=== PATIENT | male | born 1950 | race Caucasian/White ===

== ENCOUNTER 2016-06-12 10:15 | Emergency (ER) | payer SELFPAY ==
[~2016-06-12] VITALS: Wt 81.0 kg
== END 2016-06-12 15:20 | disposition left against medical advice (07) ==
LOC: E/R 10:15
DX: Z53.21 Procedure and treatment not carried out due to patient leaving prior to being seen by health care provider (principal)

== ENCOUNTER 2016-08-04 03:07 | Inpatient (IN) | payer MEDICARE, OTHER ==
[~2016-08-04] VITALS: Ht 165.1 cm; Wt 80.2 kg
[2016-08-04] MEDS ORDERED: SOD CHLORIDE 0.9% 1,000 ML IV STA (03:35)
[2016-08-04] MEDS ORDERED: morphine 4 MG/ML VIAL IV STA (03:35)
[2016-08-04] MEDS ORDERED: FAMOTIDINE 20 MG INJ IV STA (03:35)
[2016-08-04] MEDS ORDERED: ONDANSETRON 4 MG INJ IV STA (03:35)
--- NOTE | 2016-08-04 04:22 | RADRPT ---
PROCEDURE: CT abdomen and pelvis without intravenous contrast. CLINICAL INDICATION: Pain. TECHNIQUE: CT of the abdomen/pelvis was performed utilizing axial images with reconstructions in s agittal and coronal planes. The administered radiation dose is CTDI 12.8 mGy, DLP 820.4 mGy-cm. COMPARISON: No pertinent prior examinations were submitted for comparison. FINDINGS: Visualized Chest: There is moderate cardiomegaly. Some coronary artery and aortic valvular calcific ations are noted. Abdomen: The spleen, pancreas, and adrenal glands are unremarkable. Stones are noted within the gallbladde r. The liver is diffusely decreased in attenuation, compatible with hepatic steatosis. The kidneys are without hydronephrosis. No definite urinary calculi are seen. Multiple moderately dilated loops of small bowel are noted in the left abdomen. The distal small ariella wel is collapsed. A transition point is noted within the midabdomen at the site of a small bowel an astomoses. Some feculent material is noted within the more proximal loops along with some mild surr ounding inflammatory changes. There is no intra-abdominal free air. No intra-abdominal fluid colle ctions are seen. Numerous diverticula are noted along the descending and sigmoid colon without evid ence of diverticulitis. The appendix is normal. There is no evidence of intra-abdominal adenopathy or free fluid. Pelvis: There is streak artifact from a left total hip replacement which limits evaluation of the pelvis. T he prostate is grossly unremarkable. No pelvic adenopathy or free fluid is seen. The urinary bladd er is unremarkable. Small bilateral fat containing inguinal hernias are noted. Osseous structures: The left total hip replacement is noted. IMPRESSION: Small bowel obstruction with a transition point regional to a small bowel anastomoses in the midabdo men. Hepatic steatosis. Cholelithiasis. Colonic diverticulosis. Small bilateral fat containing inguinal hernias. RPTAT: HIKT .Mikey Bowman MD, MD Date Time Electronically viewed and signed by .Mikey Bowman MD, on 08/04/2016 04:21 .T/
[2016-08-04 04:43] LABS: ADD SCAN DIFF NO
[2016-08-04 04:52] LABS: BASOPHILS % 0.5 % (0.0-2.0); EOSINOPHILS # 0.1 10^3/ul (0.0-0.5); EOSINOPHILS % 0.7 % (0.0-7.0); HEMATOCRIT 39.2 % (42.0-52.0); HEMOGLOBIN 11.9 g/dl (14.0-18.0); LYMPHOCYTES # 1.1 10^3/ul (0.8-2.9); LYMPHOCYTES % 12.7 % (15.0-51.0); MEAN CORPUSCULAR HEMOGLOBIN 24.2 pg (29.0-33.0); MEAN CORPUSCULAR HGB CONC 30.4 g/dl (32.0-37.0); MEAN CORPUSCULAR VOLUME 79.7 fl (82.0-101.0); MEAN PLATELET VOLUME 9.8 fl (7.4-10.4); NEUTROPHIL # 6.3 10^3/ul (1.6-7.5); NEUTROPHILS % 73.9 % (39.0-77.0); PLATELET COUNT 213 10^3/UL (140-415); RED BLOOD COUNT 4.92 10^6/ul (4.70-6.10); RED CELL DISTRIBUTION WIDTH 15.2 % (11.5-14.5); WHITE BLOOD COUNT 8.5 10^3/ul (4.8-10.8)
[2016-08-04 04:54] LABS: ADD UMIC NO; ALBUMIN 3.7 g/dl (3.3-4.9); URINE BILIRUBIN (Dip) NEGATIVE (NEGATIVE); URINE BLOOD (Dip) NEGATIVE (NEGATIVE); URINE COLOR YELLOW (YELLOW); URINE GLUCOSE (Dip) NEGATIVE (NEGATIVE); URINE KETONES (Dip) NEGATIVE (NEGATIVE); URINE LEUKOCYTE ESTERASE (Dip) NEGATIVE (NEGATIVE); URINE NITRITE (Dip) NEGATIVE (NEGATIVE); URINE TOTAL PROTEIN (Dip) NEGATIVE (NEGATIVE); URINE UROBILINOGEN (Dip) 0.2 E.U./dL (0.1-1.0)
[2016-08-04 04:57] LABS: ALBUMIN/GLOBULIN RATIO 1.37; BILIRUBIN,INDIRECT 0.3 mg/dl (0-1.1); BILIRUBIN,TOTAL 0.3 mg/dl (0.2-1.3); CREATININE 0.75 mg/dl (0.61-1.24); TOTAL PROTEIN 6.4 g/dl (6.1-8.1)
[2016-08-04 04:58] LABS: CALCIUM 8.7 mg/dl (8.4-10.2)
--- NOTE | 2016-08-04 04:59 | ERA ---
ER Documentation Chief Complaint Date/Time DATE: 08/04/16 TIME: 04:58 Chief Complaint LLQ ABD PAIN SINCE 6PM LAST NIGHT, +N/V -DIARRHEA HPI This is a 65-year-old male with left thoracoabdominal (pain last night. He had nausea vomiting. He has had no diarrhea. Last bowel movement 2 days ago. Patient is a history of stomach surgery remotely. ROS All systems reviewed and are negative except as per history of present illness. PMhx/Soc History of Surgery: Yes (STOMACH SX) Anesthesia Reaction: No Hx Neurological Disorder: No Hx Respiratory Disorders: Yes (TUBERCULOSIS) Hx Psychiatric Problems: No Hx Miscellaneous Medical Probl: No Hx Alcohol Use: No Hx Substance Use: No Hx Tobacco Use: No Smoking Status: Never smoker Physical Exam Vitals Vital Signs Date Time Temp Pulse Resp B/P Pulse Ox O2 Delivery O2 Flow Rate FiO2 08/04/16 04:39 61 18 112/62 97 Room Air 08/04/16 03:11 98.6 64 18 138/73 97 Physical Exam Const: [] Head: Atraumatic Eyes: Normal Conjunctiva ENT: Normal External Ears, Nose and Mouth. Neck: Full range of motion..~ No meningismus. Resp: Clear to auscultation bilaterally Cardio: Regular rate and rhythm, no murmurs Abd: Soft, non tender, non distended. Normal bowel sounds Skin: No petechiae or rashes Back: No midline or flank tenderness Ext: No cyanosis, or edema Neur: Awake and alert Psych: Normal Mood and Affect Result Diagram: 08/04/16 0426 Results 24 hrs Laboratory Tests Test 08/04/16 04:26 Basophils # 0.010^3/ul Basophils % 0.5% Eosinophils # 0.110^3/ul Eosinophils % 0.7% Hematocrit 39.2% Hemoglobin 11.9g/dl Lymphocytes # 1.110^3/ul Lymphocytes % 12.7% Mean Corpuscular Hemoglobin 24.2pg Mean Corpuscular Hemoglobin Concent 30.4g/dl Mean Corpuscular Volume 79.7fl Mean Platelet Volume 9.8fl Monocytes # 1.010^3/ul Monocytes % 12.0% Neutrophils # 6.310^3/ul Neutrophils % 73.9% Nucleated Red Blood Cells # 0.010^3/ul Nucleated Red Blood Cells % 0.0/100WBC Platelet Count 53773^3/UL Red Blood Count 4.9210^6/ul Red Cell Distribution Width 15.2% White Blood Count 8.510^3/ul Current Medications Medications (Trade) Dose Ordered Sig/Karoline Route PRN Reason Start Time Stop Time Status Last Admin Dose Admin Sodium Chloride (NS) 1,000 ml @ 1,000 mls/hr Q1H STAT IV 08/04/16 03:35 08/04/16 04:34 DC 08/04/16 04:37 Morphine Sulfate (morphine) 4 mg ONCE STAT IV 08/04/16 03:35 08/04/16 03:37 DC 08/04/16 04:38 Ondansetron HCl (Zofran Inj) 4 mg ONCE STAT IV 08/04/16 03:35 08/04/16 03:37 DC 08/04/16 04:38 Famotidine (Pepcid Iv) 20 mg ONCE STAT IV 08/04/16 03:35 08/04/16 03:37 DC 08/04/16 04:38 Procedures/MDM Medical decision-makin-year-old male with evidence of small bowel obstruction. Patient will be admitted to hospitalist. Dr. Mcarthur has been consulted for surgery. Departure Diagnosis: Primary Impression: Abdominal pain Qualified Code: R10.84 - Generalized abdominal pain Additional Impression: Small bowel obstruction Condition: Serious SAVI JACOBS Aug 04, 2016 04:59
[2016-08-04 05:07] LABS: POTASSIUM 4.1 mmol/L (3.5-5.1)
[2016-08-04 05:27] VITALS: TEMP 97.7
[2016-08-04 05:53] VITALS: BP 139/66; RESP 18
[2016-08-04 05:59] VITALS: Ht 165.1 cm; Wt 80.2 kg
[2016-08-04] MEDS ORDERED: morphine 4 MG/ML VIAL IV PRN (06:30)
[2016-08-04] MEDS ORDERED: ISON300T72 PO (08:36)
[2016-08-04] MEDS: DEXTROSE 5%-0.45% NACL 1,000 ML IV SCH ×4 (08:39→19:55)
[2016-08-04 09:57] LABS: CHOL/HDL RATIO 3.4 RATIO
[2016-08-04 10:33] VITALS: BP 138/66; PULSE 55; RESP 18
--- NOTE | 2016-08-04 10:55 | HP ---
DATE OF ADMISSION: 08/04/2016 CHIEF COMPLAINT: Abdominal pain. HISTORY OF PRESENT ILLNESS: The patient is 65-year-old male with a history of chronic abdominal lucina n, of abdominal surgery who presented to the emergency department with abdominal pain. He sta bennie that his pain is mainly localized in the left lower quadrant area and this particular pain has b een going on for a few days now. He states he has been having abdominal pain for about 5 years and he went on to say that in 2013 at [facility], he had from his description what seems like a laparoto my. He stated he did the surgery because "I was having pain and they did not find anything." He st ates that he has been having abdominal pain sometimes every month, sometimes weekly for about 5 year s now. He denied any nausea or vomiting, chest pain, shortness of breath, fever or chills. He stat ed he has been having no issues with bowel movement and he has been passing gas. He denied abdomina l distention and his abdomen is actually soft and nondistended. When he came to the ER, imaging ar ws possible small-bowel obstruction and as such, he is admitted for surgical evaluation. REVIEW OF SYSTEMS: A 12-point review of systems was performed and is negative except as mentioned i n the HPI. PAST MEDICAL HISTORY: As per HPI. SOCIAL HISTORY: He drinks alcohol occasionally. Denied a history of tobacco or illicit drug use. ALLERGIES AND HOME MEDICATIONS: Please see meds. PHYSICAL EXAMINATION: GENERAL: The patient is lying in bed in no acute distress. He is answering questions appropriately and able to speak in full sentences. HEENT: No obvious head deformity. Pupils are reactive to light. Extraocular muscles intact. CARDIOVASCULAR: Regular rate and rhythm. No extra sounds. LUNGS: Clear. ABDOMEN: Soft. There is tenderness to palpation in the left lower quadrant area. There is some gu arding to deep palpation in that area. His abdomen is soft. It is not rigid. It is not distended. There are positive bowel sounds. EXTREMITIES: No edema. IMPRESSION: 1. Small-bowel obstruction. 2. Left lower quadrant abdominal pain, likely secondary to above. 3. History of abdominal surgery. PLAN: We will keep him n.p.o. We will provide pain medication and antiemetics as needed. Currentl y, he is awaiting surgical evaluation by Dr. Mcarthur. His abdomen is soft and is not distended and a s such, an NG tube is not warranted at this time. Further workup and management per clinical course. Dictated By: SAVI GUERRA/CELESTE Conf#: [id number] DID#: [id number]
--- NOTE | 2016-08-04 11:28 | HP ---
DATE OF ADMISSION: 08/04/2016 REASON FOR CONSULTATION: Small-bowel obstruction. HISTORY OF PRESENT ILLNESS: The patient is a 65-year-old male who presents to the emergency room wi th nausea and vomiting with a history of no bowel movements for [address] in the emergency room sh owed a small-bowel obstruction with a transition point at a small bowel anastomosis. According to t he patient, he had surgery 2-1/2 years ago at [facility] for what sounds like a small-bowel obstruct ion. He has had no fevers or chills. PAST MEDICAL HISTORY: As noted above. OUTPATIENT MEDICATIONS: Patient takes INH for tuberculosis. ALLERGIES: NONE. REVIEW OF SYSTEMS: HEAD, EARS, EYES, NOSE AND THROAT: Unremarkable. PULMONARY: As in the HPI. CARDIAC: No history of chest pain or arrhythmia. ABDOMEN: As in the HPI. EXTREMITIES: Unremarkable. PHYSICAL EXAMINATION: GENERAL: The patient is a non-Welsh speaking male who is awake and alert, in no acute di stress. HEAD, EARS, EYES, NOSE, THROAT: Within normal limits. LUNGS: Clear. HEART: Regular rhythm. ABDOMEN: Soft and nontender. There is a well-healed vertical midline scar with several small reduc ible hernias. EXTREMITIES: Unremarkable. LABORATORY DATA: Hematocrit is 39.2 with a white count of 8500. BUN, glucose, electrolytes are unr emarkable. IMPRESSION: Small bowel noted on CT scan. PLAN: The patient will undergo small bowel follow through. Further recommendations will be forthco darlene based on the patient's further workup and clinical course. Dictated By: FLY DODD/CELESTE Conf#: [id number] DID#: [id number]
[2016-08-04] MEDS: ONDANSETRON 4 MG INJ IV PRN (14:13)
[2016-08-04] MEDS ORDERED: DIATR MEGLU/DIATRIZOATE SODIUM 120 ML BTL ONE (14:42)
[2016-08-04 15:39] VITALS: BP 156/70; PULSE 64; RESP 21
--- NOTE | 2016-08-04 17:42 | RADRPT ---
PROCEDURE: XR small bowel follow-through series CLINICAL INDICATION: Abdominal pain. Small bowel obstruction pattern on the CT TECHNIQUE: AP abdomen x-ray, supine slot floor person images, immediate, 15-minute, 30-minute point, 60-minute and 2-hour AP supine images after the administration of an and certain amount of non-specified ente grazyna contrast media. COMPARISON: Noncontrast CT abdomen and pelvis 08/04/2016 FINDINGS: Recruiting Team Lead images demonstrate gas within the colon and some no gaseous distended loops of the jejunum. T here is no evidence of pathologic calcification. The immediate image demonstrates contrast within the stomach which is normal in caliber as well as i n the duodenum and the jejunum without evidence of distension. At 30 minutes and 60 minutes there i s contrast media within the jejunum and majority of the ileum, the maximum caliber of the jejunum ap proximately 3.1 cm. At 2 hours, contrast media seen within the colon to the level of the splenic fl exure. Note is made of a left hip arthroplasty changes. No acute osseous abnormality is evident, mi ld lumbar spondylosis is seen. RPTAT:HJJR IMPRESSION: Small bowel follow-through series demonstrates contrast media reaching the splenic flexure 2 hours a fter ingestion, the pattern more consistent with an adynamic ileus than the mid small bowel obstruct ion as suggested on the CT of 08/04/2016. Physician Tiffany Date Time Electronically viewed and signed by Physician Tiffany on 08/04/2016 17:41 /
[2016-08-04 19:43] VITALS: BP 119/66; RESP 18
[2016-08-05] MEDS: DEXTROSE 5%-0.45% NACL 1,000 ML IV SCH ×2 (05:21→15:34)
[2016-08-05 05:29] LABS: ADD SCAN DIFF NO
[2016-08-05 05:47] LABS: BASOPHILS % 0.6 % (0.0-2.0); EOSINOPHILS # 0.1 10^3/ul (0.0-0.5); EOSINOPHILS % 1.9 % (0.0-7.0); HEMATOCRIT 36.8 % (42.0-52.0); HEMOGLOBIN 11.1 g/dl (14.0-18.0); LYMPHOCYTES # 1.2 10^3/ul (0.8-2.9); LYMPHOCYTES % 25.2 % (15.0-51.0); MEAN CORPUSCULAR HEMOGLOBIN 24.2 pg (29.0-33.0); MEAN CORPUSCULAR HGB CONC 30.2 g/dl (32.0-37.0); MEAN CORPUSCULAR VOLUME 80.3 fl (82.0-101.0); MEAN PLATELET VOLUME 9.7 fl (7.4-10.4); MONOCYTE # 0.7 10^3/ul (0.3-0.9); MONOCYTES % 13.7 % (0.0-11.0); NEUTROPHIL # 2.8 10^3/ul (1.6-7.5); NEUTROPHILS % 58.4 % (39.0-77.0); PLATELET COUNT 218 10^3/UL (140-415); RED BLOOD COUNT 4.58 10^6/ul (4.70-6.10); RED CELL DISTRIBUTION WIDTH 15.6 % (11.5-14.5); WHITE BLOOD COUNT 4.8 10^3/ul (4.8-10.8)
[2016-08-05 05:49] LABS: POTASSIUM 3.9 mmol/L (3.5-5.1)
[2016-08-05 05:52] LABS: CREATININE 0.77 mg/dl (0.61-1.24)
[2016-08-05 05:53] LABS: CALCIUM 8.1 mg/dl (8.4-10.2)
[2016-08-05 07:24] VITALS: BP 120/60; RESP 18
[2016-08-05] MEDS: PANTOPRAZOLE 40 MG INJ IV SCH (09:49)
--- NOTE | 2016-08-05 10:51 | PN ---
DATE: 08/05/2016 SUBJECTIVE: The patient has less abdominal pain, had small bowel follow through performed yesterday . No acute events overnight. OBJECTIVE: VITAL SIGNS: Stable except the heart rate is in the 55 to 64 range, rest of the vitals are stable. GENERAL: Patient sitting in chair, answering questions appropriately. No acute distress. HEENT: Pupils equal, round, reactive to light. Extraocular muscles intact. NECK: Supple, no thyromegaly. LUNGS: Clear to auscultation bilaterally. CARDIOVASCULAR: S1, S2 heard. No rubs or gallops. ABDOMEN: Soft, nontender, nondistended. Hypoactive bowel sounds. No rebound or guarding. MUSCULOSKELETAL: No lower extremity edema bilaterally. NEUROLOGIC: No focal deficits. LABORATORY DATA: Basic metabolic panel is normal. CBC is normal. Again, small bowel follow throug h shows contrast media reaching the splenic flexure 2 hours after ingestion. Pattern is more consis tent with an adynamic ileus than the mid small-bowel obstruction as suggested on the CT scan. ASSESSMENT AND PLAN: A 65-year-old male with history of chronic abdominal pain and abdominal surger ies who presents with ileus versus small-bowel obstruction, slowly improving. 1. Again, abdominal pain secondary to looks like small-bowel obstruction versus ileus, slowly impro ving. For now, continue n.p.o. status but follow with general surgery team given the results of the small bowel follow through. It may be okay to start diet on the patient. He apparently is having b owel movement as well. Continue pain control medications as needed. 2. Questionable history of remote TB. The patient apparently has been taking isoniazid INH as an ou tpatient for the last 8 months. We will continue that now. No signs of any coughing or fevers or c hills. 3. Gastrointestinal prophylaxis. Add PPI. 4. Deep venous thrombosis prophylaxis, sequential compression devices. Dictated By: MICHELLE STALLINGS Conf#: [id number] DID#: [id number]
[2016-08-05] MEDS: ONDANSETRON 4 MG INJ IV PRN (11:09)
--- NOTE | 2016-08-05 16:09 | PN ---
DATE: HISTORY OF PRESENT ILLNESS: The small bowel follow through shows no obstruction. He has had 2 christopher l movements and his pain has resolved. PLAN: Start clear liquids. The patient can be advanced as tolerated and can be discharged if myra ates general diet. Dictated By: FLY DODD/CELESTE Conf#: [id number] DID#: [id number]
[2016-08-05 19:21] VITALS: BP 123/60; RESP 18
[2016-08-06] MEDS: DEXTROSE 5%-0.45% NACL 1,000 ML IV SCH ×2 (01:32→08:30)
[2016-08-06] MEDS: PANTOPRAZOLE 40 MG INJ IV SCH (05:27)
[2016-08-06 05:31] LABS: ADD SCAN DIFF NO
[2016-08-06 05:34] LABS: BASOPHILS % 0.6 % (0.0-2.0); EOSINOPHILS # 0.1 10^3/ul (0.0-0.5); EOSINOPHILS % 1.5 % (0.0-7.0); HEMATOCRIT 37.9 % (42.0-52.0); HEMOGLOBIN 11.3 g/dl (14.0-18.0); LYMPHOCYTES # 1.3 10^3/ul (0.8-2.9); LYMPHOCYTES % 25.3 % (15.0-51.0); MEAN CORPUSCULAR HGB CONC 29.8 g/dl (32.0-37.0); MEAN CORPUSCULAR VOLUME 80.6 fl (82.0-101.0); MEAN PLATELET VOLUME 9.7 fl (7.4-10.4); MONOCYTE # 0.6 10^3/ul (0.3-0.9); MONOCYTES % 12.4 % (0.0-11.0); NEUTROPHIL # 3.1 10^3/ul (1.6-7.5); NEUTROPHILS % 59.8 % (39.0-77.0); PLATELET COUNT 212 10^3/UL (140-415); RED CELL DISTRIBUTION WIDTH 15.7 % (11.5-14.5); WHITE BLOOD COUNT 5.2 10^3/ul (4.8-10.8)
[2016-08-06 05:45] LABS: POTASSIUM 3.8 mmol/L (3.5-5.1)
[2016-08-06 05:47] LABS: CREATININE 0.73 mg/dl (0.61-1.24)
[2016-08-06 05:48] LABS: CALCIUM 8.1 mg/dl (8.4-10.2)
[2016-08-06 07:48] VITALS: BP 131/66; RESP 18
--- NOTE | 2016-08-06 10:01 | PDOCDIS ---
Discharge Instructions CONDITION Patient Condition: Stable HOME CARE INSTRUCTIONS: Diet Instructions: Regular ACTIVITY: Activity Restrictions: Slowly Increase Activity FOLLOW UP/APPOINTMENTS Appointments Please take your medications as prescribed, and see your doctor in clinic in 1 week. MICHELLE ADHIKARI Aug 06, 2016 10:01
[2016-08-06] MEDS ORDERED: ONDA-43 PO (10:02)
--- NOTE | 2016-08-06 10:06 | PN ---
DATE: 08/06/2016 The patient is tolerating a diet and has had bowel function. He has no abdominal pain. His abdomin al examination is benign. PLAN: The patient can be discharged. There are no further surgical recommendations. Dictated By: FLY DODD/CELESTE Conf#: [id number] DID#: [id number]
--- NOTE | 2016-08-06 10:27 | DS ---
DATE OF ADMISSION: 08/04/2016 DATE OF DISCHARGE: 08/06/2016 HOSPITAL COURSE: This is a 65-year-old male originally admitted on 08/04/2016 being discharged home on 08/06/2016. The patient came in with abdominal pain. He was found with a small-bowel obstructi on. He has had a prior history of abdominal surgery in the past. He was admitted, seen by general [facility] team. He was admitted to medical/surgical floor. He was initially made n.p.o. and conservat bri treatment was started. He underwent a small bowel follow-through study, which showed an adynami c ileus picture and again, patient was conservatively treated. After being evaluated by surgery isaac rodrigues, he was started on a clear liquid diet and he has been tolerating that well. If he handles a regu lar diet the rest of the day today, he has been given instructions by surgery team to be discharged today in improved condition. His vital signs remain stable. His labs remain stable. He had no fev ers. He was able to ambulate and tolerate a liquid diet at this point. Lipase was normal. DISCHARGE MEDICATIONS: If he goes today, he will be sent with the following medications: 1. Zofran 4 mg q.6h. p.r.n. 2. Continue isoniazid 300 mg daily. FOLLOWUP: He will need to follow up with a regular doctor in the clinic in the next 1 to 2 weeks. FINAL DIAGNOSES: 1. Abdominal pain secondary to small-bowel obstruction versus ileus, now slowly improving. 2. Remote history of tuberculosis, now taking isoniazid. No fevers, no leukocytosis, no cough pres ently. 3. History of chronic abdominal pain and prior history of abdominal surgery in the past. Time spent discharging the patient 40 minutes. Dictated By: MICHELLE STALLINGS Conf#: [id number] DID#: [id number]
[2016-08-06] MEDS ORDERED: ISONIAZID 300 MG TAB PO SCH (10:30)
[2016-08-07] MEDS ORDERED: PANTOPRAZOLE (EC) 40 MG TAB PO SCH (06:00)
== END 2016-08-06 14:51 | disposition home or self-care (01) | DRG 392 ==
LOC: E/R 03:07 → MS2 04:56
PROVIDERS: ADMIT Internal Medicine; ATTEND Internal Medicine
DX: R10.32 Left lower quadrant pain (principal); K56.60 Unspecified intestinal obstruction; K56.7 Ileus, unspecified; Z86.11 Personal history of tuberculosis
CPT/HCPCS: 36415; 74176; 74250; 80048; 80053; 80061; 81003; 83036; 83690; 85025; 96374; 96375; C9113; J2270; J2405; J7030; J7042

== ENCOUNTER 2016-12-17 03:49 | Inpatient (IN) | payer MEDICARE, OTHER ==
[~2016-12-17] VITALS: Ht 167.6 cm; Wt 82.8 kg
[~2016-12-17 03:49] MED LIST: ISON300T72 PO; ONDA-43 PO
[2016-12-17] MEDS ORDERED: morphine 4 MG/ML VIAL IV STA (04:08)
[2016-12-17] MEDS ORDERED: SOD CHLORIDE 0.9% 1,000 ML IV STA (04:08)
[2016-12-17] MEDS ORDERED: ONDANSETRON 4 MG INJ IV STA (04:08)
[2016-12-17 04:23] LABS: ADD SCAN DIFF NO
[2016-12-17 04:24] LABS: BASOPHILS % 0.5 % (0.0-2.0); EOSINOPHILS # 0.1 10^3/ul (0.0-0.5); EOSINOPHILS % 0.6 % (0.0-7.0); HEMATOCRIT 43.4 % (42.0-52.0); HEMOGLOBIN 13.9 g/dl (14.0-18.0); LYMPHOCYTES # 1.4 10^3/ul (0.8-2.9); MEAN CORPUSCULAR HEMOGLOBIN 26.7 pg (29.0-33.0); MEAN CORPUSCULAR VOLUME 83.3 fl (82.0-101.0); MEAN PLATELET VOLUME 10.2 fl (7.4-10.4); MONOCYTE # 0.8 10^3/ul (0.3-0.9); MONOCYTES % 10.3 % (0.0-11.0); NEUTROPHIL # 5.7 10^3/ul (1.6-7.5); NEUTROPHILS % 71.3 % (39.0-77.0); PLATELET COUNT 167 10^3/UL (140-415); RED BLOOD COUNT 5.21 10^6/ul (4.70-6.10); RED CELL DISTRIBUTION WIDTH 17.8 % (11.5-14.5)
[2016-12-17 04:58] LABS: ALBUMIN 4.7 g/dl (3.3-4.9); ALBUMIN/GLOBULIN RATIO 1.74; BILIRUBIN,INDIRECT 0.3 mg/dl (0-1.1); BILIRUBIN,TOTAL 0.3 mg/dl (0.2-1.3); CALCIUM 8.7 mg/dl (8.4-10.2); CREATININE 0.86 mg/dl (0.61-1.24); POTASSIUM 4.2 mmol/L (3.5-5.1); TOTAL PROTEIN 7.4 g/dl (6.1-8.1)
--- NOTE | 2016-12-17 05:06 | RADRPT ---
PROCEDURE: CT Abdomen and pelvis without contrast. CLINICAL INDICATION: Abdominal pain. TECHNIQUE: CT scan of the abdomen and pelvis was performed on a multi-detector high-resolution CT scanner. Contiguous axial images were obtained from the lung bases to the ischial tuberosities wit hout intravenous contrast. Coronal and sagittal reformatted images were also obtained. Images were reviewed on the PACS workstation. One or more of the following dose reduction techniques were used: - Automated exposure control. - Adjustment of the mA and/or kV according to patient size. - Use of iterative reconstruction technique. Exam CTD/vol = 16.28 mGy. Total exam DLP = 1040.07 mGy-cm. COMPARISON: 08/04/2016. FINDINGS: Evaluation of the lung bases demonstrates mild bibasilar atelectasis. The heart is mildly enlarged Abdomen: The liver is normal in size. There is no focal mass or dilatation of the biliary tree. T he gallbladder is not distended. Multiple gallstones are identified. The spleen, pancreas and bila teral adrenal glands are within normal limits. Bilateral kidneys are normal in size with a small cy st within the upper pole of the left kidney. There is no radiopaque renal or ureteral calculus iden tified. There is no hydronephrosis or hydroureter. There is no retroperitoneal adenopathy. The ab dominal aorta is of normal caliber with scattered atherosclerotic calcifications. There are mildly distended loops of small bowel with air-fluid levels compatible with an ileus. The re is moderate retained stool within the colon. There is no bowel obstruction or free air. A kinza l appendix is identified. There are scattered diverticuli within the descending and sigmoid colon w ithout evidence of diverticulitis. There is no ascites. Pelvis: The bladder is unremarkable. There are bilateral small inguinal hernias containing fat. T he prostate and seminal vesicles are within normal limits. There is no significant pelvic adenopath y or free fluid. Evaluation of the osseous structures demonstrates no suspicious lytic or blastic lesion. The patient status post total left hip arthroplasty. IMPRESSION: Mildly distended loops of small bowel with air-fluid levels compatible with an ileus. There is no ariella wel obstruction. Descending and sigmoid diverticulosis without evidence of diverticulitis. Moderate retained stool within the colon. Bilateral small inguinal hernias containing fat. Cholelithiasis. Mild bibasilar atelectasis. Mild cardiomegaly. Vascular calcifications reflective of atherosclerosis. .Dwight Alston MD, Date Time Electronically viewed and signed by .Dwight Alston MD, on 12/17/2016 05:05 .T/
[2016-12-17] MEDS ORDERED: ONDANSETRON 4 MG INJ IV PRN (07:00)
[2016-12-17] MEDS ORDERED: ACETAMINOPHEN 325 MG TAB PO PRN (07:00)
--- NOTE | 2016-12-17 07:08 | ERA ---
ER Documentation Chief Complaint Date/Time DATE: 12/17/16 TIME: 07:05 Chief Complaint c/o abd pain x 2 days. (+) n/v. (+) abd surgery 2 yrs ago. HPI 66-year-old male with history of small bowel obstruction 2 years ago and diabetes presents with mid abdominal pain for the last 2 days with nausea and several episodes of vomiting. Vomiting is nonbloody and nonbilious. Denies diarrhea, states does suffer from constipation from time to time. No fever and chills ROS All systems reviewed and are negative except as per history of present illness. Medications Home Meds Active Scripts Ondansetron Hcl* (Zofran*) 4 Mg Tab, 4 MG PO Q6H Y for NAUSEA AND OR VOMITING, # 10 TAB Prov:MICHELLE ADHIKARI S. 08/06/16 Reported Medications Isoniazid* (Isoniazid*) 300 Mg Tablet, 300 MG PO DAILY, TAB 08/04/16 Allergies Allergies: Coded Allergies: No Known Allergies (Verified Allergy, Unknown, 08/04/16) PMhx/Soc History of Surgery: Yes (COLON SX 2013, LEFT HIP SX) Anesthesia Reaction: No Hx Neurological Disorder: No Hx Respiratory Disorders: No Hx Cardiac Disorders: No Hx Psychiatric Problems: No Hx Miscellaneous Medical Probl: No Hx Alcohol Use: No Hx Substance Use: No Hx Tobacco Use: No Smoking Status: Never smoker Physical Exam Vitals Vital Signs Date Time Temp Pulse Resp B/P Pulse Ox O2 Delivery O2 Flow Rate FiO2 12/17/16 03:52 98.9 82 20 165/72 98 Physical Exam Const: [] Mild distress, appears uncomfortable Head: Atraumatic Eyes: Normal Conjunctiva ENT: Normal External Ears, Nose and Mouth. Neck: Full range of motion..~ No meningismus. Resp: Clear to auscultation bilaterally Cardio: Regular rate and rhythm, no murmurs Abd: Soft, mild diffuse tenderness with moderate tenderness about the mid abdomen without guarding or rebound, non distended. Normal bowel sounds Skin: No petechiae or rashes Back: No midline or flank tenderness Ext: No cyanosis, or edema Neur: Awake and alert and oriented 3, no focal deficit Psych: Normal Mood and Affect Result Diagram: 12/17/1640912/17/16409 Results 24 hrs Laboratory Tests Test 12/17/16 04:10 White Blood Count 8.010^3/ul Red Blood Count 5.2110^6/ul Hemoglobin 13.9g/dl Hematocrit 43.4% Mean Corpuscular Volume 83.3fl Mean Corpuscular Hemoglobin 26.7pg Mean Corpuscular Hemoglobin Concent 32.0g/dl Red Cell Distribution Width 17.8% Platelet Count 94641^3/UL Mean Platelet Volume 10.2fl Neutrophils % 71.3% Lymphocytes % 17.0% Monocytes % 10.3% Eosinophils % 0.6% Basophils % 0.5% Nucleated Red Blood Cells % 0.0/100WBC Neutrophils # 5.710^3/ul Lymphocytes # 1.410^3/ul Monocytes # 0.810^3/ul Eosinophils # 0.110^3/ul Basophils # 0.010^3/ul Nucleated Red Blood Cells # 0.010^3/ul Sodium Level 136mmol/L Potassium Level 4.2mmol/L Chloride Level 102mmol/L Carbon Dioxide Level 24mmol/L Anion Gap 14 Blood Urea Nitrogen 16mg/dl Creatinine 0.86mg/dl Glucose Level 114mg/dl Calcium Level 8.7mg/dl Total Bilirubin 0.3mg/dl Direct Bilirubin 0.00mg/dl Indirect Bilirubin 0.3mg/dl Aspartate Amino Transf (AST/SGOT) 28IU/L Alanine Aminotransferase (ALT/SGPT) 30IU/L Alkaline Phosphatase 91IU/L Total Protein 7.4g/dl Albumin 4.7g/dl Globulin 2.70g/dl Albumin/Globulin Ratio 1.74 Lipase 140U/L Current Medications Medications (Trade) Dose Ordered Sig/Karoline Route PRN Reason Start Time Stop Time Status Last Admin Dose Admin Sodium Chloride (NS) 1,000 ml @ 1,000 mls/hr Q1H STAT IV 12/17/16 04:08 12/17/16 05:07 DC 12/17/16 04:14 Morphine Sulfate (morphine) 4 mg ONCE STAT IV 12/17/16 04:08 12/17/16 04:10 DC 12/17/16 04:14 Ondansetron HCl (Zofran Inj) 4 mg ONCE STAT IV 12/17/16 04:08 12/17/16 04:10 DC 12/17/16 04:14 Ondansetron HCl (Zofran Inj) 4 mg BRIDGE ORDER PRN IV NAUSEA AND/OR VOMITING 12/17/16 07:00 12/18/16 06:59 Acetaminophen (Tylenol Tab) 650 mg ER BRIDGE PRN PO MILD PAIN/FEVER 12/17/16 07:00 12/18/16 06:59 Procedures/MDM High risk patient with ileus. No signs of infection or unstable vital signs. Patient was given morphine and Zofran with relief of his nausea and some relief of his pain. Is also given IV fluid. Going to give any further doses of narcotics as the patient is already suffering from an ileus. I believe the patient should be admitted because he has had the resection before and like to prevent any further need for surgical intervention. I did speak with Dr. Mcleod, general surgeon on-call who will see the patient on consult. Spoke with Dr. Prince will be admitting. CT abdomen pelvis interpretation: Ileus without signs of overt obstruction, no free air, no abnormal fat stranding, no fracture Departure Diagnosis: Primary Impression: Abdominal pain Additional Impressions: Ileus Vomiting Condition: Stable KOSTA ARCE DO Dec 17, 2016 07:08
[2016-12-17] MEDS: DEXTROSE 5%-0.45% NACL 1,000 ML IV SCH ×2 (09:08→19:27)
[2016-12-17 09:27] LABS: MAGNESIUM 2.1 mg/dl (1.7-2.5); PHOSPHORUS 2.6 mg/dl (2.5-4.9)
--- NOTE | 2016-12-17 10:11 | HP ---
Date/Time of Note Date/Time of Note DATE: 12/17/16 TIME: 10:10 Assessment/Plan VTE Prophylaxis VTE Prophylaxis Intervention: SCD's Assessment/Plan Assessment/Plan 66-year-old male who presents with abdominal pain, nausea and vomiting as well as chronic constipation managed as follows: 1. Abdominal ileus likely secondary to chronic opioid use, no evidence of bowel obstruction on imaging 2. Abdominal pain, nausea vomiting likely secondary to #1 3. Incidental finding of cholelithiasis without cholecystitis: Stable 4. Asymptomatic bradycardia: Clear, Possible Electrolyte Abnormality 5. Diverticulosis without Diverticulitis Plan Change admits to telemetry, rule out an acute coronary syndrome, get a 2D echo, get official EKG, get magnesium and phosphorus levels Clear liquid diet, antiemetics, stool softeners and laxatives, surgical consult already obtained Pain control, further interventions per clinical course Supportive care. Prophylaxis: Pepcid/SCDs HPI/ROS Admit Date/Time Admit Date/Time 12/17/16 Hx of Present Illness This 66-year-old male who presented to the emergency room with abdominal pain nausea vomiting. about one days duration associated with pain is located in the mid abdomen. Chest and the patient does have intermittent episodes of constipation but at this time did have a bowel movement fairly recently. Imaging is showing ileus. Has had a history of hip surgery and abdominal surgery in the past and has been on opiate therapy on and off. He denies fever , denies chest pain, denies shortness of breath. He had an episode of bradycardia to the 30s and 40s, but this was asymptomatic. He had no dizziness , no fainting spells. Patient however did have a good volume of vomiting per his report. ROS 12 point review if systems was done and pertinent findings are as noted. PMH/Family/Social Past Medical History * Arthritis * Latent TB Past Surgical History 1: Colon Surgery 2. Left hip surgery Family History Significant Family History: no pertinent family hx Social History Alcohol Use: none Smoking Status: Never smoker Exam/Review of Systems Vital Signs Vitals Vital Signs Date Time Temp Pulse Resp B/P Pulse Ox O2 Delivery O2 Flow Rate FiO2 12/17/16 10:07 48 14 125/65 100 Room Air 2.0 Nasal Cannula 12/17/16 03:52 98.9 Exam Exam Constitutional: alert, oriented Head: atraumatic, normocephalic Neck: non-tender, supple Respiratory: clear to auscultation Cardiovascular: regular rate and rhythm Gastrointestinal: S/ NT / ND / +BS Extremities: no edema, good radial pulses Labs Result Diagram: 12/17/1640912/17/16409 Medications Medications Current Medications Dextrose/Sodium Chloride (D5-1/2ns) 1,000 ml @ 100 mls/hr Q10H IV Last administered on 12/17/16t 09:08; Admin Dose 100 MLS/HR; Start 12/17/16 at 09:00 Procedures Procedures Laboratory Tests Test 12/17/16 04:10 12/17/16 09:01 White Blood Count 8.010^3/ul Red Blood Count 5.2110^6/ul Hemoglobin 13.9g/dl Hematocrit 43.4% Mean Corpuscular Volume 83.3fl Mean Corpuscular Hemoglobin 26.7pg Mean Corpuscular Hemoglobin Concent 32.0g/dl Red Cell Distribution Width 17.8% Platelet Count 61158^3/UL Mean Platelet Volume 10.2fl Neutrophils % 71.3% Lymphocytes % 17.0% Monocytes % 10.3% Eosinophils % 0.6% Basophils % 0.5% Nucleated Red Blood Cells % 0.0/100WBC Neutrophils # 5.710^3/ul Lymphocytes # 1.410^3/ul Monocytes # 0.810^3/ul Eosinophils # 0.110^3/ul Basophils # 0.010^3/ul Nucleated Red Blood Cells # 0.010^3/ul Sodium Level 136mmol/L Potassium Level 4.2mmol/L Chloride Level 102mmol/L Carbon Dioxide Level 24mmol/L Anion Gap 14 Blood Urea Nitrogen 16mg/dl Creatinine 0.86mg/dl Glucose Level 114mg/dl Calcium Level 8.7mg/dl Total Bilirubin 0.3mg/dl Direct Bilirubin 0.00mg/dl Indirect Bilirubin 0.3mg/dl Aspartate Amino Transf (AST/SGOT) 28IU/L Alanine Aminotransferase (ALT/SGPT) 30IU/L Alkaline Phosphatase 91IU/L Total Protein 7.4g/dl Albumin 4.7g/dl Globulin 2.70g/dl Albumin/Globulin Ratio 1.74 Lipase 140U/L Lactic Acid Level 0.7mmol/L Phosphorus Level 2.6mg/dl Magnesium Level 2.1mg/dl Current Medications Medications (Trade) Dose Ordered Sig/Karoline Route PRN Reason Start Time Stop Time Status Last Admin Dose Admin Sodium Chloride (NS) 1,000 ml @ 1,000 mls/hr Q1H STAT IV 12/17/16 04:08 12/17/16 05:07 DC 12/17/16 04:14 Morphine Sulfate (morphine) 4 mg ONCE STAT IV 12/17/16 04:08 12/17/16 04:10 DC 12/17/16 04:14 Ondansetron HCl (Zofran Inj) 4 mg ONCE STAT IV 12/17/16 04:08 12/17/16 04:10 DC 12/17/16 04:14 Ondansetron HCl (Zofran Inj) 4 mg BRIDGE ORDER PRN IV NAUSEA AND/OR VOMITING 12/17/16 07:00 12/18/16 06:59 Acetaminophen 650 mg 650 mg ER BRIDGE PRN PO MILD PAIN/FEVER 12/17/16 07:00 12/18/16 06:59 Dextrose/Sodium Chloride (D5-1/2ns) 1,000 ml @ 100 mls/hr Q10H IV 12/17/16 09:00 12/17/16 09:08 PROCEDURE: CT Abdomen and pelvis without contrast. CLINICAL INDICATION: Abdominal pain. TECHNIQUE: CT scan of the abdomen and pelvis was performed on a multi- detector high-resolution CT scanner. Contiguous axial images were obtained from the lung bases to the ischial tuberosities without intravenous contrast. Coronal and sagittal reformatted images were also obtained. Images were reviewed on the PACS workstation. One or more of the following dose reduction techniques were used: - Automated exposure control. - Adjustment of the mA and/or kV according to patient size. - Use of iterative reconstruction technique. Exam CTD/vol = 16.28 mGy. Total exam DLP = 1040.07 mGy-cm. COMPARISON: 08/04/2016. FINDINGS: Evaluation of the lung bases demonstrates mild bibasilar atelectasis. The heart is mildly enlarged Abdomen: The liver is normal in size. There is no focal mass or dilatation of the biliary tree. The gallbladder is not distended. Multiple gallstones are identified. The spleen, pancreas and bilateral adrenal glands are within normal limits. Bilateral kidneys are normal in size with a small cyst within the upper pole of the left kidney. There is no radiopaque renal or ureteral calculus identified. There is no hydronephrosis or hydroureter. There is no retroperitoneal adenopathy. The abdominal aorta is of normal caliber with scattered atherosclerotic calcifications. There are mildly distended loops of small bowel with air-fluid levels compatible with an ileus. There is moderate retained stool within the colon. There is no bowel obstruction or free air. A normal appendix is identified. There are scattered diverticuli within the descending and sigmoid colon without evidence of diverticulitis. There is no ascites. Pelvis: The bladder is unremarkable. There are bilateral small inguinal hernias containing fat. The prostate and seminal vesicles are within normal limits. There is no significant pelvic adenopathy or free fluid. Evaluation of the osseous structures demonstrates no suspicious lytic or blastic lesion. The patient status post total left hip arthroplasty. IMPRESSION: Mildly distended loops of small bowel with air-fluid levels compatible with an ileus. There is no bowel obstruction. Descending and sigmoid diverticulosis without evidence of diverticulitis. Moderate retained stool within the colon. Bilateral small inguinal hernias containing fat. Cholelithiasis. Mild bibasilar atelectasis. Mild cardiomegaly. Vascular calcifications reflective of atherosclerosis. .Dwight Alston MD, MD Date Time Electronically viewed and signed by .Dwight lAston MD, MD on 12/17/2016 05:05 .T/ CC: KOSTA ARCE DO I reviewed EKG Rate: Bradycardia Rhythm: sinus Note: No ST elevation or depressions noted concerning for acute ischemic event. YAMILETH FLEMING Dec 17, 2016 10:11
--- NOTE | 2016-12-17 11:11 | CONS ---
Date/Time of Note Date/Time of Note DATE: 12/17/16 TIME: 10:40 Assessment/Plan Assessment/Plan Chief Complaint/Hosp Course 1. Ileus: 2/2 opiates (takes narcotics intermittently for abdominal pain) , chemistry panel wnl, CT shows: Mildly distended loops of small bowel with air- fluid levels compatible with an ileus; no obstruction; cholelithiasis without cholecystitis, normal appendix; no recent surgeries -supportive -pain management with limited narcotics -judicious IV fluids -bowel rest 2. Abdominal pain: 2/2 above -as above 3. Descending and sigmoid diverticulosis: without evidence of diverticulitis -supportive 4. Cholelithiasis without cholecystitis; LFT's wnl -as above -eventual surgical intervention if symptomatic 5. Bradycardia: asymptomatic -supportive 6. Obesity: BMI; 31 -encourage weight loss Patient seen and examined in collaboration with Dr. Benny Mcleod Problems: Consultation Date/Type/Reason Admit Date/Time 12/17/16 Date of Consultation: Dec 17, 2016 Type of Consultation: SURGICAL Reason for Consultation ileus/sbo Referring Provider: YAMILETH FLEMING Hx of Present Illness Albert Herndon is a 66 yo man who presents to the ED with mid abdominal pain for that began yesterday. Associated symptoms include nausea and several episodes of vomiting with nonbloddy nonbilious emesis. He states that he has had similar pain in the past and has been seen in different hospitals for the same issue. He denies diarrhea, fever and chills. His last bowel movement was yesterday ( soft, brown, non-bloody) and is still passing flatus. CT abdomen shows mildly distended loops of small bowel with air-fluid levels compatible with an ileus, without obstruction. Surgical consult was called to evaluate. Past Medical History small bowel obstruction Past Surgical History intestinal leak repair hip pinning Family History Significant Family History: no pertinent family hx Social History Alcohol Use: none Smoking Status: Never smoker Drug Use: none Exam/Review of Systems Vital Signs Vitals Vital Signs Date Time Temp Pulse Resp B/P Pulse Ox O2 Delivery O2 Flow Rate FiO2 12/17/16 10:07 48 14 125/65 100 Room Air 2.0 Nasal Cannula 12/17/16 03:52 98.9 Exam Constitutional: alert, oriented, well developed, No distress Psych: nl mood/affect Head: atraumatic, normocephalic Eyes: PERRL, nl lids, nl sclera ENMT: mucosa pink and moist, nl nasal mucosa & septum Neck: non-tender, supple Respiratory: clear to auscultation, normal air movement Cardiovascular: nl pulses, regular rate and rhythm Gastrointestinal: bowel sounds (x4 quads), distended (mod), non-tender Genitourinary - Male: nl penis, nl scrotum Musculoskeletal: nl extremities to inspection Extremities: normal pulses Neurological: nl mental status, nl speech, nl strength Skin: nl turgor Results Result Diagram: 12/17/1640912/17/16409 Results 24 hrs Laboratory Tests Test 12/17/16 04:10 12/17/16 09:01 White Blood Count 8.0 # Red Blood Count 5.21 Hemoglobin 13.9 #L Hematocrit 43.4 Mean Corpuscular Volume 83.3 Mean Corpuscular Hemoglobin 26.7 L Mean Corpuscular Hemoglobin Concent 32.0 Red Cell Distribution Width 17.8 H Platelet Count 167 # Mean Platelet Volume 10.2 Neutrophils % 71.3 Lymphocytes % 17.0 Monocytes % 10.3 Eosinophils % 0.6 Basophils % 0.5 Nucleated Red Blood Cells % 0.0 Neutrophils # 5.7 Lymphocytes # 1.4 Monocytes # 0.8 Eosinophils # 0.1 Basophils # 0.0 Nucleated Red Blood Cells # 0.0 Sodium Level 136 Potassium Level 4.2 Chloride Level 102 Carbon Dioxide Level 24 Anion Gap 14 Blood Urea Nitrogen 16 Creatinine 0.86 Glucose Level 114 Calcium Level 8.7 Total Bilirubin 0.3 Direct Bilirubin 0.00 Indirect Bilirubin 0.3 Aspartate Amino Transf (AST/SGOT) 28 Alanine Aminotransferase (ALT/SGPT) 30 Alkaline Phosphatase 91 Total Protein 7.4 Albumin 4.7 Globulin 2.70 Albumin/Globulin Ratio 1.74 Lipase 140 Lactic Acid Level 0.7 Phosphorus Level 2.6 Magnesium Level 2.1 Medications Medications Current Medications Dextrose/Sodium Chloride (D5-1/2ns) 1,000 ml @ 100 mls/hr Q10H IV Last administered on 12/17/16t 09:08; Admin Dose 100 MLS/HR; Start 12/17/16 at 09:00 Magnesium Citrate (Citroma) 300 ml ONCE ONCE PO ; Start 12/17/16 at 10:30; Stop 12/17/16 at 10:31; Status UNV Polyethylene Glycol (Miralax) 17 gm DAILY PO ; Start 12/17/16 at 10:30; Status UNV Senna/Docusate Sodium (Senokot-S) 2 tab DAILY PO ; Start 12/17/16 at 10:30; Status UNV JAN ADDISON [employer] Dec 17, 2016 10:51
[2016-12-17] MEDS ORDERED: MAGNESIUM CITRATE 300 ML BTL PO ONE (11:13)
[2016-12-17 15:00] VITALS: TEMP 98.2
[2016-12-17] MEDS: POLYETHYLENE GLYCOL 17 GM PACKET PO SCH (17:35)
[2016-12-17] MEDS: SENNA/DOCUSATE NA (8.6MG/50MG) TAB PO SCH (17:35)
--- NOTE | 2016-12-17 18:49 | RADRPT ---
PROCEDURE: Chest 1 views. CLINICAL INDICATION: Abdominal pain, bradycardia. Shortness of breath. TECHNIQUE: AP views of the chest was obtained. COMPARISON: None. FINDINGS: The heart is large. Subsegmental atelectasis is noted in the lingula. No consolidations are identifi ed. No pneumothorax is seen. Osseous structures are intact. IMPRESSION: Cardiomegaly . Subsegmental atelectasis in the lingula. RPTAT: AA .Moustapha Hauser MD, MD Date Time Electronically viewed and signed by .Moustapha Hauser MD, MD on 12/17/2016 18:49 .P/
[2016-12-17 20:36] VITALS: BMI 30.6
[2016-12-17 20:41] VITALS: BP 132/67; PULSE 45; RESP 18
[2016-12-17] MEDS ORDERED: OMEP20CA16 PO (21:32)
[2016-12-17] MEDS ORDERED: ONDA4TAB95 PO (21:32)
[2016-12-17] MEDS ORDERED: HYDR-906 PO (21:32)
[2016-12-17 23:00] VITALS: BP 126/63; PULSE 46; RESP 20; Ht 167.6 cm; Wt 82.8 kg
[2016-12-18] VITALS (10 sets, daily range): BP systolic 118–161; BP diastolic 62–78; PULSE 43–57; RESP 16–18
[2016-12-18] MEDS: DEXTROSE 5%-0.45% NACL 1,000 ML IV SCH (05:32)
[2016-12-18] MEDS: POLYETHYLENE GLYCOL 17 GM PACKET PO SCH (08:26)
[2016-12-18] MEDS: SENNA/DOCUSATE NA (8.6MG/50MG) TAB PO SCH (08:26)
--- NOTE | 2016-12-18 09:54 | PN ---
Date/Time of Note Date/Time of Note DATE: 12/18/16 TIME: 09:47 Assessment/Plan Lines/Catheters IV C[facility]ter Type (from [facility]): Saline Lock Pelayo in Place (from Nrs): No Assessment/Plan Chief Complaint/Hosp Course 1. Ileus: 2/2 opiates (takes narcotics intermittently for abdominal pain) , chemistry panel wnl, CT shows: Mildly distended loops of small bowel with air- fluid levels compatible with an ileus; no obstruction; cholelithiasis without cholecystitis, normal appendix; no recent surgeries; +bm/flatus -supportive -pain management with limited narcotics -judicious IV fluids -bowel rest -SBFT today 2. Abdominal pain: 2/2 above; improved -as above 3. Descending and sigmoid diverticulosis: without evidence of diverticulitis -supportive 4. Cholelithiasis without cholecystitis; LFT's wnl -as above -eventual surgical intervention if symptomatic 5. Bradycardia: asymptomatic -supportive 6. Obesity: BMI; 31 -encourage weight loss Patient seen and examined in collaboration with Dr. Benny Mcleod Problems: Subjective 24 Hr Interval Summary feeling well, abdominal pain improved. +flatus/bm non-bloody, brown. No c/o n/v/ d, chills, fevers, cp, palpitations, sob, rash sz. Exam/Review of Systems Vital Signs Vitals Vital Signs Date Time Temp Pulse Resp B/P Pulse Ox O2 Delivery O2 Flow Rate FiO2 12/18/16 08:01 43 12/18/16 07:56 98.6 18 123/67 99 12/17/16 23:00 Room Air 12/17/16 15:00 2.0 Intake and Output 12/17/16 12/17/16 12/18/16 15:00 23:00 07:00 Intake Total 1000 ml Balance 1000 ml Exam Free Text/Dictation Constitutional: alert, oriented, well developed, No distress Psych: nl mood/affect Head: atraumatic, normocephalic Eyes: PERRL, nl lids, nl sclera ENMT: mucosa pink and moist, nl nasal mucosa & septum Neck: non-tender, supple Respiratory: clear to auscultation, normal air movement Cardiovascular: nl pulses, regular rate and rhythm Gastrointestinal: bowel sounds (x4 quads), non, distended, non-tender Genitourinary - Male: nl penis, nl scrotum Musculoskeletal: nl extremities to inspection Extremities: normal pulses Neurological: nl mental status, nl speech, nl strength Skin: nl turgor Results Result Diagram: 12/17/1640912/17/16 0410 JAN ADDISON NP Dec 18, 2016 09:54
[2016-12-18] MEDS ORDERED: DIATR MEGLU/DIATRIZOATE SODIUM 120 ML BTL ONE (11:52)
--- NOTE | 2016-12-18 14:14 | RADRPT ---
PROCEDURE: Small bowel follow-through. CLINICAL INDICATION: Abdomen pain. TECHNIQUE: Water-soluble contrast was administered orally and several spot and overhead radiograph s of the abdomen were obtained. COMPARISON: CT scan of the abdomen and pelvis dated 12/17/2016 which demonstrated mildly dilated l oops of small bowel with air-fluid levels. FINDINGS: On the preliminary radiograph, a left hip total arthroplasty is noted. Gas containing nondilated sm all bowel is present in the left side of the abdomen and pelvis. There is no small bowel displacement or mass. The small bowel folds are normal. There is no evidence of obstruction. Transit time is normal with contrast in the colon at 55 minutes. There is no dilated small bowel and there is no evidence of obstruction. IMPRESSION: 1. Left hip total arthroplasty. 2. No evidence of small bowel obstruction. RPTAT: QQ .Rober Nicholson MD, Date Time Electronically viewed and signed by .Rober Nicholson MD, on 12/18/2016 14:13 .R/
--- NOTE | 2016-12-18 14:39 | DS ---
Date/Time of Note Date/Time of Note DATE: 12/18/16 TIME: 14:30 Discharge Summary Admission/Discharge Info Admit Date/Time Dec 17, 2016 at 06:52 Discharge Date/Time Discharge Diagnosis 1. Ileus from narcotics, resolved, negative SBFT 2. Incidental finding of cholelithiasis without cholecystitis: Stable 3. Asymptomatic bradycardia, follow up with PCP 4. Diverticulosis without Diverticulitis Patient Condition: Stable Hx of Present Illness This 66-year-old male who presented to the emergency room with abdominal pain nausea vomiting. about one days duration associated with pain is located in the mid abdomen. Chest and the patient does have intermittent episodes of constipation but at this time did have a bowel movement fairly recently. Imaging is showing ileus. Has had a history of hip surgery and abdominal surgery in the past and has been on opiate therapy on and off. He denies fever , denies chest pain, denies shortness of breath. He had an episode of bradycardia to the 30s and 40s, but this was asymptomatic. He had no dizziness , no fainting spells. Patient however did have a good volume of vomiting per his report. Hospital Course CT scan reported as mildly distended loops of small bowel with air-fluid levels compatible with an ileus. There is no bowel obstruction. Descending and sigmoid diverticulosis without evidence of diverticulitis. Moderate retained stool within the colon. Bilateral small inguinal hernias containing fat. Cholelithiasis. Mild bibasilar atelectasis. To rule out small bowel obstruction, patient had small bowel follow through that is negative for small bowel obstruction. Patient's symptoms improved without nausea, vomiting or abdominal pain today. HR down to 40s. I send TSH that I will follow. Home Meds Reported Medications Ondansetron Hcl* (Ondansetron Hcl*) 4 Mg Tablet, 4 MG PO DAILY Y for NAUSEA AND OR VOMITING, TAB 12/17/16 Omeprazole* (Omeprazole*) 20 Mg Capsule., 20 MG PO DAILY, #30 CAP 12/17/16 Hydrocodone/Acetaminophen ([place] 5-325 Tablet) 1 Each Tablet, 1 EACH PO DAILY Y for PAIN, TAB 12/17/16 Discontinued Reported Medications Isoniazid* (Isoniazid*) 300 Mg Tablet, 300 MG PO DAILY, TAB 08/04/16 Discontinued Scripts Ondansetron Hcl* (Zofran*) 4 Mg Tab, 4 MG PO Q6H Y for NAUSEA AND OR VOMITING, # 10 TAB Prov:MICHELLE ADHIKARI. 08/06/16 Follow-up Plan PCP in one week Primary Care Provider Not On Staff Doctor SHRUTHI COOK MD Dec 18, 2016 14:39
[2016-12-18 14:51] LABS: ADD SCAN DIFF NO
[2016-12-18 14:52] LABS: BASOPHILS % 0.3 % (0.0-2.0); EOSINOPHILS # 0.1 10^3/ul (0.0-0.5); EOSINOPHILS % 1.4 % (0.0-7.0); HEMATOCRIT 47.4 % (42.0-52.0); HEMOGLOBIN 14.7 g/dl (14.0-18.0); LYMPHOCYTES # 1.1 10^3/ul (0.8-2.9); LYMPHOCYTES % 19.6 % (15.0-51.0); MEAN CORPUSCULAR HEMOGLOBIN 26.5 pg (29.0-33.0); MEAN CORPUSCULAR VOLUME 85.4 fl (82.0-101.0); MEAN PLATELET VOLUME 9.7 fl (7.4-10.4); MONOCYTE # 0.6 10^3/ul (0.3-0.9); MONOCYTES % 10.3 % (0.0-11.0); NEUTROPHILS % 68.1 % (39.0-77.0); PLATELET COUNT 171 10^3/UL (140-415); RED BLOOD COUNT 5.55 10^6/ul (4.70-6.10); RED CELL DISTRIBUTION WIDTH 18.2 % (11.5-14.5); WHITE BLOOD COUNT 5.8 10^3/ul (4.8-10.8)
[2016-12-18 15:30] LABS: ALBUMIN 4.8 g/dl (3.3-4.9); ALBUMIN/GLOBULIN RATIO 1.65; BILIRUBIN,INDIRECT 0.3 mg/dl (0-1.1); BILIRUBIN,TOTAL 0.3 mg/dl (0.2-1.3); CALCIUM 9.4 mg/dl (8.4-10.2); CREATININE 0.86 mg/dl (0.61-1.24); MAGNESIUM 2.5 mg/dl (1.7-2.5); TOTAL PROTEIN 7.7 g/dl (6.1-8.1)
--- NOTE | 2016-12-21 09:01 | RADRPT ---
Vent Rate: 46 bpm RR Interval: 0 msec SC Interval: 156 msec QRS Duration: 88 msec QT Interval: 458 msec QTC Interval: 400 msec P-R-T [place]: 27 - 9 - 27 degrees Marked sinus bradycardia Abnormal ECG Electronically Signed By: Marcus Hartley [id number]
== END 2016-12-18 17:50 | disposition home or self-care (01) | DRG 390 ==
LOC: E/R 03:49 → MS3 06:52 → MS4 19:45
PROVIDERS: ADMIT Family Medicine; ATTEND Family Medicine
DX: K56.7 Ileus, unspecified (principal); R00.1 Bradycardia, unspecified; K80.20 Calculus of gallbladder without cholecystitis without obstruction; K57.90 Diverticulosis of intestine, part unspecified, without perforation or abscess without bleeding; K40.20 Bilateral inguinal hernia, without obstruction or gangrene, not specified as recurrent; I51.7 Cardiomegaly; E66.9 Obesity, unspecified; Z68.29 Body mass index [BMI] 29.0-29.9, adult; K59.00 Constipation, unspecified
CPT/HCPCS: 36415; 71010; 74176; 74250; 80053; 83605; 83690; 83735; 84100; 84443; 85025; 93005; 96374; 96375; J2270; J2405; J7030; J7042

== ENCOUNTER 2017-04-21 20:20 | Emergency (ER) | payer MEDICARE, OTHER ==
[~2017-04-21] VITALS: Ht 165.1 cm; Wt 81.0 kg
[~2017-04-21 20:20] MED LIST changes: +HYDR-906 PO; -ISON300T72 PO; +OMEP20CA16 PO; -ONDA-43 PO; +ONDA4TAB95 PO
[2017-04-21 20:45] VITALS: Ht 165.1 cm; Wt 81.0 kg
--- NOTE | 2017-04-21 22:40 | ERD ---
ER Documentation Chief Complaint Chief Complaint Head pain HPI The patient is a 66-year-old male, presenting to the ER because of a mechanical fall around 7:30 PM. He was pulling out the toolbox from the truck and lost balance and fell. He hit her head on the ground, denies syncope, near syncope, neck pain, chest pain, dyspnea, abdominal pain, vomiting, fecal/urinary incontinence, tongue bite. Past medical history: Cholelithiasis Past surgical history: Abdominal surgery 4 years ago, detail is unclear ROS All systems reviewed and are negative except as per history of present illness. Medications Home Meds Reported Medications Ondansetron Hcl* (Ondansetron Hcl*) 4 Mg Tablet, 4 MG PO DAILY Y for NAUSEA AND OR VOMITING, TAB 12/17/16 Omeprazole* (Omeprazole*) 20 Mg Capsule.dr, 20 MG PO DAILY, #30 CAP 12/17/16 Hydrocodone/Acetaminophen ([place] 5-325 Tablet) 1 Each Tablet, 1 EACH PO DAILY Y for PAIN, TAB 12/17/16 Allergies Allergies: Coded Allergies: No Known Allergies (Verified Allergy, Unknown, 12/17/16) PMhx/Soc History of Surgery: Yes Anesthesia Reaction: No Hx Neurological Disorder: No Hx Respiratory Disorders: No Hx Cardiac Disorders: No Hx Psychiatric Problems: No Hx Miscellaneous Medical Probl: No Hx Alcohol Use: Yes Hx Substance Use: No Hx Tobacco Use: No Physical Exam Vitals Vital Signs Date Time Temp Pulse Resp B/P Pulse Ox O2 Delivery O2 Flow Rate FiO2 04/21/17 23:50 58 17 146/69 94 Room Air 04/21/17 20:45 97.9 60 20 168/75 98 Physical Exam Const: No acute distress. Head: Atraumatic.Small nonbleeding 3 cm laceration at the right parietal area. Eyes: Normal Conjunctiva. ENT: Normal External Ears, Nose and Mouth. Neck: Full range of motion. No meningismus. Resp: Clear to auscultation bilaterally. Cardio: Regular rate and rhythm. Abd: Soft, non distended, normal bowel sounds, non tender. Skin: No petechiae or rashes. Back: No midline or flank tenderness. Ext: No cyanosis, or edema. Neur: Awake and alert. No focal deficit Psych: Normal Mood and Affect. Results 24 hrs Current Medications Medications (Trade) Dose Ordered Sig/Karoline Route PRN Reason Start Time Stop Time Status Last Admin Dose Admin Lidocaine/ Epinephrine (Xylocaine 2%/ Epi Mpf(Sdv)) 20 ml ONCE ONCE INJ 04/22/17 00:37 04/22/17 00:38 Cancel Lidocaine/ Epinephrine (Xylocaine 1%/ Epi (Pf)) 30 ml ONCE STAT INJ 04/22/17 00:53 04/22/17 00:54 DC Procedures/[place] [id number] Radiology Main Line: [phone] DIAGNOSTIC IMAGING REPORT Patient: TIA CERNA : 1950 Age: 66 Sex: M MR #: [id number] DOS: 04/21/17 2248 Ordering MD: GERRI VITAL MD Location: E/R Room/Bed: PROCEDURE: Noncontrast CT Head. CLINICAL INDICATION: Trauma. TECHNIQUE: Noncontrast CT of the head was obtained. The administered radiation dose was CTDI vol = 45 mGy, DLP = 810 mGy-cm. One or more of the following dose reduction techniques were used: automated exposure control, adjustment of the mA and/or kV according to patient size and/or use of iterative reconstruction technique. DICOM images are available. COMPARISON: No pertinent prior examinations were submitted for comparison. FINDINGS: The ventricles and cortical sulci are mildly enlarged. There is mild decreased attenuation within the periventricular and subcortical white matter compatible with chronic microvascular changes. There is no acute intracranial hemorrhage or extra-axial fluid collection. There is no mass effect. No midline shift is identified. There is no loss of lynch-white differentiation to suggest acute infarction. The orbits are within normal limits. The paranasal sinuses are well aerated. No destructive osseous lesion is identified. IMPRESSION: No acute findings. Mild diffuse parenchymal volume loss and chronic microvascular changes. RPTAT: HIKT .Mikey Bowman MD, MD Date Time Electronically viewed and signed by .Mikey Bowman MD, MD on 04/22/2017 00:27 .T/ CC: GERRI VITAL MD MEDICAL MAKING DECISION: It was closed with any difficulty with kevin. The differential diagnoses considered include but are not limited to subarachnoid hemorrhage, occult trauma, CVA, meningitis, encephalitis, hypertension, tension, migraine, cluster, narcotic withdrawal, cervical spine disease. Laceration Repair by me: Anesthesia: 1% lidocaine locally Location: R parietal Tendon/Joint/Nerves: No injury Foreign body: None detected after copious irrigation and exploration Technique: Kevin Complexity: No subcutaneous sutures/mucosal repair/ edge excision Post Closure Length: 3 cm Patient's bleeding was easily controlled in the department and there is no indication of anemia. No evidence of compartment syndrome, neurologic injury, vascular injury, open joint, tendon laceration, or foreign body. Patient is appropriate for outpatient follow up. 48 hour wound check. Scar minimization instructions given. Departure Diagnosis: Primary Impression: Laceration of scalp Condition: Good Comments He was advised to return in 2 days for wound check, 10 days for staple removal The patient's blood pressure was elevated (>120/80) but appears stable without evidence of hypertension emergency or urgency. The patient was counseled about the risks of hypertension and urged to pursue outpatient monitoring and therapy within a week with their primary care physician. Disclaimer: Inadvertent spelling and grammatical errors are likely due to EHR/ dictation software use and do not reflect on the overall quality of patient care. Also, please note that the electronic time recorded on this note does not necessarily reflect the actual time of the patient encounter. GERRI VITAL MD Apr 21, 2017 22:40
--- NOTE | 2017-04-22 00:28 | RADRPT ---
PROCEDURE: Noncontrast CT Head. CLINICAL INDICATION: Trauma. TECHNIQUE: Noncontrast CT of the head was obtained. The administered radiation dose was CTDI vol = 45 mGy, DLP = 810 mGy-cm. One or more of the following dose reduction techniques were used: automat ed exposure control, adjustment of the mA and/or kV according to patient size and/or use of iterativ e reconstruction technique. DICOM images are available. COMPARISON: No pertinent prior examinations were submitted for comparison. FINDINGS: The ventricles and cortical sulci are mildly enlarged. There is mild decreased attenuation within t he periventricular and subcortical white matter compatible with chronic microvascular changes. There is no acute intracranial hemorrhage or extra-axial fluid collection. There is no mass effect . No midline shift is identified. There is no loss of lynch-white differentiation to suggest acute in farction. The orbits are within normal limits. The paranasal sinuses are well aerated. No destructive osseous lesion is identified. IMPRESSION: No acute findings. Mild diffuse parenchymal volume loss and chronic microvascular changes. RPTAT: HIKT .Mikey Bowman MD, MD Date Time Electronically viewed and signed by .Mikey Bowman MD, MD on 04/22/2017 00:27 .T/
[2017-04-22] MEDS ORDERED: LIDOCAINE 2%/EPI MPF (SDV) 20 ML VIAL INJ ONE (00:37)
[2017-04-22] MEDS ORDERED: LIDOCAINE 1%/EPI 30 ML INJ INJ STA (00:53)
[2017-04-22 01:48] VITALS: BP 147/70; PULSE 54; RESP 16; TEMP 98
[2017-04-22] MEDS ORDERED: ACETAMINOPHEN 325 MG TAB PO ONE (02:00)
== END 2017-04-22 02:00 | disposition home or self-care (01) ==
LOC: E/R 20:20
DX: S01.01XA Laceration without foreign body of scalp, initial encounter (principal); W18.39XA Other fall on same level, initial encounter; Y92.9 Unspecified place or not applicable
CPT/HCPCS: 70450

== ENCOUNTER 2017-04-24 11:04 | Emergency (ER) | payer MEDICARE, OTHER ==
[~2017-04-24] VITALS: Ht 167.6 cm; Wt 81.3 kg
[~2017-04-24 11:04] MED LIST changes: -OMEP20CA16 PO
[2017-04-24 11:15] VITALS: Ht 167.6 cm; Wt 81.3 kg
--- NOTE | 2017-04-24 11:45 | ERD ---
ER Documentation Chief Complaint Chief Complaint Patient here for a recheck HPI 66-year-old male is 2 days status post a laceration to his occipital scalp. Patient had a brief loss of consciousness after the accident. He had a CT scan at that time which demonstrated no intracranial injury. Since the accident, he reports no wound complications. However, he reports a mild nonspecific headache with dizziness and nausea. He reports no focal weakness numbness or fever. ROS All systems reviewed and are negative except as per history of present illness. Medications Home Meds Reported Medications Ondansetron Hcl* (Ondansetron Hcl*) 4 Mg Tablet, 4 MG PO DAILY Y for NAUSEA AND OR VOMITING, TAB 12/17/16 Hydrocodone/Acetaminophen ([place] 5-325 Tablet) 1 Each Tablet, 1 EACH PO DAILY Y for PAIN, TAB 12/17/16 Discontinued Reported Medications Omeprazole* (Omeprazole*) 20 Mg Capsule.dr, 20 MG PO DAILY, #30 CAP 12/17/16 Allergies Allergies: Coded Allergies: No Known Allergies (Verified Allergy, Unknown, 12/17/16) PMhx/Soc History of Surgery: Yes (LT HIP REPLACEMENT, ABDOMINAL ) Anesthesia Reaction: No Hx Neurological Disorder: No Hx Respiratory Disorders: No Hx Cardiac Disorders: No Hx Psychiatric Problems: No Hx Miscellaneous Medical Probl: Yes (GASTRITIS?, PSORIASIS) Hx Alcohol Use: No Hx Substance Use: No Hx Tobacco Use: No FmHx Noncontributory Physical Exam Vitals Vital Signs Date Time Temp Pulse Resp B/P Pulse Ox O2 Delivery O2 Flow Rate FiO2 04/24/17 11:15 98.3 55 20 138/67 97 Physical Exam General: well developed, well nourished, in no distress. Neuro: Normal speech, gait, balance HEENT: Patient is a well-healed laceration to the occipital scalp with brandi in place. No evidence of infection. Procedures/MDM Patient was taken to a room, seen and examined Medical decision making: This is a 66-year-old male who presents to the emergency department with a laceration. At this time, patient appears to be healing nicely with no evidence of neurologic or wound complications. Departure Diagnosis: Primary Impression: Encounter for wound re-check Condition: Good Patient Instructions: Wound Check, Lac F/U (No Infection) Referrals: KORINA LYNCH (PCP) Additional Instructions: Stiches should be removed in the next 5 days KAN DEAL Apr 24, 2017 11:45
[2017-04-24] MEDS ORDERED: ONDA4TAB8 PO (11:46)
== END 2017-04-24 12:00 | disposition home or self-care (01) ==
LOC: FTE 11:04
DX: Z48.01 Encounter for change or removal of surgical wound dressing (principal)
CPT/HCPCS: 99283

== ENCOUNTER 2017-05-01 09:56 | Emergency (ER) | payer MEDICARE, OTHER ==
[~2017-05-01] VITALS: Ht 165.1 cm; Wt 80.8 kg
[~2017-05-01 09:56] MED LIST changes: +ONDA4TAB8 PO
[2017-05-01 09:59] VITALS: Ht 165.1 cm; Wt 80.8 kg
--- NOTE | 2017-05-01 10:36 | ERD ---
ER Documentation Chief Complaint Chief Complaint suture removal post head HPI 66-year-old male who presents emergency department for staple removal to his scalp that was placed last 04/22/2017 here in the emergency department. Denies headache, dizziness, blurred vision, changes in vision, neck pain, neck stiffness, throat pain, difficulty swallowing, shoulder pain, chest pain, back pain, abdomen, nausea, vomiting, constipation, diarrhea, urinary symptoms, loss of bowel and bladder control, fever, chills, difficulty walking. ROS All systems reviewed and are negative except as per history of present illness. Medications Home Meds Active Scripts Ondansetron Hcl* (Zofran*) 4 Mg Tablet, 4 MG PO Q6H for NAUSEA AND/OR VOMITING, #30 TAB Prov:KAN DEAL 04/24/17 Reported Medications Ondansetron Hcl* (Ondansetron Hcl*) 4 Mg Tablet, 4 MG PO DAILY Y for NAUSEA AND OR VOMITING, TAB 12/17/16 Hydrocodone/Acetaminophen ([place] 5-325 Tablet) 1 Each Tablet, 1 EACH PO DAILY Y for PAIN, TAB 12/17/16 Allergies Allergies: Coded Allergies: No Known Allergies (Verified Allergy, Unknown, 05/01/17) PMhx/Soc History of Surgery: Yes (LT HIP REPLACEMENT, ABDOMINAL ) Anesthesia Reaction: No Hx Neurological Disorder: No Hx Respiratory Disorders: No Hx Cardiac Disorders: No Hx Psychiatric Problems: No Hx Miscellaneous Medical Probl: Yes (GASTRITIS?, PSORIASIS) Hx Alcohol Use: No Hx Substance Use: No Hx Tobacco Use: No Physical Exam Vitals Vital Signs Date Time Temp Pulse Resp B/P Pulse Ox O2 Delivery O2 Flow Rate FiO2 05/01/17 09:59 97.4 59 18 134/65 97 Physical Exam Const: Well-appearing. No acute distress. Head: Atraumatic. 3 cm laceration to right parietal area with 4 brandi. No hematoma. No discharge. Site is healed. No bleeding. No dehiscence. Eyes: Normal Conjunctiva. PERRLA. No pain on eye movement. ENT: Normal External Ears, Nose and Mouth. Neck: Full range of motion..~ No meningismus. Resp: Clear to auscultation bilaterally Cardio: Regular rate and rhythm, no murmurs Abd: Soft, non tender, non distended. Normal bowel sounds Skin: No petechiae or rashes Back: No midline or flank tenderness Ext: No cyanosis, or edema Neur: Awake and alert. Romberg test is negative. No neurological deficits. Psych: Normal Mood and Affect Procedures/MDM 66-year-old male who presents emergency department for staple removal to his scalp that was placed last Wednesday here in the emergency department. Procedure: Removal of 5 brandi to the right parietal scalp. Reevaluation. Right parietal scalp site is healed. No hematoma. No dehiscence. No discharge. No bleeding. No neurological deficits. Ambulatory with steady gait. Differential diagnosis: I have low suspicion for dehiscence, bleeding, infection given physical exam and reevaluation after staple removal revealed no signs and symptoms of complications, infection, neurological deficits. Final diagnosis: Encounter for removal of brandi. Follow-up with PCP in the next 24-48 hours. Come back here in the emergency department for any new symptoms or any worsening symptoms. All questions and concerns are answered. Patient verbalized understanding and agreed with the plan of care. Hemodynamically stable on discharge. Departure Diagnosis: Primary Impression: Encounter for removal of brandi Condition: Stable Additional Instructions: Follow-up up with PCP in the next 24-48 hours. Come back here in the emergency department for any new symptoms or any worsening of symptoms. DANIELA ESTES May 01, 2017 10:36
== END 2017-05-01 10:55 | disposition home or self-care (01) ==
LOC: FTE 09:56
DX: Z48.02 Encounter for removal of sutures (principal); Z96.642 Presence of left artificial hip joint
CPT/HCPCS: 99281

== ENCOUNTER 2017-08-22 05:12 | Inpatient (IN) | END 2017-08-24 11:50 | disposition home or self-care (01) | DRG 328 ==

== ENCOUNTER 2017-09-21 18:22 | Inpatient (IN) | END 2017-09-23 18:43 | disposition home or self-care (01) | DRG 390 ==

== ENCOUNTER 2017-12-23 17:21 | Emergency (ER) | END 2017-12-23 21:36 | disposition left against medical advice (07) ==

== ENCOUNTER 2018-07-20 08:33 | Inpatient (IN) | payer MEDICARE, OTHER ==
[~2018-07-20] VITALS: Ht 170.2 cm; Wt 75.9 kg
[~2018-07-20 08:33] MED LIST changes: +DOCU-230 PO; -HYDR-906 PO; +MELO15TA30 PO; +MET25 PO; +OMEG1CAP90 PO; +OMEP20CA16 PO; -ONDA4TAB8 PO; -ONDA4TAB95 PO; +ZOF8 PO
[2018-07-20] MEDS ORDERED: morphine 4 MG/ML VIAL IV STA (08:51)
[2018-07-20] MEDS ORDERED: ONDANSETRON 4 MG INJ IV STA (08:51)
[2018-07-20] MEDS ORDERED: SOD CHLORIDE 0.9% 1,000 ML IV STA (08:51)
[2018-07-20] MEDS ORDERED: ONDANSETRON 4 MG INJ IV PRN (09:30)
[2018-07-20] MEDS ORDERED: ACETAMINOPHEN 325 MG TAB PO PRN (09:30)
--- NOTE | 2018-07-20 10:43 | ERD ---
ER Documentation Chief Complaint Chief Complaint UPPER MIDDLE ABD PAIN WITH NAUSEA AND VOMITING HPI Patient is a 67-year-old male with small bowel obstruction who presents with abdominal pain. The patient was just discharged for small bowel obstruction on July 17. He says "it feels like the same situation as last time". His pain started last night at 10 PM. He is vomiting. His last bowel movement was last night. Upon review of old medical records this is the patient's 11th visit to the ER since 2016. He does not remember the name of his primary doctor. ROS All systems reviewed and are negative except as per history of present illness. Medications Home Meds Reported Medications Methotrexate* (Methotrexate*) 2.5 Mg Tab, 20 MG PO Q7D, TAB 07/14/18 Ondansetron Hcl* (Zofran*) 8 Mg Tab, 8 MG PO Q8, TAB 07/14/18 Docusate Sodium* (Stool Softener*) 100 Mg Capsule, 100 MG PO TID, CAP 07/14/18 [place]-3 Fatty Acids/Fish Oil ([place] 3 1,000 mg Softgel) 1 Each Capsule, 1 EACH PO BID, CAP 07/14/18 Meloxicam* (Mobic*) 15 Mg Tablet, 15 MG PO DAILY, #30 TAB 07/14/18 Omeprazole* (Omeprazole*) 20 Mg Capsule.dr, 20 MG PO DAILY, #30 CAP 07/14/18 Discontinued Reported Medications Metformin Hcl* (Metformin Hcl*) 1,000 Mg Tablet, 1000 MG PO WITH BREAKFAST DINNE, #60 TAB 07/14/18 Omeprazole* (Omeprazole*) 20 Mg Capsule.dr, 20 MG PO DAILY, #30 CAP 09/21/17 Hydrocodone/Acetaminophen ([place] 5-325 Tablet) 1 Each Tablet, 1 EACH PO BID PRN for PAIN, TAB 09/21/17 Allergies Allergies: Coded Allergies: No Known Allergies (Verified Allergy, Unknown, 07/20/18) PMhx/Soc History of Surgery: Yes (hip surgery) Anesthesia Reaction: No Hx Neurological Disorder: No Hx Respiratory Disorders: Yes (asthma) Hx Cardiac Disorders: No Hx Psychiatric Problems: No Hx Miscellaneous Medical Probl: No Hx Alcohol Use: Yes (social) Hx Substance Use: No Hx Tobacco Use: No Smoking Status: Never smoker FmHx Family History: No diabetes Physical Exam Vitals Vital Signs Date Temp Pulse Resp B/P (MAP) Pulse Ox O2 O2 Flow FiO2 Time Delivery Rate 07/20/18 98.7 62 17 144/81 99 08:55 (102) Physical Exam Const: No acute distress Head: Atraumatic Eyes: Normal Conjunctiva ENT: Normal External Ears, Nose and Mouth. Neck: Full range of motion. No meningismus. Resp: Clear to auscultation bilaterally Cardio: Regular rate and rhythm, no murmurs Abd: Diffuse tenderness to palpation without rebound or guarding Skin: No petechiae or rashes Back: No midline or flank tenderness Ext: No cyanosis, or edema Neur: Awake and alert Psych: Normal Mood and Affect Result Diagram: 07/20/1892107/20/18921 Results 24 hrs Laboratory Tests Test 07/20/18 09:22 White Blood Count 8.5 10^3/ul Red Blood Count 4.45 10^6/ul Hemoglobin 11.6 g/dl Hematocrit 37.6 % Mean Corpuscular Volume 84.5 fl Mean Corpuscular Hemoglobin 26.1 pg Mean Corpuscular Hemoglobin Concent 30.9 g/dl Red Cell Distribution Width 17.4 % Platelet Count 187 10^3/UL Mean Platelet Volume 9.7 fl Immature Granulocytes % 0.400 % Neutrophils % 73.9 % Lymphocytes % 11.5 % Monocytes % 13.1 % Eosinophils % 0.7 % Basophils % 0.4 % Nucleated Red Blood Cells % 0.0 /100WBC Immature Granulocytes # 0.030 10^3/ul Neutrophils # 6.3 10^3/ul Lymphocytes # 1.0 10^3/ul Monocytes # 1.1 10^3/ul Eosinophils # 0.1 10^3/ul Basophils # 0.0 10^3/ul Nucleated Red Blood Cells # 0.0 10^3/ul Prothrombin Time 12.8 Sec Prothrombin Time Ratio 1.0 INR International Normalized Ratio 0.95 Activated Partial Thromboplast Time 29.5 Sec Sodium Level 139 mmol/L Potassium Level 3.7 mmol/L Chloride Level 101 mmol/L Carbon Dioxide Level 27 mmol/L Anion Gap 11 Blood Urea Nitrogen 10 mg/dl Creatinine 0.69 mg/dl Est Glomerular Filtrat Rate mL/min > 60 mL/min Glucose Level 107 mg/dl Calcium Level 8.6 mg/dl Total Bilirubin 0.1 mg/dl Direct Bilirubin 0.00 mg/dl Indirect Bilirubin 0.1 mg/dl Aspartate Amino Transf (AST/SGOT) 25 IU/L Alanine Aminotransferase (ALT/SGPT) 25 IU/L Alkaline Phosphatase 76 IU/L Troponin I < 0.012 ng/ml Total Protein 6.8 g/dl Albumin 3.8 g/dl Globulin 3.00 g/dl Albumin/Globulin Ratio 1.26 Lipase 58 U/L Current Medications Medications Dose Sig/Karoline Start Time Status Last (Trade) Ordered Route PRN Stop Time Admin Dose Reason Admin Sodium 1,000 ml @ Q1H STAT 07/20/18 DC 07/20/18 Chloride 1,000 mls/hr IV 08:51 09:29 07/20/18 09:50 Morphine 4 mg ONCE STAT 07/20/18 DC 07/20/18 Sulfate IV 08:51 09:29 (morphine) 07/20/18 08:52 Ondansetron 4 mg ONCE STAT 07/20/18 DC 07/20/18 HCl (Zofran IV 08:51 09:29 Inj) 07/20/18 08:52 Ondansetron 4 mg BRIDGE ORDER 07/20/18 HCl (Zofran PRN IV 09:30 Inj) NAUSEA/VOMITI 07/21/18 09:29 NG 650 mg ER BRIDGE 07/20/18 Acetaminophen PRN PO 09:30 (Tylenol .MILD PAIN 07/21/18 09:29 Tab) 1-3 OR TEMP Procedures/MDM Patient is a 67-year-old male who presents with abdominal pain. Laboratory studies were done. I held off on imaging studies as I would defer this to the inpatient team as the patient has had multiple imaging studies in the past. I believe the patient likely has abdominal pain with small bowel obstruction which is recurrent. The patient will be admitted to the care of Dr. Garcia from the panel team. At this point I doubt appendicitis, cholecystitis, or pancreatitis. Departure Diagnosis: Primary Impression: SBO (small bowel obstruction) Additional Impression: Abdominal pain Abdominal location: generalized Qualified Codes: R10.84 - Generalized abdominal pain Condition: ALIZE Valdivia MD Jul 20, 2018 10:43
[2018-07-20] MEDS ORDERED: IOHEXOL 14.3 MG(I)/ML (ADULT) BTL PO ONE (11:00)
--- NOTE | 2018-07-20 11:03 | HP ---
Date/Time of Note Date/Time of Note DATE: 07/20/18 TIME: 10:51 Assessment/Plan VTE Prophylaxis Pharmacological prophylaxis: heparin Lines/Catheters IV Catheter Type (from Nrs): Saline Lock Assessment/Plan Hospital Course 67 yo male with recurrent SOB, chronic abdominal pain, recent episode of choledocholithiasis for which he received biliary stent via ERCP presents again with abdominal pain - Suspect the same pathology of recurrent SBO, however will need CT to evaluate - For now will continue IVF and pain control medications - Unlikely a complication of biliary stent given normal LFTs, but will be seen on CT - Further management plan pending CT Result Diagram: 07/20/1892107/20/18921 Results 24hrs Laboratory Tests Test 07/20/18 09:22 White Blood Count 8.5 Red Blood Count 4.45 L Hemoglobin 11.6 L Hematocrit 37.6 L Mean Corpuscular Volume 84.5 Mean Corpuscular Hemoglobin 26.1 L Mean Corpuscular Hemoglobin Concent 30.9 L Red Cell Distribution Width 17.4 H Platelet Count 187 Mean Platelet Volume 9.7 Immature Granulocytes % 0.400 Neutrophils % 73.9 Lymphocytes % 11.5 L Monocytes % 13.1 H Eosinophils % 0.7 Basophils % 0.4 Nucleated Red Blood Cells % 0.0 Immature Granulocytes # 0.030 Neutrophils # 6.3 Lymphocytes # 1.0 Monocytes # 1.1 H Eosinophils # 0.1 Basophils # 0.0 Nucleated Red Blood Cells # 0.0 Prothrombin Time 12.8 Prothrombin Time Ratio 1.0 INR International Normalized Ratio 0.95 Activated Partial Thromboplast Time 29.5 Sodium Level 139 Potassium Level 3.7 Chloride Level 101 Carbon Dioxide Level 27 Anion Gap 11 Blood Urea Nitrogen 10 Creatinine 0.69 Est Glomerular Filtrat Rate mL/min > 60 Glucose Level 107 Calcium Level 8.6 Total Bilirubin 0.1 L Direct Bilirubin 0.00 Indirect Bilirubin 0.1 Aspartate Amino Transf (AST/SGOT) 25 Alanine Aminotransferase (ALT/SGPT) 25 Alkaline Phosphatase 76 Troponin I < 0.012 Total Protein 6.8 Albumin 3.8 Globulin 3.00 Albumin/Globulin Ratio 1.26 Lipase 58 HPI/ROS Admit Date/Time Admit Date/Time Hx of Present Illness 67 yo male with h/o recurrent SBO, cholelithiasis s/p recent ERCP with stent presenting wiht abdominal pain Patient describes 10 years of abdominal pain. He has little insight into previous diagnosis or workup. However per chat review, the patient has been admitted numerous times over the years for SBO which have been treated with NG suction then resolve. Most recently he was admitted a few days ago for this. SBO resolved. He was also found to have choledocholithiasis for which ERCP with biliary stenting was performed. He went home, and continued to have abdominal pain. Presents for evaluation today. Pain is located in epigastrium as well as RUQ. No nausea or vomiting. No diarrhea. No fevers. Not eating because no appetite. Labs, vitals ok. No further workup performed in ED PMH/Family/Social Past Medical History SBO numerous times Cholelithiasis Medications Current Medications Ondansetron HCl (Zofran Inj) 4 mg BRIDGE ORDER PRN IV NAUSEA/VOMITING; Start 07/20/18 at 09:30; Stop 07/21/18 at 09:29 Acetaminophen (Tylenol Tab) 650 mg ER BRIDGE PRN PO .MILD PAIN 1-3 OR TEMP; Start 07/20/18 at 09:30; Stop 07/21/18 at 09:29 Iohexol ((Gastrografin therapeutic equivalent)) Adult Formulation (Ple... GIVE PIROR TO CT ONCE PO ; Start 07/20/18 at 11:00; Stop 07/20/18 at 11:01; Status UNV Coded Allergies: No Known Allergies (Verified Allergy, Unknown, 07/20/18) Past Surgical History Past Surgical Hx: other Family History Significant Family History: no pertinent family hx Social History Alcohol Use: sober Smoking Status: Never smoker Drug Use: none Exam/Review of Systems Vital Signs Vitals Vital Signs Date Temp Pulse Resp B/P (MAP) Pulse Ox O2 O2 Flow FiO2 Time Delivery Rate 07/20/18 98.7 62 17 144/81 99 08:55 (102) Exam Exam AOX3 resting comfortably pleasant appropriate RRR Breathing comfortably CTAB Abdomen with some tenderness in epigastrium and RUQ, no guarding or rebound extremities warm without edema YOHANA CHAUHAN MD Jul 20, 2018 11:03
[2018-07-20] MEDS ORDERED: NACL 0.9% 3 ML SYG IV SCH (11:30)
[2018-07-20 13:00] VITALS: BP 159/72; PULSE 53; RESP 16
[2018-07-20] MEDS: HYDROmorphONE 0.5 MG/0.5 ML SYG IV PRN (13:04)
--- NOTE | 2018-07-20 13:11 | NUR ---
Patient arrived on floor. Patient vital signs stable, no signs of distress, moaning in pain, abdominal pain 8/10, dilaudid 0.5 ng given. per patient pain is decreasing. fluids started. Patient currently NPO. Confirmed with Dr. Garcia oral contrast for CT which he confirmed. CT called and patient started drinking oral contrast. Bed in lowest position, side rails x2, call light in reach and bed alarms on. Will continue with admission questions and skin assessment when pain decreases..
[2018-07-20] MEDS: SOD CHLORIDE 0.45% 1,000 ML IV SCH ×3 (13:20→22:52)
[2018-07-20 14:01] VITALS: Ht 170.2 cm; Wt 75.9 kg
[2018-07-20] MEDS ORDERED: IOHEXOL 300MG/ML 150 ML BTL ONE (16:49)
[2018-07-20] MEDS ORDERED: SOD CHLORIDE 0.9% 100 ML ONE (16:49)
--- NOTE | 2018-07-20 19:40 | QN ---
Documentation Comment night team update: received call from radiologist regarding new CT findings of cholecystitis, contacted Dr. Jose Henriquez for possible surgery, started iv abx, pending surgery consult. CRISS HARRIS Jul 20, 2018 19:40
[2018-07-20] MEDS: PIPER-TAZO 3.375 GM IV (PMX) 100 ML IVPB SCH (20:40)
[2018-07-20 20:52] VITALS: BP 127/60; PULSE 82; RESP 16
[2018-07-20] MEDS: ONDANSETRON 4 MG INJ IV PRN (22:51)
--- NOTE | 2018-07-21 00:38 | CONS ---
Assessment/Plan Assessment/Plan Assessment/Plan (Daily) Upper abdominal pain most likely secondary to acute cholecystitis. No evidence of common bile duct pathology labs are normal. I discussed with patient my assessment of cholelithiasis and quality cystitis and recommendation would be for laparoscopic cholecystectomy. Because of the patient's prior surgery and recent bout of partial SBO there is a chance that extensive adhesions will be encountered and that he may require lysis of adhesions in order to facilitate a laparoscopic removal of the gallbladder. There is also increased risk the patient will have to have an open procedure based on the. Her graph patient is agreeable to proceed with elective OR schedule for tomorrow Consultation Date/Type/Reason Admit Date/Time Date of Consultation: Jul 20, 2018 Type of Consult General surgery consult Reason for Consultation No pain concerning for cholecystitis Requesting Provider: CRISS HARRIS Date/Time of Note DATE: 07/21/18 TIME: 00:33 Hx of Present Illness Patient 67-year-old male who was just discharged from [facility] last week after noting a distal common bile duct stone and underwent ERCP with stent placement. He also was followed for a partial SBO which resolved. There are multiple gallstones in the gallbladder but the time the patient should be ready for discharge and can be followed up for an elective laparoscopic cholecystectomy. Patient states that the last 2 days he is getting significantly worse pain in the right upper quadrant and nausea and presented to the emergency room where he was admitted. Comparing his abdomen by CAT scan on today versus last week he now demonstrates distended gallbladder which is thickening with pericholecystic fluid consistent with acute cholecystitis. Patient states he has had multiple episodes over the past few years different hospitals evaluated but states that he was never told that his gallbladder was for sure the cause of the symptoms and that he should have his gallbladder removed. Past Medical History Home Meds Reported Medications Methotrexate* (Methotrexate*) 2.5 Mg Tab, 20 MG PO Q7D, TAB 07/14/18 Ondansetron Hcl* (Zofran*) 8 Mg Tab, 8 MG PO Q8, TAB 07/14/18 Docusate Sodium* (Stool Softener*) 100 Mg Capsule, 100 MG PO TID, CAP 07/14/18 [place]-3 Fatty Acids/Fish Oil ([place] 3 1,000 mg Softgel) 1 Each Capsule, 1 EACH PO BID, CAP 07/14/18 Meloxicam* (Mobic*) 15 Mg Tablet, 15 MG PO DAILY, #30 TAB 07/14/18 Omeprazole* (Omeprazole*) 20 Mg Capsule.dr, 20 MG PO DAILY, #30 CAP 07/14/18 Discontinued Reported Medications Metformin Hcl* (Metformin Hcl*) 1,000 Mg Tablet, 1000 MG PO WITH BREAKFAST DINNE, #60 TAB 07/14/18 Omeprazole* (Omeprazole*) 20 Mg Capsule.dr, 20 MG PO DAILY, #30 CAP 09/21/17 Hydrocodone/Acetaminophen ([place] 5-325 Tablet) 1 Each Tablet, 1 EACH PO BID PRN for PAIN, TAB 09/21/17 Medications Current Medications Sodium Chloride 1,000 ml @ 125 mls/hr Q8H IV Last administered on 07/20/18at 22:52; Admin Dose 125 MLS/HR; Start 07/20/18 at 11:03 IV Flush (NS 3 ml) 3 ml PER PROTOCOL IV ; Start 07/20/18 at 11:30 Ondansetron HCl (Zofran Inj) 4 mg Q6H PRN IV NAUSEA/VOMITING Last administered on 07/20/18at 22:51; Admin Dose 4 MG; Start 07/20/18 at 11:30 Hydromorphone HCl (Dilaudid) 0.5 mg Q4H PRN IV .SEVERE PAIN 7-10 Last administered on 07/20/18at 13:04; Admin Dose 0.5 MG; Start 07/20/18 at 11:30 Piperacillin Sod/ Tazobactam Sod 100 ml @ 200 mls/hr Q6 IVPB Last administered on 07/20/18at 20:40; Admin Dose 200 MLS/HR; Start 07/20/18 at 20:00 Allergies: Coded Allergies: No Known Allergies (Verified Allergy, Unknown, 07/20/18) Past Surgical History Past Surgical Hx: other (Patient states that he had bowel surgery but is not of the details he does have a upper midline incision) Social History Alcohol Use: sober Smoking Status: Never smoker Drug Use: none Exam/Review of Systems Exam Vitals Vital Signs Date Temp Pulse Resp B/P (MAP) Pulse Ox O2 O2 Flow FiO2 Time Delivery Rate 07/20/18 100.0 82 16 127/60 94 20:52 (82) 07/20/18 Room Air 13:00 Intake and Output 07/20/18 07/20/18 07/21/18 1515:00 23:00 07:00 IntakeIntake Total 500 ml OutputOutput Total 250 ml 750 ml BalanceBalance -250 ml -250 ml Gastrointestinal: tender (Upper quadrant, well-healed upper midline incision) Results Result Diagram: 07/20/1822 07/20/18 0922 Results 24hrs Laboratory Tests Test 07/20/18 09:22 White Blood Count 8.5 Red Blood Count 4.45 L Hemoglobin 11.6 L Hematocrit 37.6 L Mean Corpuscular Volume 84.5 Mean Corpuscular Hemoglobin 26.1 L Mean Corpuscular Hemoglobin Concent 30.9 L Red Cell Distribution Width 17.4 H Platelet Count 187 Mean Platelet Volume 9.7 Immature Granulocytes % 0.400 Neutrophils % 73.9 Lymphocytes % 11.5 L Monocytes % 13.1 H Eosinophils % 0.7 Basophils % 0.4 Nucleated Red Blood Cells % 0.0 Immature Granulocytes # 0.030 Neutrophils # 6.3 Lymphocytes # 1.0 Monocytes # 1.1 H Eosinophils # 0.1 Basophils # 0.0 Nucleated Red Blood Cells # 0.0 Prothrombin Time 12.8 Prothrombin Time Ratio 1.0 INR International Normalized Ratio 0.95 Activated Partial Thromboplast Time 29.5 Sodium Level 139 Potassium Level 3.7 Chloride Level 101 Carbon Dioxide Level 27 Anion Gap 11 Blood Urea Nitrogen 10 Creatinine 0.69 Est Glomerular Filtrat Rate mL/min > 60 Glucose Level 107 Calcium Level 8.6 Total Bilirubin 0.1 L Direct Bilirubin 0.00 Indirect Bilirubin 0.1 Aspartate Amino Transf (AST/SGOT) 25 Alanine Aminotransferase (ALT/SGPT) 25 Alkaline Phosphatase 76 Troponin I < 0.012 Total Protein 6.8 Albumin 3.8 Globulin 3.00 Albumin/Globulin Ratio 1.26 Lipase 58 Medications Medication Current Medications Sodium Chloride 1,000 ml @ 125 mls/hr Q8H IV Last administered on 07/20/18at 22:52; Admin Dose 125 MLS/HR; Start 07/20/18 at 11:03 IV Flush (NS 3 ml) 3 ml PER PROTOCOL IV ; Start 07/20/18 at 11:30 Ondansetron HCl (Zofran Inj) 4 mg Q6H PRN IV NAUSEA/VOMITING Last administered on 07/20/18at 22:51; Admin Dose 4 MG; Start 07/20/18 at 11:30 Hydromorphone HCl (Dilaudid) 0.5 mg Q4H PRN IV .SEVERE PAIN 7-10 Last administered on 07/20/18at 13:04; Admin Dose 0.5 MG; Start 07/20/18 at 11:30 Piperacillin Sod/ Tazobactam Sod 100 ml @ 200 mls/hr Q6 IVPB Last administered on 07/20/18at 20:40; Admin Dose 200 MLS/HR; Start 07/20/18 at 20:00 SAVI HUA MD Jul 21, 2018 00:37
[2018-07-21] MEDS: PIPER-TAZO 3.375 GM IV (PMX) 100 ML IVPB SCH ×4 (01:15→17:53)
[2018-07-21 02:07] VITALS: BP 90/51; PULSE 88; RESP 16
[2018-07-21] MEDS: ACETAMINOPHEN 1000MG/100ML IV 100 ML IVPB PRN ×2 (02:27→14:32)
--- NOTE | 2018-07-21 04:44 | NUR ---
RN Notes: No acute changed through the night. PT experienced on episode of yellow emesis, small. One episode of slightly elevated fever and headache, resolved with tylenol administration. Fall precautions implemented and continued. Will continue to monitor and endorse to next shift.
[2018-07-21 07:30] VITALS: BP 95/52; PULSE 73; RESP 18
[2018-07-21] MEDS: SOD CHLORIDE 0.45% 1,000 ML IV SCH ×2 (10:20→18:33)
--- NOTE | 2018-07-21 12:33 | PN ---
Date/Time of Note Date/Time of Note DATE: 07/21/18 TIME: 12:33 Assessment/Plan VTE Prophylaxis Risk score (from [facility])>0 risk: 2 SCD applied (from [facility]): Yes SCD contraindicated: low risk/ambulating Pharmacological prophylaxis: NA/contraindicated Pharm contraindication: low risk/ambulating Lines/Catheters IV [facility]ter Type (from [facility]): Peripheral IV Urinary Cath still in place: No Assessment/Plan Assessment/Plan 1. Acute cholecystitis 2. possible SBO vs ileus 3. Hypotension 4. SIRS due to Acute cholecystitis Plan: IV abx zosyn to cover for GI and anerobic coverage BP has been running low, s/p 1 liter IVF NS so sfar, will give albumin 25% 100ml Q 8 hr x 3 doses s/p evaluation by general surgery Dr/ alirio Henriquez for OR as per surgery SCD for DVT prophylaxis NPO IV tylenol for fever Result Diagram: 07/21/18 0533 07/21/18 0533 Results 24hrs Laboratory Tests Test 07/21/18 05:33 White Blood Count 17.0 #H Red Blood Count 3.89 L Hemoglobin 10.2 L Hematocrit 32.5 L Mean Corpuscular Volume 83.5 Mean Corpuscular Hemoglobin 26.2 L Mean Corpuscular Hemoglobin Concent 31.4 L Red Cell Distribution Width 17.2 H Platelet Count 166 Mean Platelet Volume 9.6 Immature Granulocytes % 0.600 H Neutrophils % 84.4 H Lymphocytes % 5.9 L Monocytes % 8.8 Eosinophils % 0.1 Basophils % 0.2 Nucleated Red Blood Cells % 0.0 Immature Granulocytes # 0.110 H Neutrophils # 14.4 H Lymphocytes # 1.0 Monocytes # 1.5 H Eosinophils # 0.0 Basophils # 0.0 Nucleated Red Blood Cells # 0.0 Sodium Level 129 L Potassium Level 3.5 Chloride Level 94 L Carbon Dioxide Level 25 Anion Gap 10 Blood Urea Nitrogen 10 Creatinine 0.88 Est Glomerular Filtrat Rate mL/min > 60 Glucose Level 80 Hemoglobin A1c 5.4 Calcium Level 7.4 L Total Bilirubin 0.6 Direct Bilirubin 0.00 Indirect Bilirubin 0.6 Aspartate Amino Transf (AST/SGOT) 29 Alanine Aminotransferase (ALT/SGPT) 24 Alkaline Phosphatase 59 Total Protein 5.8 #L Albumin 3.0 L Globulin 2.80 Albumin/Globulin Ratio 1.07 Subjective 24 Hr Interval Summary Free Text/Dictation pt had alow grade fever , BP dropped to systolic 80s, afebrile, BP stable Exam/Review of Systems Exam Vitals Vital Signs Date Temp Pulse Resp B/P (MAP) Pulse Ox O2 O2 Flow FiO2 Time Delivery Rate 07/21/18 98.2 73 18 95/52 (66) 96 Room Air 07:30 Intake and Output 07/20/18 07/20/18 07/21/18 1515:00 23:00 07:00 IntakeIntake Total 1100 ml 850 ml OutputOutput Total 250 ml 750 ml 600 ml BalanceBalance -250 ml 350 ml 250 ml Constitutional: alert Head: normocephalic Eyes: nl conjunctiva ENMT: nl external ears & nose Neck: supple, non-tender Respiratory: clear to auscultation, diminished breath sounds Cardiovascular: regular rate and rhythm Gastrointestinal: soft, tender (RUQ< BS+) Musculoskeletal: nl extremities to inspection Extremities: normal pulses Neurological: WOOD PANEL INSPECTOR II-XII intact, nl mental status Skin: nl turgor Lymph: nl lymph nodes Results Results 24hrs Laboratory Tests Test 07/21/18 05:33 White Blood Count 17.0 #H Red Blood Count 3.89 L Hemoglobin 10.2 L Hematocrit 32.5 L Mean Corpuscular Volume 83.5 Mean Corpuscular Hemoglobin 26.2 L Mean Corpuscular Hemoglobin Concent 31.4 L Red Cell Distribution Width 17.2 H Platelet Count 166 Mean Platelet Volume 9.6 Immature Granulocytes % 0.600 H Neutrophils % 84.4 H Lymphocytes % 5.9 L Monocytes % 8.8 Eosinophils % 0.1 Basophils % 0.2 Nucleated Red Blood Cells % 0.0 Immature Granulocytes # 0.110 H Neutrophils # 14.4 H Lymphocytes # 1.0 Monocytes # 1.5 H Eosinophils # 0.0 Basophils # 0.0 Nucleated Red Blood Cells # 0.0 Sodium Level 129 L Potassium Level 3.5 Chloride Level 94 L Carbon Dioxide Level 25 Anion Gap 10 Blood Urea Nitrogen 10 Creatinine 0.88 Est Glomerular Filtrat Rate mL/min > 60 Glucose Level 80 Hemoglobin A1c 5.4 Calcium Level 7.4 L Total Bilirubin 0.6 Direct Bilirubin 0.00 Indirect Bilirubin 0.6 Aspartate Amino Transf (AST/SGOT) 29 Alanine Aminotransferase (ALT/SGPT) 24 Alkaline Phosphatase 59 Total Protein 5.8 #L Albumin 3.0 L Globulin 2.80 Albumin/Globulin Ratio 1.07 Medications Medication Current Medications Sodium Chloride 1,000 ml @ 125 mls/hr Q8H IV Last administered on 07/21/18 10:20; Admin Dose 125 MLS/HR; Start 07/20/18 at 11:03 IV Flush (NS 3 ml) 3 ml PER PROTOCOL IV ; Start 07/20/18 at 11:30 Ondansetron HCl (Zofran Inj) 4 mg Q6H PRN IV NAUSEA/VOMITING Last administered on 07/20/18 22:51; Admin Dose 4 MG; Start 07/20/18 at 11:30 Hydromorphone HCl (Dilaudid) 0.5 mg Q4H PRN IV .SEVERE PAIN 7-10 Last administered on 07/20/18 13:04; Admin Dose 0.5 MG; Start 07/20/18 at 11:30 Piperacillin Sod/ Tazobactam Sod 100 ml @ 200 mls/hr Q6 IVPB Last administered on 07/21/18 12:01; Admin Dose 200 MLS/HR; Start 07/20/18 at 20:00 Acetaminophen 100 ml @ 400 mls/hr Q8H PRN IVPB MILD PAIN(1-3) OR TEMP>38C Last administered on 07/21/18 02:27; Admin Dose 400 MLS/HR; Start 07/21/18 at 01:30 GALEN DONNELLY MD Jul 21, 2018 12:33
[2018-07-21 14:19] VITALS: BP 87/54; PULSE 93; RESP 22
[2018-07-21] MEDS ORDERED: SOD CHLORIDE 0.9% 500 ML IV ONE ×2 (15:00→20:00)
--- NOTE | 2018-07-21 16:25 | NUR ---
Patient blood pressure 87/54, HR 94, temperature 100.8 and currently running normal saline at 125 ml/her. Cooling measures started, IV tylenol given and Dr. Mcgrath informed. ordered NS 500 bolus x1. After bolus BP 80/59, HR 97, temp 98.3. aware and ordered albumin x3. Patient is asymptomatic, states he is feeling fine, only complaint that we are not letting him walk around the unit because last time he was here he was allowed to walk around the unit. Informed patient that his blood pressure is low and that he was given a bolus of normal saline to increase his blood pressure and it did not work. Informed patient that it is unsafe for him to be walking around the unit with low blood pressure and MD is aware and does not want you to walk around but to stay in bed or the chair at this time. MD has ordered another medication called Albumin that will help increase your blood pressure. Patient stated okay, he will take the medication and stay sitting in the chair for now. When he is ready to go back to bed he will call for assistance. Will continue to monitor patient. Addendum: 07/21/18 at 1846 by ARMANI QURESHI RN 1800 Albumin received from pharmacy and started. BP at start of albumin 83/51, HR 93. No temperature. Patient states he feels fine. Asymptomatic. Will assess at end of administration.
--- NOTE | 2018-07-21 17:41 | NUR ---
Per Pharmacy, IV tylenol protocol is 24 hours and is going to drop at 130 am. Afterwards, MD will need to reassess and reorder.
[2018-07-21] MEDS: ALBUMIN HUMAN 25% 100 ML IV SCH (18:00)
[2018-07-21 20:00] VITALS: BP 97/52; PULSE 74; RESP 18
[2018-07-21] MEDS ORDERED: SOD CHLORIDE 0.9% 1,000 ML IV ONE (21:30)
--- NOTE | 2018-07-21 21:47 | PREAC ---
Date/Time of Note Date/Time of Note DATE: 07/21/18 TIME: 21:43 Anesthesia Eval and Record Evaluation Time Pre-Procedure Interview DATE: 07/21/18 TIME: 21:43 Age 67 Sex male NPO: 8 hrs Preoperative diagnosis acute cholecystitis, sepsis Planned procedure Lap Cholecystectomy Past Medical History Past Medical History: Includes Cardio: HTN, Dyslipidemia Endo: Diabetes Surgery & Anesthesia Issues No known issue Meds Anticoagulation: No Beta Armaan within 24 hr: No Reason Beta Armaan not given: Pt. not on B-Armaan Reported Medications Methotrexate* (Methotrexate*) 2.5 Mg Tab, 20 MG PO Q7D, TAB 07/14/18 Ondansetron Hcl* (Zofran*) 8 Mg Tab, 8 MG PO Q8, TAB 07/14/18 Docusate Sodium* (Stool Softener*) 100 Mg Capsule, 100 MG PO TID, CAP 07/14/18 [place]-3 Fatty Acids/Fish Oil ([place] 3 1,000 mg Softgel) 1 Each Capsule, 1 EACH PO BID, CAP 07/14/18 Meloxicam* (Mobic*) 15 Mg Tablet, 15 MG PO DAILY, #30 TAB 07/14/18 Omeprazole* (Omeprazole*) 20 Mg Capsule.dr, 20 MG PO DAILY, #30 CAP 07/14/18 Discontinued Reported Medications Metformin Hcl* (Metformin Hcl*) 1,000 Mg Tablet, 1000 MG PO WITH BREAKFAST DINNE, #60 TAB 07/14/18 Omeprazole* (Omeprazole*) 20 Mg Capsule.dr, 20 MG PO DAILY, #30 CAP 18 Hydrocodone/Acetaminophen ([place] 5-325 Tablet) 1 Each Tablet, 1 EACH PO BID PRN for PAIN, TAB 09/21/17 Current Medications IV Flush (NS 3 ml) 3 ml PER PROTOCOL IV ; Start 07/20/18 at 11:30 Ondansetron HCl (Zofran Inj) 4 mg Q6H PRN IV NAUSEA/VOMITING Last administered on 07/20/18at 22:51; Admin Dose 4 MG; Start 07/20/18 at 11:30 Hydromorphone HCl (Dilaudid) 0.5 mg Q4H PRN IV .SEVERE PAIN 7-10 Last administered on 07/20/18at 13:04; Admin Dose 0.5 MG; Start 07/20/18 at 11:30 Acetaminophen 100 ml @ 400 mls/hr Q8H PRN IVPB MILD PAIN(1-3) OR TEMP>38C Last administered on 07/21/18at 14:32; Admin Dose 400 MLS/HR; Start 07/21/18 at 01:30; Stop 07/23/18 at 01:29 Albumin Human 100 ml @ 100 mls/hr Q8H IV Last administered on 07/21/18at 18:00; Admin Dose 100 MLS/HR; Start 07/21/18 at 17:30; Stop 07/22/18 at 10:29 Meropenem/Sodium Chloride 50 ml @ 100 mls/hr Q8 IVPB ; Start 07/21/18 at 22:00 Sodium Chloride 1,000 ml @ 125 mls/hr Q8H IV ; Start 07/21/18 at 22:30 Sodium Chloride 1,000 ml @ 1,000 mls/hr Q1H ONCE IV ; Start 07/21/18 at 21:30; Stop 07/21/18 at 22:29 Meds reviewed: Yes Allergies Coded Allergies: No Known Allergies (Verified Allergy, Unknown, 07/20/18) Allergies Reviewed: Yes Labs/Studies Labs Reviewed: Reviewed by anesthesiologist Result Diagram: 07/21/18 0533 07/21/18 0533 Laboratory Tests 07/21/18 05:33 test: N/A Studies: ECG Pre-procedure Exam Last vitals Vital Signs Date Temp Pulse Resp B/P (MAP) Pulse Ox O2 O2 Flow FiO2 Time Delivery Rate 07/21/18 98.3 15:17 07/21/18 93 22 87/54 (65) 94 Room Air 14:19 Airway: Adequate mouth opening, Adequate thyromental dist Mallampati: Mallampati II Teeth: Normal Lung: Normal Heart: Normal ASA Physical Status ASA physical status: 3 Emergency: E Planned Anesthetic General/MAC: ETT Planned Pain Management Parenteral pain med Pre-operative Attestations Prior to commencing anesthesia and surgery, the patient was re-evaluated, there was verification of: *The patient's identity *The results of appropriate recent lab work and preoperative vital signs *The above evaluation not changing prior to induction *Anesthetic plan, risk benefits, alternative and complications discussed with patient/family; questions answered; patient/family understands, accepts and wishes to proceed. ROSA PRAKASH MD Jul 21, 2018 21:47
[2018-07-21] MEDS: MEROPENEM 1 GM/50ML(PMX) 50 ML IVPB SCH (22:00)
[2018-07-21] MEDS ORDERED: BUPIVACAINE 0.5%/EPI (SDV) 30 ML INJ ONE (22:38)
[2018-07-21] MEDS ORDERED: LIDOCAINE 1% (MPF) 30 ML INJ ONE (22:38)
[2018-07-22] VITALS (20 sets, daily range): BP systolic 86–118; BP diastolic 50–73; PULSE 79–92; RESP 15–21
[2018-07-22] MEDS ORDERED: GLYCOPYRROLATE 0.4 MG INJ ONE
[2018-07-22] MEDS ORDERED: ETOMIDATE 20 MG INJ ONE
[2018-07-22] MEDS ORDERED: morphine 10 MG INJ ONE
[2018-07-22] MEDS ORDERED: ROCURONIUM 50 MG INJ ONE
[2018-07-22] MEDS ORDERED: FENTAnyl 250MCG INJ ONE
[2018-07-22] MEDS ORDERED: NEOSTIGMINE 3 MG/3 ML SYRINGE ONE
[2018-07-22] MEDS ORDERED: LIDOCAINE 2% (SDV) 5 ML INJ ONE
[2018-07-22] MEDS ORDERED: ONDANSETRON 4 MG INJ ONE
[2018-07-22] MEDS ORDERED: MIDAZOLAM 1 MG/ML 2 ML INJ ONE
[2018-07-22] MEDS: ALBUMIN HUMAN 25% 100 ML IV SCH ×3 (01:30→08:20)
--- NOTE | 2018-07-22 01:53 | NUR ---
RECEIVED PATIENT FROM OR VIA BED POST LAPAROSCOPIC CHOLECYSTECTOMY WITH 3 SMALL INCISIONS COVERED WITH DERMA BAND DRY AND INTACT .1 MARCOS TO RIGHT SIDE ABDOMEN SECURED WITH 2X 2 AND TEGADERM .DRESSING TO MARCOS SITE RECEIVED WITH MODERATELY SATURATED WITH. SEROSANGUINEOUS DRAINAGE. PATIENT AROUSABLE .SR BP STABLE.
--- NOTE | 2018-07-22 01:56 | QN ---
Documentation Comment Notified by general surgeon that he noticed the stent is sticking out of the bile duct during surgery, GI physician who put in stent has been reconsulted, Dr. Lira. CRISS HARRIS Jul 22, 2018 01:56
[2018-07-22] MEDS ORDERED: HYDROmorphONE 1 MG/5 ML IV SYRINGE IV ONE (01:58)
--- NOTE | 2018-07-22 01:58 | PAC ---
Date/Time of Note Date/Time of Note DATE: 07/22/18 TIME: 01:58 Post-Anesthesia Notes Post-Anesthesia Note Last documented vital signs Vital Signs Date Temp Pulse Resp B/P (MAP) Pulse Ox O2 O2 Flow FiO2 Time Delivery Rate 07/21/18 98.8 74 18 97/52 (67) 96 20:00 07/21/18 Room Air 14:19 Activity: WNL Respiratory function: WNL Cardiovascular function: WNL Mental status: Baseline Pain reasonably controlled: Yes Hydration appropriate: Yes Nausea/Vomiting absent: Yes Comments BP:125,67, P:88, Spo2:100%, T:99,2 ROSA PRAKASH MD Jul 22, 2018 01:58
[2018-07-22] MEDS ORDERED: FENTAnyl 50 MCG/ML VIAL IV PRN (02:00)
[2018-07-22] MEDS ORDERED: MEPERIDINE 25 MG INJ IV PRN (02:00)
[2018-07-22] MEDS ORDERED: DIPHENHYDRAMINE 50 MG INJ IV PRN (02:00)
[2018-07-22] MEDS ORDERED: EPHEDrine SULFATE 50 MG/5 ML SYG IV PRN (02:00)
[2018-07-22] MEDS ORDERED: HYDROmorphONE 1 MG/5 ML IV SYRINGE IV PRN ×2 (02:00)
[2018-07-22] MEDS ORDERED: METOCLOPRAMIDE 10 MG INJ IV PRN (02:00)
[2018-07-22] MEDS ORDERED: ONDANSETRON 4 MG INJ IV PRN (02:00)
--- NOTE | 2018-07-22 02:11 | NUR ---
C/O PAIN 5/10 .DILAUDID 0.4MG IV GIVEN.
[2018-07-22] MEDS ORDERED: D5W-0.45 NACL + KCL 20 MEQ 1,000 ML IV SCH (02:16)
--- NOTE | 2018-07-22 02:16 | OPR ---
Date/Time of Note Date/Time of Note DATE: 07/22/18 TIME: 02:03 Operative Report Free Text/Dictation Operative report Procedure Date: Jul 22, 2018 Preoperative Diagnosis Cholecystitis cholelithiasis status post choledocholithiasis and ERCP with stent placement Postoperative Diagnosis Severe gangrenous cholecystitis perforation of biliary stent noted, intra- abdominal adhesions Operation/Procedure Performed Laparoscopic cholecystectomy, drain placement lysis of adhesions Surgeon Jose Henriquez MD see signature line Applications Intern None Anesthesia Type: general Anesthesiologist: ROSA PRAKASH MD Estimated Blood Loss: 100 - 150 ml's Transfusion none Specimen Gallbladder and content Grafts/Implants Tubes/Drains 19 Filipino Jong Complications none Disposition: PACU Indications Patient presented to the emergency room just 2 days status post discharge at time when he had ERCP and stent placement for cholelithiasis and choledocholithiasis. Patient had multiple evaluations in hospitals over the last year patient was noted to have elevated white blood cell count is consistent with sepsis consultation was requested I saw the patient and advised that he undergo laparoscopy with laparoscopic cholecystectomy because of prior upper midline incision in the from laparotomy in the past anticipated possibility of intra-abdominal adhesions which would require lysis of adhesions. Procedure Description Patient was brought to the operating room placed in supine position general anesthesia administered with endotracheal intubation patient was prepped and draped in standard sterile fashion orogastric tube inserted by anesthesia timeout was completed. Because of prior laparotomy and upper midline incision was decided to place a left lateral trocar first for possible need for lysis of adhesions the varies needle was placed in the left upper quadrant Santiago's point insufflation delivered to maintain pneumoperitoneum at 15 mmHg throughout the procedure left lateral 5 mm stab incision was made and a 5 mm trocar inserted with a 35 Casiano laparoscope the Veress needle was removed there is some adhesions along the anterior abdominal wall in the upper abdomen and also incisional hernia noted just above the umbilicus and in the upper midline. Adhesions were taken down carefully with monopolar scissors with minimal use of cautery. 2 right lateral 5 mm trochars and a supraumbilical 12 mm trocar were inserted next in an infant and a subxiphoid 5 mm trocar patient was placed in slight reverse Trendelenburg right side up position the gallbladder was noted was markedly distended with a omentum densely adherent to the gallbladder by blunt dissection with suction irrigation was able to be peeled down because of the distention the gallbladder it was necessary to decompress the gallbladder to facilitate retraction. This was done with hook cautery and then suction irrigation was used to decompress the gallbladder. Gallbladder was there was marked amount of inflammation with fibrinous exudate throughout and fluid along the right gutter which was aspirated and sent for culture aerobes anaerobes and fungal. There was marked edema and gangrenous necrotic tissue along the body neck of the gallbladder and retracted the gallbladder by the body of the gallbladder there was a tear in the gallbladder which was quickly identified the intraluminal content of the gallbladder there are multiple large gallstones which were extracted and some mucoid-like material was noted and aspirated. The Navas's pouch was then elevated because of the marked inflammation was felt safest to do a top down technique and so the fundus of the gallbladder was grasped and hook cautery was used to begin from top down and developed a plane between the liver capsule and the gallbladder there was a marked amount of oozing because of the inflammatory process small bleeders controlled with monopolar cautery and a perforated vessels controlled with hemoclips. On elevating the Navas's pouch I then noted noticed that the biliary stent was clearly visible was unclear if this was the proximal or distal portion of the stent. However this was far away from our dissection as I had not yet dissected by the neck of the gallbladder continued dissection along the neck of the gallbladder the cystic duct was identified and clipped and the proximal the neck of the gallbladder was identified and quite thickened and rather than try to dissect more distally, in order to operate safely and Level Green 35mm Endo LOUIE was then brought to the field and then used to staple across the neck of the gallbladder with with good hemostasis the gallbladder was now free. The gallbladder was placed off to the side has some bleeding along the liver capsule was controlled with monopolar cautery a specimen bag was then inserted through the epigastric port which had been switched to a 12 to accommodate this stapler. The gallbladder placed in this gallbladder was filled the Endo bag almost completely because of the large size of the gallbladder incision of the epigastric wound had to be enlarged and to approximately 3-4 cm. Gallbladder was then removed the trocar reinserted pneumoperitoneum was maintained by placing towel clips on the skin. We next placed a 19 Filipino Jong drain at the in the hepatic fossa and brought it out through the right lateral trocar. 5 cc of FloSeal was then used along the liver The liver gallbladder fossa for hemostasis final inspection there is no bleeding all acutely fluid grossly evident was aspirated. All trochars were then removed to gauze sponges which had been placed and were removed and counts were made sure that all gauze were accounted for. The fascia of the subxiphoid incision was closed with running 0 Vicryl in interrupted 0 Ethibond and all skin incisions closed with 4-0 Monocryl and Dermabond patient was explained the operative brought recovery in stable condition. JOSE HENRIQUEZ MD Jul 22, 2018 02:15
[2018-07-22] MEDS ORDERED: HYDROmorphONE 0.5 MG/0.5 ML SYG IV PRN (02:30)
[2018-07-22] MEDS ORDERED: ACETAMINOPHEN 325 MG TAB PO PRN (02:30)
--- NOTE | 2018-07-22 02:45 | NUR ---
SLEEPING APPEARS COMFORTABLE .
--- NOTE | 2018-07-22 03:06 | NUR ---
FULLY AWAKE DENIES PAIN.
--- NOTE | 2018-07-22 03:22 | NUR ---
TRANSFERRED TO [facility] IN STABLE CONDITION .MARCOS INTACT .INCISIONS DRY AND INTACT .NO SIGNS OF BLEEDING .REPORT GIVEN TO CRISS VARGAS. Addendum: 07/22/18 at 0325 by JAREK CARLISLE RN REPORT GIVEN TO DANIEL. VARGAS
[2018-07-22] MEDS: HYDROmorphONE 0.5 MG/0.5 ML SYG IV PRN ×3 (03:47→18:39)
[2018-07-22] MEDS: ONDANSETRON 4 MG INJ IV PRN ×3 (03:48→18:39)
[2018-07-22] MEDS: SOD CHLORIDE 0.9% 1,000 ML IV SCH ×4 (04:02→22:37)
--- NOTE | 2018-07-22 05:58 | NUR ---
RN Note: Pt left floor to OR at around 2135 07/21/18. Pt in stable condition, no s/s of acute distress noted, pt AAOx4, agreeable to the surgery. Received report from Tamir from PCU at arond 0250. Pt arrived back on the floor around 0300 07/22. Pt vital signs were WNL. Pt monitored, would desaturate when asleep. Pt aroused and instructed to breath through nose and oxygen saturation would resolve. Monitored pts oxygen saturation closely, head of bed was raised. Oxygen saturation has remained WNL. Will endorse to next shift for continuity of care.
[2018-07-22] MEDS ORDERED: PIPER-TAZO 3.375 GM IV (PMX) 100 ML IVPB SCH (06:00)
[2018-07-22] MEDS: MEROPENEM 1 GM/50ML(PMX) 50 ML IVPB SCH ×3 (06:50→21:43)
[2018-07-22] MEDS: FAMOTIDINE 20 MG INJ IV SCH ×2 (08:18→20:10)
--- NOTE | 2018-07-22 11:17 | CONS ---
DATE OF ADMISSION: 07/20/2018 DATE OF CONSULTATION: 07/22/2018 TYPE OF CONSULTATION: Nephrology. REASON FOR CONSULTATION: Hyponatremia. PHYSICIAN REQUESTING CONSULT: Criss Wilson MD HISTORY OF PRESENT ILLNESS: This is a 67-year-old male with a past medical history of recurrent SBO, history of cholelithiasis, status post recent ERCP who presented to [facility] wit h abdominal pain. The patient was most recently admitted to [facility] for SBO, was conservatively managed and was discharged. The patient returns back with similar symptoms. He was subsequently admitted to med/surg and was seen by general surgery and was diagnosed with acute cholecystitis and underwent a laparoscopic cholecystectomy with noted necrotic gallbladder and gangrenous cholecystitis. The patie nt following surgery was receiving IV hydration. In terms of the patient's sodium history, on admission, the patient has sodium 139 which was decrease d to 128 in the course of 24 hours. The patient's sodium levels have increased again to 134 mg per l iter. During this time, the patient had marginal urinary output. The patient is in pain but says it is manageable. PAST MEDICAL HISTORY: As stated above, history of chronic pain, history of SBO, asthma. PAST SURGICAL HISTORY: Hip surgery. SOCIAL HISTORY: Positive alcohol use. No tobacco use. FAMILY HISTORY: No family history of kidney disease. MEDICATIONS: The patient's medication reviewed. REVIEW OF SYSTEMS: A 14-point review of systems conducted. Pertinent positives stated in HPI, other llanos negative. PHYSICAL EXAMINATION: VITAL SIGNS: Blood pressure is 194, respiration 18, pulse 81, 98.3. HEENT: Head is normocephalic. NECK: Supple. HEART: Regular rate. LUNGS: Show diminished breath sounds at the base. ABDOMEN: Soft, positive tender to palpation. EXTREMITIES: Negative for clubbing, cyanosis, no edema. DERMATOLOGIC: No rashes. MUSCULOSKELETAL: No joint effusion. NEUROLOGIC: No focal deficits. LABORATORY DATA: Shows sodium 134, BUN 14, creatinine 1.03, calcium 7.2. White count 16.4, hemoglob in 8.5, platelet count is 170. INR was reviewed. Cultures have been negative. ASSESSMENT AND PLAN: This is a 67-year-old male who presents with: 1. Acute hyponatremia. Etiology may be multifactorial secondary to hemodynamics, volume depletion, possible transient syndrome of antidiuretic hormone secretion due to pain. Plan is for a full evalua tion. Will check urine sodium, urine osmolarity, check TSH and cortisol level. Check a uric acid le coral. The patient's sodium levels are improving. IV fluids will continue. Monitor serial sodium lev els closely. 2. Acute cholecystitis. The patient is status post laparoscopic cholecystectomy for gangrenous gall bladder. Continue current medical management. Continue IV hydration. Continue antibiotic therapy, monitor closely. 3. Possible SBO. The patient is status post laparoscopic surgery with removal of Continue to monito r. 4. Anemia. Continue to monitor hemoglobin and hematocrit levels. 5. Systemic inflammatory response syndrome, sepsis. Continue current antibiotic regimen. 6. Chronic pain syndrome. Continue current pain regimen. Thank you, Dr. Wilson, for this interesting consult. It will be a pleasure to follow patient with you t hroughout the hospital course. Dictated By: SOLOMON OBRIEN DO NR/NTS Conf#: [id number] DID#: [id number] CC: CRISS WILSON MD; YOHANA CHAUHAN MD;*EndCC*
--- NOTE | 2018-07-22 13:34 | PN ---
Date/Time of Note Date/Time of Note DATE: 07/22/18 TIME: 13:31 Assessment/Plan VTE Prophylaxis Risk score (from Ns)>0 risk: 6 SCD applied (from Ns): Yes Pharmacological prophylaxis: heparin Lines/Catheters IV [facility]ter Type (from [facility]): Peripheral IV Urinary Cath still in place: No Assessment/Plan Hospital Course 67 yo male with recurrent SOB, chronic abdominal pain, recent episode of choledocholithiasis for which he received biliary stent via ERCP presents again with abdominal pain. Found to have severe cholecystitis with necrosis now s/p cholecystectomy. Intraoperatively also seen to have extrusion of biliary stent for which he is now undergoing workup - Continue merrem for now - Awiat MRCP and HIDA scan per Dr Lira to evaluate stent - Continue IVF - Pain control - NPO Result Diagram: 07/22/1862507/22/18 06 Results 24hrs Laboratory Tests Test 07/22/18 06:26 07/22/18 10:43 White Blood Count 16.4 H Red Blood Count 3.23 L Hemoglobin 8.5 L Hematocrit 27.8 L Mean Corpuscular Volume 86.1 Mean Corpuscular Hemoglobin 26.3 L Mean Corpuscular Hemoglobin Concent 30.6 L Red Cell Distribution Width 17.4 H Platelet Count 170 Mean Platelet Volume 9.4 Immature Granulocytes % 1.500 H Neutrophils % 85.3 H Segmented Neutrophils % (Manual) 77 Band Neutrophils % (Manual) 14 H Lymphocytes % 4.2 L Lymphocytes % (Manual) 4 L Monocytes % 8.8 Monocytes % (Manual) 1 Eosinophils % 0.0 Basophils % 0.2 Basophils % (Manual) 1 Metamyelocytes % (manual) 3 H Nucleated Red Blood Cells % 0.0 Immature Granulocytes # 0.250 H Neutrophils # 14.0 H Neutrophils # (Manual) 13.0 H Band Neutrophils # 2.2 H Lymphocytes (Manual) 0.6 L Lymphocytes # 0.7 L Monocytes # 1.4 H Monocytes # (Manual) 0.1 L Eosinophils # 0.0 Basophils # 0.0 Basophils # (Manual) 0.1 H Metamyelocytes # 0.4 H Nucleated Red Blood Cells # 0.0 Platelet Estimate NORMAL Giant Platelets 1 H Poikilocytosis 1+ Anisocytosis 1+ Macrocytosis 1+ Prothrombin Time 18.2 #H Prothrombin Time Ratio 1.4 INR International Normalized Ratio 1.50 Activated Partial Thromboplast Time 39.0 H Sodium Level 134 L Potassium Level 4.4 Chloride Level 100 Carbon Dioxide Level 27 Anion Gap 7 Blood Urea Nitrogen 14 Creatinine 1.03 Est Glomerular Filtrat Rate mL/min > 60 Glucose Level 100 Calcium Level 7.2 L Phosphorus Level 4.1 Magnesium Level 1.7 Total Bilirubin 0.2 Direct Bilirubin 0.00 Indirect Bilirubin 0.2 Aspartate Amino Transf (AST/SGOT) 42 Alanine Aminotransferase (ALT/SGPT) 29 Alkaline Phosphatase 52 Total Protein 5.3 L Albumin 2.8 L Urine Color YELLOW Urine Clarity SLIGHTLY CLOUDY A Urine pH 5.0 Urine Specific [place] 1.017 Urine Ketones 1+ H Urine Nitrite NEGATIVE Urine Bilirubin NEGATIVE Urine Urobilinogen 1+ H Urine Leukocyte Esterase NEGATIVE Urine Microscopic RBC 1 Urine Microscopic WBC 1 Urine Hemoglobin 1+ H Urine Osmolality 454 Urine Random Creatinine 101.32 Urine Random Sodium 69 Urine Glucose 1+ H Urine Total Protein 46.0 H Subjective 24 Hr Interval Summary Free Text/Dictation Cholecsystectomy performed with evidence of CBD stent protrusion. Awaits MRCP and HIDA per Dr Lira patient with vomiting. Abdominal pain improved he says Exam/Review of Systems Exam Vitals Vital Signs Date Temp Pulse Resp B/P (MAP) Pulse Ox O2 O2 Flow FiO2 Time Delivery Rate 07/22/18 79 96/73 (81) 92 Nasal 1.0 11:10 Cannula 07/22/18 98.6 18 07:45 Intake and Output 07/21/18 07/21/18 07/22/18 1515:00 23:00 07:00 IntakeIntake Total 650 ml 2000 ml OutputOutput Total 700 ml 375 ml BalanceBalance -50 ml 2000 ml -375 ml Constitutional: alert, oriented, well developed Psych: no complaints, nl mood/affect Head: normocephalic, atraumatic Eyes: nl conjunctiva, EOMI, nl lids, nl sclera, PERRL ENMT: nl external ears & nose, nl lips & teeth, nl nasal mucosa & septum Neck: supple, non-tender Respiratory: clear to auscultation, normal air movement Cardiovascular: regular rate and rhythm, nl pulses Gastrointestinal: soft, nl liver, spleen, non-tender Musculoskeletal: nl extremities to inspection, nl gait and stance Extremities: normal pulses Neurological: DIETITIAN RESEARCH II-XII intact, nl mental status, nl speech, nl strength Skin: nl turgor; No rash or lesions Lymph: nl lymph nodes Results Results 24hrs Laboratory Tests Test 07/22/18 06:26 07/22/18 10:43 White Blood Count 16.4 H Red Blood Count 3.23 L Hemoglobin 8.5 L Hematocrit 27.8 L Mean Corpuscular Volume 86.1 Mean Corpuscular Hemoglobin 26.3 L Mean Corpuscular Hemoglobin Concent 30.6 L Red Cell Distribution Width 17.4 H Platelet Count 170 Mean Platelet Volume 9.4 Immature Granulocytes % 1.500 H Neutrophils % 85.3 H Segmented Neutrophils % (Manual) 77 Band Neutrophils % (Manual) 14 H Lymphocytes % 4.2 L Lymphocytes % (Manual) 4 L Monocytes % 8.8 Monocytes % (Manual) 1 Eosinophils % 0.0 Basophils % 0.2 Basophils % (Manual) 1 Metamyelocytes % (manual) 3 H Nucleated Red Blood Cells % 0.0 Immature Granulocytes # 0.250 H Neutrophils # 14.0 H Neutrophils # (Manual) 13.0 H Band Neutrophils # 2.2 H Lymphocytes (Manual) 0.6 L Lymphocytes # 0.7 L Monocytes # 1.4 H Monocytes # (Manual) 0.1 L Eosinophils # 0.0 Basophils # 0.0 Basophils # (Manual) 0.1 H Metamyelocytes # 0.4 H Nucleated Red Blood Cells # 0.0 Platelet Estimate NORMAL Giant Platelets 1 H Poikilocytosis 1+ Anisocytosis 1+ Macrocytosis 1+ Prothrombin Time 18.2 #H Prothrombin Time Ratio 1.4 INR International Normalized Ratio 1.50 Activated Partial Thromboplast Time 39.0 H Sodium Level 134 L Potassium Level 4.4 Chloride Level 100 Carbon Dioxide Level 27 Anion Gap 7 Blood Urea Nitrogen 14 Creatinine 1.03 Est Glomerular Filtrat Rate mL/min > 60 Glucose Level 100 Calcium Level 7.2 L Phosphorus Level 4.1 Magnesium Level 1.7 Total Bilirubin 0.2 Direct Bilirubin 0.00 Indirect Bilirubin 0.2 Aspartate Amino Transf (AST/SGOT) 42 Alanine Aminotransferase (ALT/SGPT) 29 Alkaline Phosphatase 52 Total Protein 5.3 L Albumin 2.8 L Urine Color YELLOW Urine Clarity SLIGHTLY CLOUDY A Urine pH 5.0 Urine Specific [place] 1.017 Urine Ketones 1+ H Urine Nitrite NEGATIVE Urine Bilirubin NEGATIVE Urine Urobilinogen 1+ H Urine Leukocyte Esterase NEGATIVE Urine Microscopic RBC 1 Urine Microscopic WBC 1 Urine Hemoglobin 1+ H Urine Osmolality 454 Urine Random Creatinine 101.32 Urine Random Sodium 69 Urine Glucose 1+ H Urine Total Protein 46.0 H Medications Medication Current Medications IV Flush (NS 3 ml) 3 ml PER PROTOCOL IV ; Start 07/20/18 at 11:30 Ondansetron HCl (Zofran Inj) 4 mg Q6H PRN IV NAUSEA/VOMITING Last administered on 07/22/18at 10:42; Admin Dose 4 MG; Start 07/20/18 at 11:30 Hydromorphone HCl (Dilaudid) 0.5 mg Q4H PRN IV .SEVERE PAIN 7-10 Last administered on 07/22/18at 03:47; Admin Dose 0.5 MG; Start 07/20/18 at 11:30 Acetaminophen 100 ml @ 400 mls/hr Q8H PRN IVPB MILD PAIN(1-3) OR TEMP>38C Last administered on 07/21/18at 14:32; Admin Dose 400 MLS/HR; Start 07/21/18 at 01:30; Stop 07/23/18 at 01:29 Meropenem/Sodium Chloride 50 ml @ 100 mls/hr Q8 IVPB Last administered on 07/22/18at 06:50; Admin Dose 100 MLS/HR; Start 07/21/18 at 22:00 Sodium Chloride 1,000 ml @ 125 mls/hr Q8H IV Last administered on 07/22/18at 04:02; Admin Dose 125 MLS/HR; Start 07/21/18 at 22:30 Ondansetron HCl (Zofran Inj) 4 mg Q6H PRN IV NAUSEA AND/OR VOMITING; Start 07/22/18 at 02:30 Hydromorphone HCl (Dilaudid) 0.5 mg Q4H PRN IV BREAKTHROUGH PAIN; Start 07/22/18 at 02:30 Acetaminophen (Tylenol Tab) 650 mg Q6H PRN PO MILD PAIN(1-3)OR ELEVATED TEMP; Start 07/22/18 at 02:30 Famotidine (Pepcid Iv) 20 mg Q12 IV Last administered on 07/22/18at 08:18; Admin Dose 20 MG; Start 07/22/18 at 09:00 YOHANA CHAUHAN MD Jul 22, 2018 13:34
--- NOTE | 2018-07-22 18:45 | NUR ---
End of shift- Pt. remains NPO except for ice chips. Medicated twice this shift each for pain and nausea. MARCOS drained 315cc brown fluid this shift. Hida Scan and MRCP completed today. Not passing gas. RA sat=89 but pt. breathing shallow and laying flat. Reminded to use Incentive spirometer x10 every hour. O2 at 2L NC.
--- NOTE | 2018-07-23 00:07 | NUR ---
RN Notes Patient received in stable condition. No immediate complaints of pain. No signs of pain observed. Patient is s/p MRCP and HIDA scan, s/p demar with three incisions to abdomen. Patient has MARCOS drain with moderate output. Output recorded. Addendum: 07/23/18 at 0042 by JAXON GALLEGOS RN Dr. Henriquez in to see patient. Per Dr. Henriquez, patient to be transferred to [facility] for higher level of care. Patient and patient's son verbalized understanding. Addendum: 07/23/18 at 0342 by JAXON GALLEGOS RN Patient pending transfer, to be picked up by [facility] ambulance between [id number]. Confirmation number: [id number]. Called [facility] to give report to nurse who will be taking care of patient, Aminah.
--- NOTE | 2018-07-23 00:16 | NUR ---
Spoke w Dr. Henriquez needs to transfer pt to [facility], has accepting MD Dr. Eulalio Mayen for GI management. Spoke daniel Brock at transfer center [phone] and faxed FS to [phone].
--- NOTE | 2018-07-23 00:45 | PN ---
Date/Time of Note Date/Time of Note DATE: 07/23/18 TIME: 00:34 Assessment/Plan VTE Prophylaxis Risk score (from Ns)>0 risk: 5 SCD applied (from Ns): Yes Pharmacological prophylaxis: NA/contraindicated (immediate post-op with oozing in operative field . hold anticoagulation ) Pharm contraindication: surgical contra Lines/Catheters [facility]from [facility]): Peripheral IV Urinary Cath still in place: No Assessment/Plan Hospital Course Patient with acute cholecystitis choledocholithiasis now 1 week status post ERCP. Patient was readmitted 2 days ago for increased abdominal pain. CAT scan revealed marked increase in inflammation gallbladder with pericholecystic fluid and signs and marked distention of the gallbladder signs and symptoms consistent with the cystitis. Patient underwent laparoscopic cholecystectomy last evening and there was a marked amount of inflammation behind in order to avoid dissection by the distal duct. At the time of surgery was also noted that there was clearly visible stent which must represent a perforation of the bile duct. A drain was placed to accumulated the anticipated bile leak. ERCP MRCP and HIDA scan were done today which shows some egress of flow out of the main bile duct with continuity into the duodenum. Possible CBD perforation with biliary stent. I discussed with Dr. Vitor Mayen [facility] hepatobiliary division. Consensus is the patient would be best served from transfer to a higher level of care for further evaluation and repair reconstruction as deemed necessary. I discussed with hospitalist Dr. Fabian Wilson and in depth with the patient and his son explained the situation and my assessment and recommendations. All are agreed to the plan we have put in a call to the transfer center and await transfer of patient to [facility]. Result Diagram: 07/22/18 0607/22/18 0626 Results 24hrs Laboratory Tests Test 07/22/18 06:26 07/22/18 10:43 White Blood Count 16.4 H Red Blood Count 3.23 L Hemoglobin 8.5 L Hematocrit 27.8 L Mean Corpuscular Volume 86.1 Mean Corpuscular Hemoglobin 26.3 L Mean Corpuscular Hemoglobin Concent 30.6 L Red Cell Distribution Width 17.4 H Platelet Count 170 Mean Platelet Volume 9.4 Immature Granulocytes % 1.500 H Neutrophils % 85.3 H Segmented Neutrophils % (Manual) 77 Band Neutrophils % (Manual) 14 H Lymphocytes % 4.2 L Lymphocytes % (Manual) 4 L Monocytes % 8.8 Monocytes % (Manual) 1 Eosinophils % 0.0 Basophils % 0.2 Basophils % (Manual) 1 Metamyelocytes % (manual) 3 H Nucleated Red Blood Cells % 0.0 Immature Granulocytes # 0.250 H Neutrophils # 14.0 H Neutrophils # (Manual) 13.0 H Band Neutrophils # 2.2 H Lymphocytes (Manual) 0.6 L Lymphocytes # 0.7 L Monocytes # 1.4 H Monocytes # (Manual) 0.1 L Eosinophils # 0.0 Basophils # 0.0 Basophils # (Manual) 0.1 H Metamyelocytes # 0.4 H Nucleated Red Blood Cells # 0.0 Platelet Estimate NORMAL Giant Platelets 1 H Poikilocytosis 1+ Anisocytosis 1+ Macrocytosis 1+ Prothrombin Time 18.2 #H Prothrombin Time Ratio 1.4 INR International Normalized Ratio 1.50 Activated Partial Thromboplast Time 39.0 H Sodium Level 134 L Potassium Level 4.4 Chloride Level 100 Carbon Dioxide Level 27 Anion Gap 7 Blood Urea Nitrogen 14 Creatinine 1.03 Est Glomerular Filtrat Rate mL/min > 60 Glucose Level 100 Calcium Level 7.2 L Phosphorus Level 4.1 Magnesium Level 1.7 Total Bilirubin 0.2 Direct Bilirubin 0.00 Indirect Bilirubin 0.2 Aspartate Amino Transf (AST/SGOT) 42 Alanine Aminotransferase (ALT/SGPT) 29 Alkaline Phosphatase 52 Total Protein 5.3 L Albumin 2.8 L Urine Color YELLOW Urine Clarity SLIGHTLY CLOUDY A Urine pH 5.0 Urine Specific [place] 1.017 Urine Ketones 1+ H Urine Nitrite NEGATIVE Urine Bilirubin NEGATIVE Urine Urobilinogen 1+ H Urine Leukocyte Esterase NEGATIVE Urine Microscopic RBC 1 Urine Microscopic WBC 1 Urine Hemoglobin 1+ H Urine Osmolality 454 Urine Random Creatinine 101.32 Urine Random Sodium 69 Urine Glucose 1+ H Urine Total Protein 46.0 H Subjective 24 Hr Interval Summary Free Text/Dictation Patient is now postop laparoscopic cholecystectomy last evening. Of note at time of surgery the biliary stent which was placed by ERCP was noted to be partially outside of the common bile duct. There was a significant amount of inflammation around the gallbladder and though there was minimal dissection at the area of the common bile duct it was appreciated that there was a stent which was extraluminal of the common bile duct. Patient has been stable hemodynamically. Bile drainage is noted in the Jong drain today approximately 350 cc since time of surgery. A HIDA scan and MRCP were done today which show some egress out of the bile duct being collected by the drain which was placed. There is no obvious malpositioning of the stent however on MRCP. Lab tests are within normal limits the bilirubin is normal. I discussed with Dr. Maier the results of the MRCP and HIDA scan and possibility for ERCP. I believe that the patient would benefit from transfer to higher level of care as though he appears clinically stable now the biliary stent is clearly outside of the bile duct and this represents a perforation of the bile duct which needs to be addressed. I have discussed with Dr. Mayen at [facility] hepatobiliary division and he agrees with my assessment that the patient was served best from being at a higher level of care for ERCP and possible reconstruction as necessary. I discussed with Dr. Fabian Wilson who is the hospitalist electronic gluer. I have discussed with the transfer center at [facility] and case management here at [facility] and we will proceed with transferring the patient to [facility]. Exam/Review of Systems Exam Vitals Vital Signs Date Temp Pulse Resp B/P (MAP) Pulse Ox O2 O2 Flow FiO2 Time Delivery Rate 07/22/18 98.7 19 117/56 99 20:00 (76) 07/22/18 80 Nasal 14:23 Cannula 07/22/18 1.0 11:10 Intake and Output 07/22/18 07/22/18 07/23/18 1515:00 23:00 07:00 IntakeIntake Total 1050 ml 1375 ml OutputOutput Total 555 ml 110 ml BalanceBalance 495 ml 1265 ml Results Results 24hrs Laboratory Tests Test 07/22/18 06:26 07/22/18 10:43 White Blood Count 16.4 H Red Blood Count 3.23 L Hemoglobin 8.5 L Hematocrit 27.8 L Mean Corpuscular Volume 86.1 Mean Corpuscular Hemoglobin 26.3 L Mean Corpuscular Hemoglobin Concent 30.6 L Red Cell Distribution Width 17.4 H Platelet Count 170 Mean Platelet Volume 9.4 Immature Granulocytes % 1.500 H Neutrophils % 85.3 H Segmented Neutrophils % (Manual) 77 Band Neutrophils % (Manual) 14 H Lymphocytes % 4.2 L Lymphocytes % (Manual) 4 L Monocytes % 8.8 Monocytes % (Manual) 1 Eosinophils % 0.0 Basophils % 0.2 Basophils % (Manual) 1 Metamyelocytes % (manual) 3 H Nucleated Red Blood Cells % 0.0 Immature Granulocytes # 0.250 H Neutrophils # 14.0 H Neutrophils # (Manual) 13.0 H Band Neutrophils # 2.2 H Lymphocytes (Manual) 0.6 L Lymphocytes # 0.7 L Monocytes # 1.4 H Monocytes # (Manual) 0.1 L Eosinophils # 0.0 Basophils # 0.0 Basophils # (Manual) 0.1 H Metamyelocytes # 0.4 H Nucleated Red Blood Cells # 0.0 Platelet Estimate NORMAL Giant Platelets 1 H Poikilocytosis 1+ Anisocytosis 1+ Macrocytosis 1+ Prothrombin Time 18.2 #H Prothrombin Time Ratio 1.4 INR International Normalized Ratio 1.50 Activated Partial Thromboplast Time 39.0 H Sodium Level 134 L Potassium Level 4.4 Chloride Level 100 Carbon Dioxide Level 27 Anion Gap 7 Blood Urea Nitrogen 14 Creatinine 1.03 Est Glomerular Filtrat Rate mL/min > 60 Glucose Level 100 Calcium Level 7.2 L Phosphorus Level 4.1 Magnesium Level 1.7 Total Bilirubin 0.2 Direct Bilirubin 0.00 Indirect Bilirubin 0.2 Aspartate Amino Transf (AST/SGOT) 42 Alanine Aminotransferase (ALT/SGPT) 29 Alkaline Phosphatase 52 Total Protein 5.3 L Albumin 2.8 L Urine Color YELLOW Urine Clarity SLIGHTLY CLOUDY A Urine pH 5.0 Urine Specific [place] 1.017 Urine Ketones 1+ H Urine Nitrite NEGATIVE Urine Bilirubin NEGATIVE Urine Urobilinogen 1+ H Urine Leukocyte Esterase NEGATIVE Urine Microscopic RBC 1 Urine Microscopic WBC 1 Urine Hemoglobin 1+ H Urine Osmolality 454 Urine Random Creatinine 101.32 Urine Random Sodium 69 Urine Glucose 1+ H Urine Total Protein 46.0 H Medications Medication Current Medications IV Flush (NS 3 ml) 3 ml PER PROTOCOL IV ; Start 07/20/18 at 11:30 Hydromorphone HCl (Dilaudid) 0.5 mg Q4H PRN IV .SEVERE PAIN 7-10 Last adm inistered on 07/22/18at 18:39; Admin Dose 0.5 MG; Start 07/20/18 at 11:30 Acetaminophen 100 ml @ 400 mls/hr Q8H PRN IVPB MILD PAIN(1-3) OR TEMP>38C Last administered on 07/21/18at 14:32; Admin Dose 400 MLS/HR; Start 07/21/18 at 01:30; Stop 07/23/18 at 01:29 Meropenem/Sodium Chloride 50 ml @ 100 mls/hr Q8 IVPB Last administered on 07/22/18at 21:43; Admin Dose 100 MLS/HR; Start 07/21/18 at 22:00 Sodium Chloride 1,000 ml @ 125 mls/hr Q8H IV Last administered on 07/22/18 22:37; Admin Dose 125 MLS/HR; Start 07/21/18 at 22:30 Ondansetron HCl (Zofran Inj) 4 mg Q6H PRN IV NAUSEA AND/OR VOMITING Last administered on 07/22/18 18:39; Admin Dose 4 MG; Start 07/22/18 at 02:30 Hydromorphone HCl (Dilaudid) 0.5 mg Q4H PRN IV BREAKTHROUGH PAIN; Start 07/22/18 at 02:30 Acetaminophen (Tylenol Tab) 650 mg Q6H PRN PO MILD PAIN(1-3)OR ELEVATED TEMP; Start 07/22/18 at 02:30 Famotidine (Pepcid Iv) 20 mg Q12 IV Last administered on 07/22/18at 20:10; Admin Dose 20 MG; Start 07/22/18 at 09:00 SAVI HUA MD Jul 23, 2018 00:44
[2018-07-23] MEDS: HYDROmorphONE 0.5 MG/0.5 ML SYG IV PRN (00:51)
--- NOTE | 2018-07-23 01:10 | DS ---
Date/Time of Note Date/Time of Note DATE: 07/23/18 TIME: 01:10 Discharge Summary Admission/Discharge Info Admit Date/Time Jul 20, 2018 at 09:29 Discharge Date/Time Patient Condition: Stable Hospital Course Patient is a male with a past medical history significant for recurrent SBO and gallstones as well as psoriasis and on methotrexate at home who presents to [facility] for abdominal pain. Patient was actually admitted in the prior week for same abdominal pain symptoms, diagnosed with choledocholithiasis and GI performed ERCP with stent placement. Patient was discharged as his cholelithiasis was stable her outpatient cholecystectomy. Patient returned to the ED for continued pain, was found to have cholecystitis and general surgery took patient to the OR for removal. During the surgery the surgeon noted that the CBD stone may have perforated the common bile duct causing a leak. General surgery placed a drain before closing patient up in anticipation of the bile leak. GI and surgery then discussed and a MRCP and HIDA scan were ordered which showed some egress of flow out of the main bile duct with continuity into the duodenum. General surgery subsequently was concerned for perforation of the common bile duct with a biliary stent. General surgery spoke with Dr. Vitor Mayen of [facility] hepatobiliary division and patient will now be transferred over to [facility]. Currently patient's vitals are stable, on normal saline, 117/56 was last blood pressure, patient doing perfectly fine on 2 L nasal cannula, likely does not even need nasal cannula. Patient's white count is downtrending from 17-16.4, patient feels well, alert and oriented with mild pain from previous cholecystectomy. Patient is stable for transfer. Patient is currently on Merrem as a prophylactic measure for intra-abdominal infection. Patient's recent bilirubin is within normal limits as well as AST and ALT. Discharge diagnosis Cholecystitis, status post cholecystectomy Possible common bile duct perforation by common bile stent Mild hypotension, resolving Sepsis, resolving Leukocytosis, resolving Elevated INR, occurred after surgery, possibly secondary to biliary issues, original INR was 0.95 currently at 1.5, with monitor closely Psoriasis, chronic, stable GERD, chronic, stable Home Meds Reported Medications Methotrexate* (Methotrexate*) 2.5 Mg Tab, 20 MG PO Q7D, TAB 07/14/18 Ondansetron Hcl* (Zofran*) 8 Mg Tab, 8 MG PO Q8, TAB 2/7/19 Docusate Sodium* (Stool Softener*) 100 Mg Capsule, 100 MG PO TID, CAP 07/14/18 [place]-3 Fatty Acids/Fish Oil ([place] 3 1,000 mg Softgel) 1 Each Capsule, 1 EACH PO BID, CAP 07/14/18 Meloxicam* (Mobic*) 15 Mg Tablet, 15 MG PO DAILY, #30 TAB 07/14/18 Omeprazole* (Omeprazole*) 20 Mg Capsule.dr, 20 MG PO DAILY, #30 CAP 07/14/18 Discontinued Reported Medications Metformin Hcl* (Metformin Hcl*) 1,000 Mg Tablet, 1000 MG PO WITH BREAKFAST DI NNE, #60 TAB 07/14/18 Primary Care Provider Not On Staff Doctor Time spent on discharge: > 30 minutes Pending Labs Laboratory Tests Test 07/22/18 06:26 07/22/18 10:43 White Blood Count 16.4 10^3/ul (4.8-10.8) Red Blood Count 3.23 10^6/ul (4.70-6.10) Hemoglobin 8.5 g/dl (14.0-18.0) Hematocrit 27.8 % (42.0-52.0) Mean Corpuscular Volume 86.1 fl (82.0-101.0) Mean Corpuscular 26.3 pg (29.0-33.0) Hemoglobin Mean Corpuscular 30.6 g/dl (32.0-37.0) Hemoglobin Concent Red Cell Distribution 17.4 % (11.5-14.5) Width Platelet Count 170 10^3/UL (140-415) Mean Platelet Volume 9.4 fl (7.4-10.4) Immature Granulocytes % 1.500 % (0.001-0.429) Neutrophils % 85.3 % (39.0-77.0) Segmented Neutrophils 77 % (39-77) % (Manual) Band Neutrophils % 14 % (0-4) (Manual) Lymphocytes % 4.2 % (15.0-51.0) Lymphocytes % (Manual) 4 % (15-51) Monocytes % 8.8 % (0.0-11.0) Monocytes % (Manual) 1 % (0-11) Eosinophils % 0.0 % (0.0-7.0) Basophils % 0.2 % (0.0-2.0) Basophils % (Manual) 1 % (0-2) Metamyelocytes % (manual) 3 % (0-0) Nucleated Red Blood Cells 0.0 /100WBC (0.0-0.0) % Immature Granulocytes # 0.250 10^3/ul (0.0-0.031) Neutrophils # 14.0 10^3/ul (1.6-7.5) Neutrophils # (Manual) 13.0 10^3/ul (1.6-7.5) Band Neutrophils # 2.2 10^3/ul (0.0-0.6) Lymphocytes (Manual) 0.6 10^3/ul (0.8-2.9) Lymphocytes # 0.7 10^3/ul (0.8-2.9) Monocytes # 1.4 10^3/ul (0.3-0.9) Monocytes # (Manual) 0.1 10^3/ul (0.3-0.9) Eosinophils # 0.0 10^3/ul (0.0-0.5) Basophils # 0.0 10^3/ul (0.0-0.1) Basophils # (Manual) 0.1 10^3/ul (0.0-0.0) Metamyelocytes # 0.4 10^3/ul (0.0-0.0) Nucleated Red Blood Cells 0.0 10^3/ul (0.0-0.0) # Platelet Estimate NORMAL Giant Platelets 1 % (0-0) Poikilocytosis 1+ (0-0) Anisocytosis 1+ (0-0) Macrocytosis 1+ (0-0) Prothrombin Time 18.2 Sec (11.9-14.9) Prothrombin Time Ratio 1.4 INR International 1.50 Normalized Ratio Activated 39.0 Sec (23.0-35.0) Partial Thromboplast Time Sodium Level 134 mmol/L (135-144) Potassium Level 4.4 mmol/L (3.5-5.1) Chloride Level 100 mmol/L (97-110) Carbon Dioxide Level 27 mmol/L (21-31) Anion Gap 7 (5-13) Blood Urea Nitrogen 14 mg/dl (7-20) Creatinine 1.03 mg/dl (0.61-1.24) Est Glomerular Filtrat > 60 mL/min (>60) Rate mL/min Glucose Level 100 mg/dl (70-220) Calcium Level 7.2 mg/dl (8.4-10.2) Phosphorus Level 4.1 mg/dl (2.5-4.9) Magnesium Level 1.7 mg/dl (1.7-2.5) Total Bilirubin 0.2 mg/dl (0.2-1.3) Direct Bilirubin 0.00 mg/dl (0.00-0.20) Indirect Bilirubin 0.2 mg/dl (0-1.1) Aspartate Amino 42 IU/L (15-46) Transf (AST/SGOT) Alanine 29 IU/L (13-69) Aminotransferase (ALT/SGPT ) Alkaline Phosphatase 52 IU/L (42-121) Total Protein 5.3 g/dl (6.1-8.1) Albumin 2.8 g/dl (3.3-4.9) Urine Color YELLOW (YELLOW) Urine Clarity SLIGHTLY CLOUDY (CLEAR) Urine pH 5.0 (5.0-9.0) Urine Specific [place] 1.017 (1.003-1.030) Urine Ketones 1+ mg/dL (NEGATIVE) Urine Nitrite NEGATIVE mg/dL (NEGATIVE) Urine Bilirubin NEGATIVE mg/dL (NEGATIVE) Urine Urobilinogen 1+ mg/dL (NEGATIVE) Urine Leukocyte Esterase NEGATIVE Stevo/ul Urine Microscopic RBC 1 /HPF (0-5) Urine Microscopic WBC 1 /HPF (0-5) Urine Hemoglobin 1+ mg/dL (NEGATIVE) Urine Osmolality 454 mOsm/kg (250-1200) Urine Random Creatinine 101.32 mg/dl (20-370) Urine Random Sodium 69 mmol/L (30-90) Urine Glucose 1+ mg/dL (NEGATIVE) Urine Total Protein 46.0 mg/dl (0.0-11.9) CRISS AHRRIS Jul 23, 2018 01:10
[2018-07-23 02:00] VITALS: BP 122/59; PULSE 71; RESP 18
[2018-07-23] MEDS: ONDANSETRON 4 MG INJ IV PRN (04:10)
--- NOTE | 2018-07-23 05:18 | NUR ---
RN Notes/Transfer to [facility]. Patient left unit in stable condition. No complaints of pain or discomfort. Patient alert and oriented to person, place, time and situation. Patient's son,Ubaldo, notified of transfer and patient's room number at [facility] (room#[id number]).
--- NOTE | 2018-07-23 19:39 | CONS ---
DATE OF ADMISSION: 07/20/2018 DATE OF CONSULTATION: TYPE OF CONSULTATION: Gastroenterology. Dear Dr. Criss Wilson; Thank you for asking me to see Mr. Herndon in GI consultation. The patient, as you know, is a 67-year-old male admitted to the hospital with history of acu te abdominal pain and CAT scan of the abdomen shows evidence of a cholecystitis. According to the no van, he was discharged from this hospital several days ago after he had an ERCP and CBD stone was rem xavier. Pigtail common bile duct stent was placed and after the discharge, the patient developed abdom inal pain and patient did well for 2 or 3 days. He had minimal abdominal pain and hence he was admit bennie on 07/20/2018 because of abdominal pain. MEDICATIONS PRIOR TO ADMISSION: 1. Methotrexate. 2. Zofran. 3. Stool softener. 4. [place]. 5. Mobic. 6. Omeprazole. 7. Metformin. PHYSICAL EXAMINATION: GENERAL: When I saw the patient yesterday, he appeared to be alert and not in distress. VITAL SIGNS: Temperature 97.9, blood pressure 117/65, pulse is 80. CARDIOVASCULAR: Normal heart sounds. RESPIRATORY: Normal breath sounds. ABDOMEN: Showed status post surgery. LABORATORY DATA: The clinical laboratory workup on 07/22/2018, WBC count 16,000, although on admissi on on 07/20/2018, WBC count was 8500. Hemoglobin dropped to 8.5 yesterday. Chemistry: Potassium is 4.4, BUN is 14, creatinine 1.03, bilirubin 0.2, AST is 42, ALT is 29, alkaline phosphatase is 52. CLINICAL IMPRESSION: The patient at the time of admission on 07/20/2018 was presenting with acute ab dominal pain. It is consistent with acute cholecystitis and patient underwent open cholecystectomy. During the surgery, patient was found to have a CBD stent visible, probably through the common hepat ic duct area. Because of the possibility that the common bile duct stent may have a perforated the common hepatic d uct, a GI consultation is requested. PLAN: Plan at this time is to find out more anatomy of the stent and rest of the biliary tract isiah Devine ordered a hepatobiliary scan and MRCP. Based on that, we will proceed with an ERCP if needed. So this consultation is based on the examination on 07/22/2018. Further plan will be discussed with Dr. Henriquez. Dictated By: PADMA CHE MD NC/NTS Conf#: [id number] DID#: [id number] CC: YOHANA CHAUHAN MD; CRISS WILSON MD;*EndCC*
== END 2018-07-23 05:21 | disposition short-term general hospital (02) | DRG 907 ==
LOC: E/R 08:33 → PP2 09:29
PROVIDERS: ADMIT Internal Medicine; ATTEND Internal Medicine
PROC: 0FT44ZZ Resection of Gallbladder, Percutaneous Endoscopic Approach (ICD-10-PCS; principal; 2018-07-21 21:30)
DX: T85.590A Other mechanical complication of bile duct prosthesis, initial encounter (principal); A41.9 Sepsis, unspecified organism; K80.00 Calculus of gallbladder with acute cholecystitis without obstruction; E87.1 Hypo-osmolality and hyponatremia; I95.9 Hypotension, unspecified; T85.79XA Infection and inflammatory reaction due to other internal prosthetic devices, implants and grafts, initial encounter; K82.8 Other specified diseases of gallbladder; K21.9 Gastro-esophageal reflux disease without esophagitis; L40.9 Psoriasis, unspecified; G89.4 Chronic pain syndrome; Y83.8 Other surgical procedures as the cause of abnormal reaction of the patient, or of later complication, without mention of misadventure at the time of the procedure; Y73.8 Miscellaneous gastroenterology and urology devices associated with adverse incidents, not elsewhere classified; Y92.019 Unspecified place in single-family (private) house as the place of occurrence of the external cause
CPT/HCPCS: 36415; 74177; 74181; 78226; 80048; 80053; 80069; 80076; 81001; 81003; 82043; 83036; 83690; 83735; 83935; 84100; 84155; 84300; 84484; 85025; 85610; 85730; 87040; 87070; 87075; 87081; 87102; 87116; 88304; 93005; 96374; 96375; A9537; J1170; J2185; J2250; J2270; J2405; J2543; J2710; J3010; J3480; J7030; J7040; P9047; Q9967

== ENCOUNTER 2018-08-11 15:08 | Emergency (ER) | payer MEDICARE, OTHER ==
[~2018-08-11] VITALS: Ht 160 cm; Wt 71.0 kg
[2018-08-11 15:20] VITALS: Ht 160 cm; Wt 71.0 kg
--- NOTE | 2018-08-11 22:17 | ERD ---
ER Documentation Chief Complaint Chief Complaint fever , vomiting , runny nose , dizziness x 3 days HPI 67 year-old male with history of choledocholithiasis presents with nausea vomiting and chills for the past 2 days.'s states that he is only vomited twice, once this morning and once yesterday morning. States that he had a staple removal procedure done on Wednesday and the surgeon told him that if he had any vomiting he should go straight to the ER. Denies any fevers, abdominal pain, or constipation. States that his last bowel movement was yesterday. States that the vomit is nonbilious and nonbloody. ROS All systems reviewed and are negative except as per history of present illness. Medications Home Meds Active Scripts Ibuprofen* (Motrin*) 400 Mg Tab, 400 MG PO Q6H PRN for PAIN AND OR ELEVATED TEMP, #30 TAB Prov:SAVI HAMM 08/12/18 Dextromethorphan Hb-Promethazine Hcl* (Promethazine DM* Syrup) 473 Ml Syrup, 5 ML PO Q6 PRN for COUGH, #4 OZ Prov:SAVI HAMM 08/12/18 Ondansetron (Ondansetron Odt) 8 Mg Tab.rapdis, 8 MG PO Q6H PRN for NAUSEA AND/OR VOMITING, #10 TAB Prov:SAVI HAMM 08/12/18 Reported Medications Methotrexate* (Methotrexate*) 2.5 Mg Tab, 20 MG PO Q7D, TAB 07/14/18 Ondansetron Hcl* (Zofran*) 8 Mg Tab, 8 MG PO Q8, TAB 07/14/18 Docusate Sodium* (Stool Softener*) 100 Mg Capsule, 100 MG PO TID, CAP 07/14/18 [place]-3 Fatty Acids/Fish Oil ([place] 3 1,000 mg Softgel) 1 Each Capsule, 1 EACH PO BID, CAP 07/14/18 Meloxicam* (Mobic*) 15 Mg Tablet, 15 MG PO DAILY, #30 TAB 07/14/18 Omeprazole* (Omeprazole*) 20 Mg Capsule.dr, 20 MG PO DAILY, #30 CAP 07/14/18 Allergies Allergies: Coded Allergies: No Known Allergies (Verified Allergy, Unknown, 07/20/18) PMhx/Soc History of Surgery: Yes (Hip, Biliary Stent Placement) Anesthesia Reaction: No Hx Neurological Disorder: No Hx Respiratory Disorders: Yes (Asthma) Hx Cardiac Disorders: No Hx Psychiatric Problems: No Hx Miscellaneous Medical Probl: No Hx Alcohol Use: Yes (Occasional) Hx Substance Use: No Hx Tobacco Use: No Smoking Status: Never smoker FmHx Family History: No diabetes, No coronary disease, No other Physical Exam Vitals Vital Signs Date Temp Pulse Resp B/P (MAP) Pulse Ox O2 O2 Flow FiO2 Time Delivery Rate 08/12/18 98.4 74 20 108/57 98 Room Air 00:33 (74) 08/11/18 98.5 68 18 114/58 98 15:20 (76) Physical Exam Const: No acute distress Head: Atraumatic Eyes: Normal Conjunctiva ENT: Normal External Ears, Nose and Mouth. Neck: Full range of motion. No meningismus. Resp: Clear to auscultation bilaterally Cardio: Regular rate and rhythm, no murmurs Abd: Soft, non tender, non distended. Normal bowel sounds. Negative Romero's. No McBurney's tenderness. Skin: No petechiae or rashes Back: No midline or flank tenderness Ext: No cyanosis, or edema Neur: Awake and alert Psych: Normal Mood and Affect Result Diagram: 08/11/183 08/11/18 2213 Results 24 hrs Laboratory Tests Test 08/11/18 22:13 White Blood Count 5.0 10^3/ul Red Blood Count 3.71 10^6/ul Hemoglobin 9.6 g/dl Hematocrit 31.3 % Mean Corpuscular Volume 84.4 fl Mean Corpuscular Hemoglobin 25.9 pg Mean Corpuscular Hemoglobin Concent 30.7 g/dl Red Cell Distribution Width 18.4 % Platelet Count 167 10^3/UL Mean Platelet Volume 9.6 fl Immature Granulocytes % 0.200 % Neutrophils % % Segmented Neutrophils % (Manual) 62 % Band Neutrophils % (Manual) 2 % Lymphocytes % % Lymphocytes % (Manual) 21 % Monocytes % % Monocytes % (Manual) 15 % Eosinophils % % Basophils % % Nucleated Red Blood Cells % 0.0 /100WBC Immature Granulocytes # 0.010 10^3/ul Neutrophils # 10^3/ul Neutrophils # (Manual) 3.1 10^3/ul Band Neutrophils # 0.1 10^3/ul Lymphocytes (Manual) 1.0 10^3/ul Lymphocytes # 10^3/ul Monocytes # 10^3/ul Monocytes # (Manual) 0.7 10^3/ul Eosinophils # 10^3/ul Basophils # 10^3/ul Nucleated Red Blood Cells # 10^3/ul Platelet Estimate NORMAL Poikilocytosis 1+ Ovalocytes 1+ Urine Color YELLOW Urine Clarity CLEAR Urine pH 5.0 Urine Specific [place] 1.023 Urine Ketones TRACE mg/dL Urine Nitrite NEGATIVE mg/dL Urine Bilirubin NEGATIVE mg/dL Urine Urobilinogen 2+ mg/dL Urine Leukocyte Esterase NEGATIVE Stevo/ul Urine Hemoglobin NEGATIVE mg/dL Urine Glucose NEGATIVE mg/dL Urine Total Protein NEGATIVE mg/dl Sodium Level 136 mmol/L Potassium Level 4.4 mmol/L Chloride Level 97 mmol/L Carbon Dioxide Level 29 mmol/L Anion Gap 10 Blood Urea Nitrogen 11 mg/dl Creatinine 0.86 mg/dl Est Glomerular Filtrat Rate mL/min > 60 mL/min Glucose Level 112 mg/dl Calcium Level 8.6 mg/dl Total Bilirubin 0.2 mg/dl Direct Bilirubin 0.00 mg/dl Indirect Bilirubin 0.2 mg/dl Aspartate Amino Transf (AST/SGOT) 31 IU/L Alanine Aminotransferase (ALT/SGPT) 21 IU/L Alkaline Phosphatase 120 IU/L Total Protein 7.7 g/dl Albumin 3.7 g/dl Globulin 4.00 g/dl Albumin/Globulin Ratio 0.92 Lipase 79 U/L Procedures/MDM DIAGNOSTIC IMAGING REPORT Patient: TIA CERNA : 1950 Age: 67 Sex: M MR #: [id number] DOS: 08/11/18 2206 Ordering MD: SAVI HAMM Location: [facility] Room/Bed: PROCEDURE: XR chest. CLINICAL INDICATION: Cough, status post surgery TECHNIQUE: 2 views of the chest were obtained. COMPARISON: [id number] FINDINGS: The patient is rotated on lateral view. Heart remains mildly enlarged. Aorta is tortuous. There is no pneumothorax or pleural effusion. Retrocardiac infiltrates are questioned on the lateral view. There are mild degenerative changes of the thoracic spine. A biliary stent is partially seen in the upper abdomen. IMPRESSION: 1. Questionable retrocardiac opacities, evaluation is limited due to rotation on the lateral view. Recommend repeat lateral chest radiograph. RPTAT:HAJM Physician Julio Date Time Electronically viewed and signed by Nikhil Nunez Physician on 08/11/2018 23:10 RM/ CC: SAVI HAMM [id number] 67 year-old male with history of choledocholithiasis presents with nausea vomiting and chills for the past 2 days.'s states that he is only vomited twice, once this morning and once yesterday morning. States that he had a staple removal procedure done on Wednesday and the surgeon told him that if he had any vomiting he should go straight to the ER. Denies any fevers, abdominal pain, or constipation. States that his last bowel movement was yesterday. States that the vomit is nonbilious and nonbloody. I have low suspicion for any acute or emergent process, however due to the patient's surgical history as well as his surgeons recommendation that if he has any vomiting he should come immediately to the ER, cautions were made to rule out any emergent conditions. Therefore basic blood work as well as chest x-ray was ordered. All is within normal limits. Influenza was also negative. Therefore low suspicion for any infection, acute abdomen, abdominal abscess, bowel obstruction, or other emergent condition. Due to the patient's complicated surgical history I discussed the case with Dr. Littlejohn my supervising physician prior to discharge. Dr. Littlejohn did confirm the patient was fit for discharge with ER precautions. Patient was advised to return to the ER if there is any abdominal pain worsening vomiting, fevers or other worsening of symptoms. Patient discharged with strict ER precautions. Patient advised to follow up with PMD. All questions answered at discharge. Departure Diagnosis: Primary Impression: Influenza-like symptoms Condition: Stable SAVI HAMM Aug 11, 2018 22:17
[2018-08-12] MEDS ORDERED: IBUP-1561 PO
[2018-08-12] MEDS ORDERED: D-ME473S2 PO
[2018-08-12] MEDS ORDERED: ONDA8TAB14 PO
[2018-08-12 00:33] VITALS: BP 108/57; PULSE 74; RESP 20
== END 2018-08-12 00:34 | disposition home or self-care (01) ==
LOC: FTE 15:08
DX: R50.9 Fever, unspecified (principal); R11.2 Nausea with vomiting, unspecified; R09.89 Other specified symptoms and signs involving the circulatory and respiratory systems; R42 Dizziness and giddiness; J45.909 Unspecified asthma, uncomplicated
CPT/HCPCS: 71046; 80053; 81003; 83690; 85025; 87400

== ENCOUNTER 2018-12-05 21:19 | Inpatient (IN) | payer MEDICARE, OTHER ==
[~2018-12-05] VITALS: Ht 157.5 cm; Wt 74.1 kg
[~2018-12-05 21:19] MED LIST changes: +D-ME473S2 PO; +IBUP-1561 PO; +ONDA8TAB14 PO
[2018-12-05 21:24] VITALS: Ht 157.5 cm; Wt 74.1 kg
[2018-12-05] MEDS ORDERED: ONDANSETRON 4 MG INJ IV STA (22:16)
[2018-12-05] MEDS ORDERED: SOD CHLORIDE 0.9% 1,000 ML IV STA (22:16)
[2018-12-05] MEDS ORDERED: morphine 4 MG/ML VIAL IV STA (22:16)
--- NOTE | 2018-12-05 22:40 | ERD ---
ER Documentation Chief Complaint Chief Complaint C/O MEDIAL AP AND VOMITING X4 HRS, HX ABDOMINAL HERNIA HPI 68-year-old male presenting with severe abdominal pain for the past 4 hours. The pain is in the center of his abdomen, aching, 10 out of 10,nonradiating, constant, with associated nonbloody and nonbilious vomiting. No alleviating or exacerbating factors. He has been having normal bowel movements without any melena or hematochezia. Last bowel movement was today. No associated fevers or chills. He does state that he has a history of multiple abdominal surgeries with an abdominal hernia. The site of his pain is where his hernia is. ROS All systems reviewed and are negative except as per history of present illness. Medications Home Meds Active Scripts Ibuprofen* (Motrin*) 400 Mg Tab, 400 MG PO Q6H PRN for PAIN AND OR ELEVATED TEMP, #30 TAB Prov:SAVI HAMM 08/12/18 Dextromethorphan Hb-Promethazine Hcl* (Promethazine DM* Syrup) 473 Ml Syrup, 5 ML PO Q6 PRN for COUGH, #4 OZ Prov:SAVI HAMM 08/12/18 Ondansetron (Ondansetron Odt) 8 Mg Tab.rapdis, 8 MG PO Q6H PRN for NAUSEA AND/OR VOMITING, #10 TAB Prov:SAVI HAMM 08/12/18 Reported Medications Methotrexate* (Methotrexate*) 2.5 Mg Tab, 20 MG PO Q7D, TAB 07/14/18 Ondansetron Hcl* (Zofran*) 8 Mg Tab, 8 MG PO Q8, TAB 07/14/18 Docusate Sodium* (Stool Softener*) 100 Mg Capsule, 100 MG PO TID, CAP 07/14/18 [place]-3 Fatty Acids/Fish Oil ([place] 3 1,000 mg Softgel) 1 Each Capsule, 1 EACH PO BID, CAP 07/14/18 Meloxicam* (Mobic*) 15 Mg Tablet, 15 MG PO DAILY, #30 TAB 07/14/18 Omeprazole* (Omeprazole*) 20 Mg Capsule.dr, 20 MG PO DAILY, #30 CAP 07/14/18 Allergies Allergies: Coded Allergies: No Known Allergies (Verified Allergy, Unknown, 07/20/18) PMhx/Soc History of Surgery: Yes (Hip, Biliary Stent Placement, cholecystectomy, ex lap for unclear reason(sounds like it was for bowel obstruction)) Anesthesia Reaction: No Hx Neurological Disorder: No Hx Respiratory Disorders: Yes (Asthma) Hx Cardiac Disorders: No Hx Psychiatric Problems: No Hx Miscellaneous Medical Probl: No Hx Alcohol Use: Yes (Occasional) Hx Substance Use: No Hx Tobacco Use: No FmHx Family History: No diabetes Physical Exam Vitals Vital Signs Date Temp Pulse Resp B/P (MAP) Pulse Ox O2 O2 Flow FiO2 Time Delivery Rate 12/06/18 50 18 152/64 100 Nasal 3.0 01:48 (93) Cannula 12/05/18 52 16 124/61 100 Nasal 3.0 23:56 (82) Cannula 12/05/18 55 16 148/66 100 Nasal 3.0 22:53 (93) Cannula 12/05/18 98.7 72 22 162/78 99 21:24 (106) Physical Exam Const: Moaning in significant distress secondary to pain. No diaphoresis. Nontoxic Head: Atraumatic Eyes: Normal Conjunctiva ENT: Normal External Ears, Nose and Mouth. Neck: Full range of motion. No meningismus. Resp: Clear to auscultation bilaterally Cardio: Regular rate and rhythm, no murmurs Abd: Midline well-healed abdominal scar. No evidence of incarcerated hernia. Soft, non distended. Tender in the area of an abdominal wall defect left of the midline surgical scar. no peritoneal signs. Normal bowel sounds Skin: No petechiae or rashes Back: No midline or flank tenderness Ext: No cyanosis, or edema Neur: Awake and alert Psych: Normal Mood and Affect Result Diagram: 12/05/18221612/05/187 Results 24 hrs Laboratory Tests Test 12/05/18 22:17 12/05/18 23:30 White Blood Count 10.1 10^3/ul Red Blood Count 4.53 10^6/ul Hemoglobin 12.1 g/dl Hematocrit 37.3 % Mean Corpuscular Volume 82.3 fl Mean Corpuscular Hemoglobin 26.7 pg Mean Corpuscular Hemoglobin Concent 32.4 g/dl Red Cell Distribution Width 17.6 % Platelet Count 180 10^3/UL Mean Platelet Volume 9.7 fl Immature Granulocytes % 0.300 % Neutrophils % 73.3 % Lymphocytes % 15.0 % Monocytes % 10.4 % Eosinophils % 0.7 % Basophils % 0.3 % Nucleated Red Blood Cells % 0.0 /100WBC Immature Granulocytes # 0.030 10^3/ul Neutrophils # 7.4 10^3/ul Lymphocytes # 1.5 10^3/ul Monocytes # 1.1 10^3/ul Eosinophils # 0.1 10^3/ul Basophils # 0.0 10^3/ul Nucleated Red Blood Cells # 0.0 10^3/ul Prothrombin Time 11.3 Sec Prothrombin Time Ratio 0.9 INR International Normalized Ratio 0.81 Activated Partial Thromboplast Time 24.7 Sec Sodium Level 140 mmol/L Potassium Level 3.3 mmol/L Chloride Level 105 mmol/L Carbon Dioxide Level 25 mmol/L Anion Gap 10 Blood Urea Nitrogen 19 mg/dl Creatinine 0.83 mg/dl Est Glomerular Filtrat Rate mL/min > 60 mL/min Glucose Level 125 mg/dl Calcium Level 9.0 mg/dl Total Bilirubin 0.5 mg/dl Direct Bilirubin 0.00 mg/dl Indirect Bilirubin 0.5 mg/dl Aspartate Amino Transf (AST/SGOT) 30 IU/L Alanine Aminotransferase (ALT/SGPT) 24 IU/L Alkaline Phosphatase 104 IU/L Total Protein 8.0 g/dl Albumin 4.4 g/dl Globulin 3.60 g/dl Albumin/Globulin Ratio 1.22 Lipase 69 U/L Urine Color IVÁN Urine Clarity SLIGHTLY CLOUDY Urine pH 5.0 Urine Specific [place] 1.029 Urine Ketones 1+ mg/dL Urine Nitrite NEGATIVE mg/dL Urine Bilirubin NEGATIVE mg/dL Urine Urobilinogen NEGATIVE mg/dL Urine Leukocyte Esterase NEGATIVE Stevo/ul Urine Microscopic RBC 3 /HPF Urine Microscopic WBC 1 /HPF Urine Mucus MODERATE /HPF Urine Hemoglobin NEGATIVE mg/dL Urine Glucose NEGATIVE mg/dL Urine Total Protein NEGATIVE mg/dl Current Medications Medications Dose Sig/Karoline Start Time Status Last (Trade) Ordered Route PRN Stop Time Admin Dose Reason Admin Sodium 1,000 ml @ Q1H STAT 12/05/18 DC 12/05/18 Chloride 1,000 mls/hr IV 22:16 12/05/18 22:25 23:15 Morphine 6 mg ONCE STAT 12/05/18 DC 12/05/18 Sulfate IV 22:16 12/05/18 22:26 (morphine) 22:18 Ondansetron 4 mg ONCE STAT 12/05/18 DC 12/05/18 HCl (Zofran IV 22:16 12/05/18 22:26 Inj) 22:18 Ondansetron 4 mg BRIDGE ORDER 12/06/18 HCl (Zofran PRN IV 01:30 12/07/18 Inj) NAUSEA/VOMITI 01:29 NG 650 mg ER BRIDGE 12/06/18 Acetaminophen PRN PO 01:30 12/07/18 (Tylenol .MILD PAIN 01:29 Tab) 1-3 OR TEMP Procedures/MDM EMERGENT LABS AND DIAGNOSTIC STUDIES: Lab Results above were reviewed and interpreted by me. CBC: no anemia or evidence of infection CMP: Mild hypokalemia. No evidence of acidosis, renal failure, hypoglycemia, liver disease, or biliary obstruction Lipase: no evidence of pancreatitis Radiology Results as interpreted by Radiology below were reviewed by Flori Mijares MD: CT Abdomen/Pelvis: IMPRESSION: 1. Mid to distal small bowel obstruction with a transition point in the pelvis likely due to an adhesion. There is upstream dilatation of loops of small bowel with mild interloop fluid. Recommend placing an enteric tube. 2. Multiple enlarged mesenteric lymph nodes in the right abdomen are new since the prior CT and some of these lymph nodes demonstrate central calcification. The appearance is concerning for metastatic carcinoid tumor. There is a small bowel anastomoses adjacent to the enlarged lymph nodes and proximal to the bowel obstruction. Recommend correlation with the medical history. Tissue may be required for definitive diagnosis. 3. Please note that in the absence of intravenous contrast the study does not evaluate the patency of the vasculature. Findings were discussed with Dr Mijares by Dr. Lissy Clemons on December 06, 2018 at 12:35 am PST. Initial Nursing notes reviewed. Previous Medical Records requested via the Electronic Health Record. EMERGENCY DEPARTMENT COURSE / MEDICAL DECISION MAKING: Patient is presenting with abdominal pain and vomiting. He was afebrile upon arrival. Labs and work-up consistent with acute small bowel obstruction. Patient was treated with IV pain medications and antiemetics with improvement of his symptoms. I discussed this with the surgeon on-call. He will be seeing the patient upon admission. At this time, there is no evidence of acute infection. Accepting Care Team: Current data and ongoing care discussed. Time: Time of admission Primary Provider: Dr. Solomon Consulting: Dr. Means with Surgery Outstanding Data: none Departure Diagnosis: Primary Impression: Small bowel obstruction Condition: Serious MIKE MIJARES MD Dec 05, 2018 22:39
[2018-12-06] MEDS ORDERED: ACETAMINOPHEN 325 MG TAB PO PRN (01:30)
[2018-12-06] MEDS ORDERED: ONDANSETRON 4 MG INJ IV PRN (01:30)
[2018-12-06 02:00] VITALS: BP 137/62; PULSE 54; RESP 18
[2018-12-06 04:40] VITALS: BP 124/62; PULSE 62; RESP 18
[2018-12-06] MEDS ORDERED: ALBUTEROL/IPRATROPIUM (NEB) 3 ML AMP HHN PRN (05:30)
[2018-12-06] MEDS ORDERED: NACL 0.9% 3 ML SYG IV SCH (05:30)
--- NOTE | 2018-12-06 05:42 | HP ---
Date/Time of Note Date/Time of Note DATE: 12/06/18 TIME: 05:38 Assessment/Plan VTE Prophylaxis Pharmacological prophylaxis: heparin Lines/Catheters IV Catheter Type (from Nrsg): Saline Lock Assessment/Plan Assessment/Plan 1. Recurrent SBO -His belly is currently soft -N.p.o. with IV fluid -NG tube to low intermittent suction -Pain meds and antiemetics as needed -Awaiting surgical eval 2. Multiple large mesenteric lymph nodes, concerning for metastatic carcinoid tumor -This is a new finding -Oncology consult 3. History of gangrenous cholecystitis, status post laparoscopic cholecystectomy (07/2018) -Patient also underwent ERCP with stent placements during same hospitalization 4. Mild hypokalemia: Replete Result Diagram: 12/05/187 12/05/187 Results 24hrs Laboratory Tests Test 12/05/18 22:17 12/05/18 23:30 12/06/18 05:25 White Blood Count 10.1 # Pending Red Blood Count 4.53 #L Pending Hemoglobin 12.1 #L Pending Hematocrit 37.3 L Pending Mean Corpuscular Volume 82.3 Pending Mean Corpuscular Hemoglobin 26.7 L Pending Mean Corpuscular 32.4 Pending Hemoglobin Concent Red Cell Distribution Width 17.6 H Pending Platelet Count 180 Pending Mean Platelet Volume 9.7 Pending Immature Granulocytes % 0.300 Neutrophils % 73.3 Lymphocytes % 15.0 Monocytes % 10.4 Eosinophils % 0.7 Basophils % 0.3 Nucleated Red Blood Cells % 0.0 Immature Granulocytes # 0.030 Neutrophils # 7.4 Lymphocytes # 1.5 Monocytes # 1.1 H Eosinophils # 0.1 Basophils # 0.0 Nucleated Red Blood Cells # 0.0 Prothrombin Time 11.3 #L Prothrombin Time Ratio 0.9 INR International 0.81 Normalized Ratio Activated Partial Thromboplast 24.7 Time Sodium Level 140 Potassium Level 3.3 L Chloride Level 105 Carbon Dioxide Level 25 Anion Gap 10 Blood Urea Nitrogen 19 Creatinine 0.83 Est Glomerular Filtrat > 60 Rate mL/min Glucose Level 125 Calcium Level 9.0 Total Bilirubin 0.5 Direct Bilirubin 0.00 Indirect Bilirubin 0.5 Aspartate Amino 30 Transf (AST/SGOT) Alanine 24 Aminotransferase (ALT/SGPT) Alkaline Phosphatase 104 Total Protein 8.0 Albumin 4.4 Globulin 3.60 H Albumin/Globulin Ratio 1.22 Lipase 69 Urine Color IVÁN Urine Clarity SLIGHTLY CLOUDY A Urine pH 5.0 Urine Specific [place] 1.029 Urine Ketones 1+ H Urine Nitrite NEGATIVE Urine Bilirubin NEGATIVE Urine Urobilinogen NEGATIVE Urine Leukocyte Esterase NEGATIVE Urine Microscopic RBC 3 Urine Microscopic WBC 1 Urine Mucus MODERATE Urine Hemoglobin NEGATIVE Urine Glucose NEGATIVE Urine Total Protein NEGATIVE HPI/ROS Admit Date/Time Admit Date/Time Dec 06, 2018 at 01:04 Hx of Present Illness Patient is a 68-year-old male with recurrent small bowel obstruction, gangrenous cholecystitis status post laparoscopic cholecystectomy (07/2018). Patient presented to ER complaining of abdominal pain and vomiting x1 day. Abdominal pain is mainly located in the left lower quadrant area, vomiting is nonbloody. Last bowel movement was yesterday morning. CT in the ER shows SBO as well as a new finding of large multiple mesenteric lymph nodes concerning for metastatic carcinoid tumor. Patient was admitted here in July of this year where she underwent laparoscopic cholecystectomy with a finding of gangrenous cholecystitis. She also underwent ERCP was stent placement. During hospitalization, there was concern for perforated and as such the patient at that time was transferred to [facility]. Patient thinks that the stent that was placed it was removed at [facility]. PMH/Family/Social Past Medical History Medical History: other (See HPI) Medications Current Medications Ondansetron HCl (Zofran Inj) 4 mg BRIDGE ORDER PRN IV NAUSEA/VOMITING; Start 12/06/18 at 01:30; Stop 12/07/18 at 01:29 Acetaminophen (Tylenol Tab) 650 mg ER BRIDGE PRN PO .MILD PAIN 1-3 OR TEMP; Start 12/06/18 at 01:30; Stop 12/07/18 at 01:29 Dextrose/Sodium Chloride 1,000 ml @ 100 mls/hr Q10H IV ; Start 12/06/18 at 05:18 IV Flush (NS 3 ml) 3 ml PER PROTOCOL IV ; Start 12/06/18 at 05:30 Ondansetron HCl (Zofran Inj) 4 mg Q6H PRN IV NAUSEA/VOMITING; Start 12/06/18 at 05:30 Morphine Sulfate (morphine) 2 mg Q4H PRN IV .SEVERE PAIN 7-10; Start 12/06/18 at 05:30 Famotidine (Pepcid Iv) 20 mg Q12 IV ; Start 12/06/18 at 09:00 Albuterol/ Ipratropium (Duoneb) 3 ml Q2H RESP THERAPY PRN HHN SHORTNESS OF BREATH; Start 12/06/18 at 05:30 Potassium Chloride 100 ml @ 50 mls/hr ONCE ONCE IVPB ; Start 12/06/18 at 06:00; Stop 12/06/18 at 07:59; Status UNV Coded Allergies: No Known Allergies (Unverified Allergy, Unknown, 12/06/18) Past Surgical History Past Surgical Hx: other Family History Significant Family History: no pertinent family hx Social History Alcohol Use: none Smoking Status: Never smoker Drug Use: none Exam/Review of Systems Vital Signs Vitals Vital Signs Date Temp Pulse Resp B/P (MAP) Pulse Ox O2 O2 Flow FiO2 Time Delivery Rate 12/06/18 98.0 47 22 152/61 100 Nasal 3.0 03:58 (91) Cannula Intake and Output 12/05/18 12/05/18 12/06/18 1515:00 23:00 07:00 IntakeIntake Total 1000 ml BalanceBalance 1000 ml Exam Constitutional: other (No acute distress) Head: normocephalic, atraumatic Eyes: EOMI, PERRL Respiratory: clear to auscultation, normal air movement Cardiovascular: regular rate and rhythm Gastrointestinal: soft Extremities: normal pulses SAVI JORGE MD Dec 06, 2018 05:42
[2018-12-06] MEDS: DEXTROSE 5%-0.45% NACL 1,000 ML IV SCH ×2 (05:47→18:19)
[2018-12-06] MEDS: morphine 2 MG INJ IV PRN ×4 (05:47→22:27)
[2018-12-06] MEDS ORDERED: POTASSIUM CHLORIDE 100 ML IVPB ONE (07:00)
[2018-12-06 08:24] VITALS: BP 135/63; PULSE 48; RESP 16
[2018-12-06] MEDS: FAMOTIDINE 20 MG INJ IV SCH ×2 (09:37→20:13)
[2018-12-06] MEDS: ONDANSETRON 4 MG INJ IV PRN ×2 (10:40→22:27)
--- NOTE | 2018-12-06 10:59 | PN ---
Date/Time of Note Date/Time of Note DATE: 12/06/18 TIME: 10:56 Assessment/Plan VTE Prophylaxis Risk score (from Ns)>0 risk: 3 SCD applied (from Ns): Yes Pharmacological prophylaxis: NA/contraindicated Pharm contraindication: surgical contra Lines/Catheters IV C[facility] Type (from [facility] Peripheral IV Assessment/Plan Hospital Course SUBJECTIVE: Denies any abdominal pain at this time. OBJECTIVE: Physical Exam General: Adequately build 68 year-old male lying in bed in no apparent distress. HEENT: Normocephalic, atraumatic. Eyes: Anicteric sclerae, conjunctivae clear. ENT: Nasal septum midline, oral mucosa is dry. Neck supple, no JVD noticed. Respiratory: Bilaterally diminished breath sounds. No use of accessory muscles of respiration. No adventitious breath sounds. Cardiovascular: S1, S2 heard. Regular rate and rhythm. Systolic murmur. Abdomen: Soft and nondistended. Surgical scar from prior surgery. Genitourinary: Deferred. Extremities: No cyanosis, no clubbing, no edema. Peripheral pulses palpable. Neurologic: Cranial nerves II through XII grossly intact. The patient is awake, alert, and oriented. Skin: Normal skin turgor. No skin rashes. Labs & Vitals per chart ASSESSMENT & PLAN This is a 68-year-old male with past medical history of multiple abdominal surgeries with prior history of small bowel obstruction, cholelithiasis, and psoriasis who came to the emergency room with chief complaint of abdominal pain and constipation with CT scan showing recurrent small bowel obstruction with transition at the small bowel anastomosis in the right abdomen. Therefore, the patient was admitted to inpatient setting for further treatment and evaluation. 1. Recurrent small bowel obstruction. -Continue NGT decompression. -Being followed by general surgery. 2. Normocytic anemia. -Monitor H&H closely. 3. Psoriasis. -Methotrexate on hold. 4. Fluids, electrolytes, and nutrition. -NPO. -IVFs. 5. DVT prophylaxis -Bilateral SCDs. 6. Plan. -Continue n.p.o. -Continue NGT decompression. -Await further surgical recommendations. The patient was seen in collaboration with Dr. Balderas. Result Diagram: 12/06/18 0525 12/06/18 0525 Results 24hrs Laboratory Tests Test 12/05/18 22:17 12/05/18 23:30 12/06/18 05:25 White Blood Count 10.1 # 8.6 Red Blood Count 4.53 #L 4.17 L Hemoglobin 12.1 #L 11.1 L Hematocrit 37.3 L 35.1 L Mean Corpuscular Volume 82.3 84.2 Mean Corpuscular Hemoglobin 26.7 L 26.6 L Mean Corpuscular 32.4 31.6 L Hemoglobin Concent Red Cell Distribution Width 17.6 H 18.0 H Platelet Count 180 156 Mean Platelet Volume 9.7 9.5 Immature Granulocytes % 0.300 0.400 Neutrophils % 73.3 73.3 Lymphocytes % 15.0 15.9 Monocytes % 10.4 9.2 Eosinophils % 0.7 0.8 Basophils % 0.3 0.4 Nucleated Red Blood Cells % 0.0 0.0 Immature Granulocytes # 0.030 0.030 Neutrophils # 7.4 6.3 Lymphocytes # 1.5 1.4 Monocytes # 1.1 H 0.8 Eosinophils # 0.1 0.1 Basophils # 0.0 0.0 Nucleated Red Blood Cells # 0.0 0.0 Prothrombin Time 11.3 #L Prothrombin Time Ratio 0.9 INR International 0.81 Normalized Ratio Activated Partial Thromboplast 24.7 Time Sodium Level 140 143 Potassium Level 3.3 L 4.0 Chloride Level 105 109 Carbon Dioxide Level 25 29 Anion Gap 10 5 Blood Urea Nitrogen 19 17 Creatinine 0.83 0.66 Est Glomerular Filtrat > 60 > 60 Rate mL/min Glucose Level 125 118 Calcium Level 9.0 8.0 L Total Bilirubin 0.5 0.6 Direct Bilirubin 0.00 0.00 Indirect Bilirubin 0.5 0.6 Aspartate Amino 30 26 Transf (AST/SGOT) Alanine 24 23 Aminotransferase (ALT/SGPT) Alkaline Phosphatase 104 76 Total Protein 8.0 6.8 # Albumin 4.4 3.7 Globulin 3.60 H 3.10 Albumin/Globulin Ratio 1.22 1.19 Lipase 69 Urine Color IVÁN Urine Clarity SLIGHTLY CLOUDY A Urine pH 5.0 Urine Specific [place] 1.029 Urine Ketones 1+ H Urine Nitrite NEGATIVE Urine Bilirubin NEGATIVE Urine Urobilinogen NEGATIVE Urine Leukocyte Esterase NEGATIVE Urine Microscopic RBC 3 Urine Microscopic WBC 1 Urine Mucus MODERATE Urine Hemoglobin NEGATIVE Urine Glucose NEGATIVE Urine Total Protein NEGATIVE Exam/Review of Systems Exam Vitals Vital Signs Date Temp Pulse Resp B/P (MAP) Pulse Ox O2 O2 Flow FiO2 Time Delivery Rate 7/2/19 97.9 48 16 135/63 98 08:24 (87) 12/06/18 Nasal 3.0 03:58 Cannula Intake and Output 12/05/18 12/05/18 12/06/18 1515:00 23:00 07:00 IntakeIntake Total 1000 ml BalanceBalance 1000 ml Results Results 24hrs Laboratory Tests Test 12/05/18 22:17 12/05/18 23:30 12/06/18 05:25 White Blood Count 10.1 # 8.6 Red Blood Count 4.53 #L 4.17 L Hemoglobin 12.1 #L 11.1 L Hematocrit 37.3 L 35.1 L Mean Corpuscular Volume 82.3 84.2 Mean Corpuscular Hemoglobin 26.7 L 26.6 L Mean Corpuscular 32.4 31.6 L Hemoglobin Concent Red Cell Distribution Width 17.6 H 18.0 H Platelet Count 180 156 Mean Platelet Volume 9.7 9.5 Immature Granulocytes % 0.300 0.400 Neutrophils % 73.3 73.3 Lymphocytes % 15.0 15.9 Monocytes % 10.4 9.2 Eosinophils % 0.7 0.8 Basophils % 0.3 0.4 Nucleated Red Blood Cells % 0.0 0.0 Immature Granulocytes # 0.030 0.030 Neutrophils # 7.4 6.3 Lymphocytes # 1.5 1.4 Monocytes # 1.1 H 0.8 Eosinophils # 0.1 0.1 Basophils # 0.0 0.0 Nucleated Red Blood Cells # 0.0 0.0 Prothrombin Time 11.3 #L Prothrombin Time Ratio 0.9 INR International 0.81 Normalized Ratio Activated Partial Thromboplast 24.7 Time Sodium Level 140 143 Potassium Level 3.3 L 4.0 Chloride Level 105 109 Carbon Dioxide Level 25 29 Anion Gap 10 5 Blood Urea Nitrogen 19 17 Creatinine 0.83 0.66 Est Glomerular Filtrat > 60 > 60 Rate mL/min Glucose Level 125 118 Calcium Level 9.0 8.0 L Total Bilirubin 0.5 0.6 Direct Bilirubin 0.00 0.00 Indirect Bilirubin 0.5 0.6 Aspartate Amino 30 26 Transf (AST/SGOT) Alanine 24 23 Aminotransferase (ALT/SGPT) Alkaline Phosphatase 104 76 Total Protein 8.0 6.8 # Albumin 4.4 3.7 Globulin 3.60 H 3.10 Albumin/Globulin Ratio 1.22 1.19 Lipase 69 Urine Color IVÁN Urine Clarity SLIGHTLY CLOUDY A Urine pH 5.0 Urine Specific [place] 1.029 Urine Ketones 1+ H Urine Nitrite NEGATIVE Urine Bilirubin NEGATIVE Urine Urobilinogen NEGATIVE Urine Leukocyte Esterase NEGATIVE Urine Microscopic RBC 3 Urine Microscopic WBC 1 Urine Mucus MODERATE Urine Hemoglobin NEGATIVE Urine Glucose NEGATIVE Urine Total Protein NEGATIVE Medications Medication Current Medications Ondansetron HCl (Zofran Inj) 4 mg BRIDGE ORDER PRN IV NAUSEA/VOMITING; Start 12/06/18 at 01:30; Stop 12/07/18 at 01:29 Acetaminophen (Tylenol Tab) 650 mg ER BRIDGE PRN PO .MILD PAIN 1-3 OR TEMP; Start 12/06/18 at 01:30; Stop 12/07/18 at 01:29 Dextrose/Sodium Chloride 1,000 ml @ 100 mls/hr Q10H IV Last administered on 12/06/18at 05:47; Admin Dose 100 MLS/HR; Start 12/06/18 at 05:18 IV Flush (NS 3 ml) 3 ml PER PROTOCOL IV ; Start 12/06/18 at 05:30 Ondansetron HCl (Zofran Inj) 4 mg Q6H PRN IV NAUSEA/VOMITING Last administered on 12/06/18at 10:40; Admin Dose 4 MG; Start 12/06/18 at 05:30 Morphine Sulfate (morphine) 2 mg Q4H PRN IV .SEVERE PAIN 7-10 Last administered on 12/06/18at 10:40; Admin Dose 2 MG; Start 12/06/18 at 05:30 Famotidine (Pepcid Iv) 20 mg Q12 IV Last administered on 12/06/18at 09:37; Admin Dose 20 MG; Start 12/06/18 at 09:00 Albuterol/ Ipratropium (Duoneb) 3 ml Q2H RESP THERAPY PRN HHN SHORTNESS OF BREATH; Start 12/06/18 at 05:30 ANDREEA HANSON NP Dec 06, 2018 10:59
[2018-12-06 14:00] VITALS: BP 122/66; PULSE 55; RESP 22
--- NOTE | 2018-12-06 18:08 | CONS ---
Assessment/Plan Assessment/Plan Hospital Course (Demo Recall) And was admitted with NG tube, feels significant relief. Assessment/Plan (Daily) Resolving small bowel obstruction. Continue NG suction. Await bowel movement. Consultation Date/Type/Reason Admit Date/Time Dec 06, 2018 at 01:04 Date of Consultation: Dec 06, 2018 Type of Consult Surgical Reason for Consultation Small bowel obstruction Date/Time of Note DATE: 12/06/18 TIME: 18:06 Hx of Present Illness 68-year-old male presenting with severe abdominal pain for the past 4 hours. The pain is in the center of his abdomen, aching, 10 out of 10,nonradiating, constant, with associated nonbloody and nonbilious vomiting. No alleviating or exacerbating factors. He has been having normal bowel movements without any melena or hematochezia. Last bowel movement was today. No associated fevers or chills. He does state that he has a history of multiple abdominal surgeries with an abdominal hernia. The site of his pain is where his hernia is. Post admission patient felt relief. Dated he had flatus since he was admitted from the emergency room. Patient describes pain currently is very mild. NG tube drains minimal amount of clear gastric juice. Constitutional: no complaints, improved Eyes: no complaints ENT: no complaints Respiratory: no complaints Cardiovascular: no complaints Gastrointestinal: pain, nausea, vomiting Genitourinary: no complaints Musculoskeletal: no complaints Skin: no complaints Neurologic: no complaints Endocrine: no complaints Lymphatic: no complaints Psychological: no complaints, nl mood/affect Immunologic: no complaints Past Medical History Medical History: other (See HPI) Home Meds Reported Medications Methotrexate* (Methotrexate*) 2.5 Mg Tab, 20 MG PO Q7D, TAB 07/14/18 Discontinued Reported Medications Ondansetron Hcl* (Zofran*) 8 Mg Tab, 8 MG PO Q8, TAB 07/14/18 Docusate Sodium* (Stool Softener*) 100 Mg Capsule, 100 MG PO TID, CAP 07/14/18 [place]-3 Fatty Acids/Fish Oil ([place] 3 1,000 mg Softgel) 1 Each Capsule, 1 EACH PO BID, CAP 07/14/18 Meloxicam* (Mobic*) 15 Mg Tablet, 15 MG PO DAILY, #30 TAB 07/14/18 Omeprazole* (Omeprazole*) 20 Mg Capsule.dr, 20 MG PO DAILY, #30 CAP 07/14/18 Discontinued Scripts Ibuprofen* (Motrin*) 400 Mg Tab, 400 MG PO Q6H PRN for PAIN AND OR ELEVATED TEMP, #30 TAB Prov:SAVI HAMM 08/12/18 Dextromethorphan Hb-Promethazine Hcl* (Promethazine DM* Syrup) 473 Ml Syrup, 5 ML PO Q6 PRN for COUGH, #4 OZ Prov:SAVI HAMM 08/12/18 Ondansetron (Ondansetron Odt) 8 Mg Tab.rapdis, 8 MG PO Q6H PRN for NAUSEA AND/OR VOMITING, #10 TAB Prov:SAVI HAMM 08/12/18 Medications Current Medications Acetaminophen (Tylenol Tab) 650 mg ER BRIDGE PRN PO .MILD PAIN 1-3 OR TEMP; Start 12/06/18 at 01:30; Stop 12/07/18 at 01:29 Dextrose/Sodium Chloride 1,000 ml @ 100 mls/hr Q10H IV Last administered on 12/06/18at 05:47; Admin Dose 100 MLS/HR; Start 12/06/18 at 05:18 IV Flush (NS 3 ml) 3 ml PER PROTOCOL IV ; Start 12/06/18 at 05:30 Ondansetron HCl (Zofran Inj) 4 mg Q6H PRN IV NAUSEA/VOMITING Last administered on 12/06/18at 10:40; Admin Dose 4 MG; Start 12/06/18 at 05:30 Morphine Sulfate (morphine) 2 mg Q4H PRN IV .SEVERE PAIN 7-10 Last administered on 12/06/18at 10:40; Admin Dose 2 MG; Start 12/06/18 at 05:30 Famotidine (Pepcid Iv) 20 mg Q12 IV Last administered on 12/06/18at 09:37; Admin Dose 20 MG; Start 12/06/18 at 09:00 Albuterol/ Ipratropium (Duoneb) 3 ml Q2H RESP THERAPY PRN HHN SHORTNESS OF BREATH; Start 12/06/18 at 05:30 Allergies: Coded Allergies: No Known Allergies (Unverified Allergy, Unknown, 12/06/18) Past Surgical History Past Surgical Hx: other (Small bowel resection, no details.) Social History Alcohol Use: none Smoking Status: Former smoker Drug Use: none Exam/Review of Systems Exam Vitals Vital Signs Date Temp Pulse Resp B/P (MAP) Pulse Ox O2 O2 Flow FiO2 Time Delivery Rate 12/06/18 97.7 55 22 122/66 98 14:00 (84) 12/06/18 Nasal 3.0 03:58 Cannula Intake and Output 12/05/18 12/05/18 12/06/18 1414:59 22:59 06:59 IntakeIntake Total 1000 ml BalanceBalance 1000 ml Constitutional: alert, oriented, well developed Psych: no complaints, nl mood/affect Head: normocephalic, atraumatic Eyes: nl conjunctiva, EOMI, nl lids, nl sclera, PERRL ENMT: nl external ears & nose, nl lips & teeth, nl nasal mucosa & septum Neck: supple, non-tender Respiratory: clear to auscultation, normal air movement Cardiovascular: regular rate and rhythm, nl pulses Gastrointestinal: soft, nl liver, spleen, non-tender, other (No evidence of incarcerated hernia.) Musculoskeletal: nl extremities to inspection, nl gait and stance Extremities: normal pulses Neurological: [employer] II-XII intact, nl mental status, nl speech, nl strength Skin: nl turgor; No rash or lesions Lymph: nl lymph nodes Results Result Diagram: 12/06/1852412/06/18 0525 Results 24hrs Laboratory Tests Test 12/05/18 22:17 12/05/18 23:30 12/06/18 05:25 White Blood Count 10.1 # 8.6 Red Blood Count 4.53 #L 4.17 L Hemoglobin 12.1 #L 11.1 L Hematocrit 37.3 L 35.1 L Mean Corpuscular Volume 82.3 84.2 Mean Corpuscular Hemoglobin 26.7 L 26.6 L Mean Corpuscular 32.4 31.6 L Hemoglobin Concent Red Cell Distribution Width 17.6 H 18.0 H Platelet Count 180 156 Mean Platelet Volume 9.7 9.5 Immature Granulocytes % 0.300 0.400 Neutrophils % 73.3 73.3 Lymphocytes % 15.0 15.9 Monocytes % 10.4 9.2 Eosinophils % 0.7 0.8 Basophils % 0.3 0.4 Nucleated Red Blood Cells % 0.0 0.0 Immature Granulocytes # 0.030 0.030 Neutrophils # 7.4 6.3 Lymphocytes # 1.5 1.4 Monocytes # 1.1 H 0.8 Eosinophils # 0.1 0.1 Basophils # 0.0 0.0 Nucleated Red Blood Cells # 0.0 0.0 Prothrombin Time 11.3 #L Prothrombin Time Ratio 0.9 INR International 0.81 Normalized Ratio Activated Partial Thromboplast 24.7 Time Sodium Level 140 143 Potassium Level 3.3 L 4.0 Chloride Level 105 109 Carbon Dioxide Level 25 29 Anion Gap 10 5 Blood Urea Nitrogen 19 17 Creatinine 0.83 0.66 Est Glomerular Filtrat > 60 > 60 Rate mL/min Glucose Level 125 118 Calcium Level 9.0 8.0 L Total Bilirubin 0.5 0.6 Direct Bilirubin 0.00 0.00 Indirect Bilirubin 0.5 0.6 Aspartate Amino 30 26 Transf (AST/SGOT) Alanine 24 23 Aminotransferase (ALT/SGPT) Alkaline Phosphatase 104 76 Total Protein 8.0 6.8 # Albumin 4.4 3.7 Globulin 3.60 H 3.10 Albumin/Globulin Ratio 1.22 1.19 Lipase 69 Urine Color IVÁN Urine Clarity SLIGHTLY CLOUDY A Urine pH 5.0 Urine Specific [place] 1.029 Urine Ketones 1+ H Urine Nitrite NEGATIVE Urine Bilirubin NEGATIVE Urine Urobilinogen NEGATIVE Urine Leukocyte Esterase NEGATIVE Urine Microscopic RBC 3 Urine Microscopic WBC 1 Urine Mucus MODERATE Urine Hemoglobin NEGATIVE Urine Glucose NEGATIVE Urine Total Protein NEGATIVE Medications Medication Current Medications Acetaminophen (Tylenol Tab) 650 mg ER BRIDGE PRN PO .MILD PAIN 1-3 OR TEMP; Start 12/06/18 at 01:30; Stop 12/07/18 at 01:29 Dextrose/Sodium Chloride 1,000 ml @ 100 mls/hr Q10H IV Last administered on 12/06/18at 05:47; Admin Dose 100 MLS/HR; Start 12/06/18 at 05:18 IV Flush (NS 3 ml) 3 ml PER PROTOCOL IV ; Start 12/06/18 at 05:30 Ondansetron HCl (Zofran Inj) 4 mg Q6H PRN IV NAUSEA/VOMITING Last administered on 12/06/18at 10:40; Admin Dose 4 MG; Start 12/06/18 at 05:30 Morphine Sulfate (morphine) 2 mg Q4H PRN IV .SEVERE PAIN 7-10 Last administered on 12/06/18at 10:40; Admin Dose 2 MG; Start 12/06/18 at 05:30 Famotidine (Pepcid Iv) 20 mg Q12 IV Last administered on 12/06/18at 09:37; Admin Dose 20 MG; Start 12/06/18 at 09:00 Albuterol/ Ipratropium (Duoneb) 3 ml Q2H RESP THERAPY PRN HHN SHORTNESS OF BREATH; Start 12/06/18 at 05:30 LORETTA BIGGS MD Dec 06, 2018 18:08
[2018-12-06] MEDS ORDERED: ACETAMINOPHEN 1000MG/100ML IV 100 ML IVPB PRN (23:00)
[2018-12-07] MEDS: DEXTROSE 5%-0.45% NACL 1,000 ML IV SCH ×3 (01:18→15:17)
[2018-12-07 02:00] VITALS: BP 111/56; PULSE 56; RESP 18
[2018-12-07 08:00] VITALS: BP 122/58; PULSE 48; RESP 16
[2018-12-07] MEDS: FAMOTIDINE 20 MG INJ IV SCH ×2 (08:19→21:29)
[2018-12-07] MEDS: ONDANSETRON 4 MG INJ IV PRN ×3 (08:22→21:30)
[2018-12-07 14:00] VITALS: BP 146/65; PULSE 54; RESP 14
[2018-12-07] MEDS: morphine 2 MG INJ IV PRN (15:21)
--- NOTE | 2018-12-07 15:51 | PN ---
Date/Time of Note Date/Time of Note DATE: 12/07/18 TIME: 15:48 Assessment/Plan Lines/Catheters IV [facility] Type (from [facility]): Peripheral IV Assessment/Plan Chief Complaint/Hosp Course Patient is admitted for small bowel obstruction, most probably due to adhesions from previous surgery. Assessment/Plan Continue NG suction, and n.p.o., await bowel function to feed. Subjective 24 Hr Interval Summary Patient is day first of admission with small bowel obstruction. Denied nausea and vomiting, patient has a NG tube and the output of the NG tube is not recorded. Patient remains afebrile, vital signs stable, not tachycardic. Feels comfortable. Patient noticed that he passed gas this morning. Constitutional: improved Feeding: NPO Pain Control: mild Exam/Review of Systems Vital Signs Vitals Vital Signs Date Temp Pulse Resp B/P (MAP) Pulse Ox O2 O2 Flow FiO2 Time Delivery Rate 12/07/18 97.8 54 14 146/65 97 14:00 (92) 12/06/18 Nasal 3.0 03:58 Cannula Intake and Output 12/06/18 12/06/18 12/07/18 1515:00 23:00 07:00 IntakeIntake Total 100 ml 1000 ml 900 ml OutputOutput Total 300 ml 400 ml BalanceBalance 100 ml 700 ml 500 ml Exam Gastrointestinal: other (Abdomen is soft not distended not tender.) Results Result Diagram: 12/07/18 0543 12/07/18 0542 LORETTA BIGGS MD Dec 07, 2018 15:51
--- NOTE | 2018-12-07 18:55 | PN ---
Date/Time of Note Date/Time of Note DATE: 12/07/18 TIME: 18:51 Assessment/Plan VTE Prophylaxis Risk score (from Nsg)>0 risk: 3 SCD applied (from Nsg): Yes SCD contraindicated: low risk/ambulating Pharmacological prophylaxis: LMWH Lines/Catheters IV Catheter Type (from Nrsg): Peripheral IV Assessment/Plan Hospital Course Assessment and plan 1. Small bowel obstruction, KUB noted. Stable continue NG/n.p.o. 2. Adhesions? H/o possible ex lap at [facility] [phone] for possible perforated viscusobstruction? H/o Recurrent sbo. 3. Cholecystectomy status 5 mnths ago. Required transfer to [facility] for tertiary opinion and possible stent biliary tract injury 4. Past tobacco 5. Psoriasis on methotrexate? 6. 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 Total hip replacement status 8. Anemia stable observe Objective: No distress. Objective: Vital signs stable Physical exam No pallor or icterus Regular Clear Bowel sounds diminished mild tender nondistended no RG No edema Result Diagram: 12/07/18 0543 12/07/18 0542 Results 24hrs Laboratory Tests Test 12/07/18 05:42 12/07/18 05:43 Sodium Level 140 Potassium Level 4.7 Chloride Level 108 Carbon Dioxide Level 30 Anion Gap 2 L Blood Urea Nitrogen 10 Creatinine 0.70 Est Glomerular Filtrat Rate mL/min > 60 Glucose Level 109 Calcium Level 7.6 L Phosphorus Level 2.5 Magnesium Level 2.0 White Blood Count 6.4 # Red Blood Count 4.12 L Hemoglobin 11.2 L Hematocrit 35.3 L Mean Corpuscular Volume 85.7 Mean Corpuscular Hemoglobin 27.2 L Mean Corpuscular Hemoglobin Concent 31.7 L Red Cell Distribution Width 18.0 H Platelet Count 152 Mean Platelet Volume 10.2 Immature Granulocytes % 0.300 Neutrophils % 65.3 Lymphocytes % 18.7 Monocytes % 13.9 H Eosinophils % 1.3 Basophils % 0.5 Nucleated Red Blood Cells % 0.0 Immature Granulocytes # 0.020 Neutrophils # 4.2 Lymphocytes # 1.2 Monocytes # 0.9 Eosinophils # 0.1 Basophils # 0.0 Nucleated Red Blood Cells # 0.0 Exam/Review of Systems Exam Vitals Vital Signs Date Temp Pulse Resp B/P (MAP) Pulse Ox O2 O2 Flow FiO2 Time Delivery Rate 12/07/18 97.8 54 14 146/65 97 14:00 (92) 12/06/18 Nasal 3.0 03:58 Cannula Intake and Output 12/06/18 12/06/18 12/07/18 1515:00 23:00 07:00 IntakeIntake Total 100 ml 1000 ml 900 ml OutputOutput Total 300 ml 400 ml BalanceBalance 100 ml 700 ml 500 ml Results Results 24hrs Laboratory Tests Test 12/07/18 05:42 12/07/18 05:43 Sodium Level 140 Potassium Level 4.7 Chloride Level 108 Carbon Dioxide Level 30 Anion Gap 2 L Blood Urea Nitrogen 10 Creatinine 0.70 Est Glomerular Filtrat Rate mL/min > 60 Glucose Level 109 Calcium Level 7.6 L Phosphorus Level 2.5 Magnesium Level 2.0 White Blood Count 6.4 # Red Blood Count 4.12 L Hemoglobin 11.2 L Hematocrit 35.3 L Mean Corpuscular Volume 85.7 Mean Corpuscular Hemoglobin 27.2 L Mean Corpuscular Hemoglobin Concent 31.7 L Red Cell Distribution Width 18.0 H Platelet Count 152 Mean Platelet Volume 10.2 Immature Granulocytes % 0.300 Neutrophils % 65.3 Lymphocytes % 18.7 Monocytes % 13.9 H Eosinophils % 1.3 Basophils % 0.5 Nucleated Red Blood Cells % 0.0 Immature Granulocytes # 0.020 Neutrophils # 4.2 Lymphocytes # 1.2 Monocytes # 0.9 Eosinophils # 0.1 Basophils # 0.0 Nucleated Red Blood Cells # 0.0 Medications Medication Current Medications Dextrose/Sodium Chloride 1,000 ml @ 100 mls/hr Q10H IV Last administered on 12/07/18at 15:17; Admin Dose 100 MLS/HR; Start 12/06/18 at 05:18 IV Flush (NS 3 ml) 3 ml PER PROTOCOL IV ; Start 12/06/18 at 05:30 Ondansetron HCl (Zofran Inj) 4 mg Q6H PRN IV NAUSEA/VOMITING Last administered on 12/07/18at 15:21; Admin Dose 4 MG; Start 12/06/18 at 05:30 Morphine Sulfate (morphine) 2 mg Q4H PRN IV .SEVERE PAIN 7-10 Last administered on 12/07/18at 15:21; Admin Dose 2 MG; Start 12/06/18 at 05:30 Famotidine (Pepcid Iv) 20 mg Q12 IV Last administered on 12/07/18at 08:19; Admin Dose 20 MG; Start 12/06/18 at 09:00 Albuterol/ Ipratropium (Duoneb) 3 ml Q2H RESP THERAPY PRN HHN SHORTNESS OF BREATH; Start 12/06/18 at 05:30 SNOU LOZA MD Dec 07, 2018 18:55
[2018-12-07 20:00] VITALS: BP 140/61; PULSE 48; RESP 17
[2018-12-07] MEDS ORDERED: ACETAMINOPHEN 1000MG/100ML IV 100 ML IVPB PRN (22:30)
[2018-12-08 02:00] VITALS: BP 123/59; PULSE 51; RESP 17
[2018-12-08] MEDS: DEXTROSE 5%-0.45% NACL 1,000 ML IV SCH ×2 (02:13→13:18)
[2018-12-08] MEDS: FAMOTIDINE 20 MG INJ IV SCH ×2 (08:04→21:03)
[2018-12-08] MEDS: ENOXAPARIN 40 MG/0.4 ML SYG SC SCH (08:05)
[2018-12-08 08:09] VITALS: BP 135/64; PULSE 50; RESP 18
[2018-12-08 14:46] VITALS: BP 131/60; PULSE 46; RESP 18
--- NOTE | 2018-12-08 14:52 | PN ---
Date/Time of Note Date/Time of Note DATE: 12/08/18 TIME: 14:51 Assessment/Plan VTE Prophylaxis Risk score (from Nsg)>0 risk: 3 SCD applied (from Nsg): Yes SCD contraindicated: low risk/ambulating Pharmacological prophylaxis: LMWH Lines/Catheters IV Catheter Type (from Nrsg): Peripheral IV Assessment/Plan Hospital Course Assessment and plan 1. Small bowel obstruction, KUB noted. Stable try diet. 2. Adhesions? H/o possible ex lap at [facility] [phone] for possible perforated viscusobstruction? H/o Recurrent sbo. 3. Cholecystectomy status 5 mnths ago. Required transfer to [facility] for tertiary opinion and possible stent biliary tract injury 4. Past tobacco 5. Psoriasis on methotrexate? 6. 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 Total hip replacement status 8. Anemia stable observe S: /3 no distress. /4: Feels better no distress. Minimal flatus. Objective: Vital signs stable Physical exam No pallor or icterus Regular Clear Bowel sounds diminished mild tender nondistended no RRG No edema Result Diagram: 12/08/18 0610 12/08/18 0610 Results 24hrs Laboratory Tests Test 12/08/18 06:10 White Blood Count 5.1 # Red Blood Count 4.46 L Hemoglobin 11.7 L Hematocrit 37.7 L Mean Corpuscular Volume 84.5 Mean Corpuscular Hemoglobin 26.2 L Mean Corpuscular Hemoglobin Concent 31.0 L Red Cell Distribution Width 17.8 H Platelet Count 158 Mean Platelet Volume 10.7 H Immature Granulocytes % 0.200 Neutrophils % 61.3 Lymphocytes % 21.8 Monocytes % 14.3 H Eosinophils % 1.8 Basophils % 0.6 Nucleated Red Blood Cells % 0.0 Immature Granulocytes # 0.010 Neutrophils # 3.1 Lymphocytes # 1.1 Monocytes # 0.7 Eosinophils # 0.1 Basophils # 0.0 Nucleated Red Blood Cells # 0.0 Prothrombin Time 12.5 Prothrombin Time Ratio 1.0 INR International Normalized Ratio 0.92 Sodium Level 141 Potassium Level 3.7 Chloride Level 108 Carbon Dioxide Level 28 Anion Gap 5 Blood Urea Nitrogen 6 L Creatinine 0.68 Est Glomerular Filtrat Rate mL/min > 60 Glucose Level 102 Calcium Level 8.0 L Phosphorus Level 2.9 Magnesium Level 1.9 Total Bilirubin 0.7 Direct Bilirubin 0.00 Indirect Bilirubin 0.7 Aspartate Amino Transf (AST/SGOT) 21 Alanine Aminotransferase (ALT/SGPT) 21 Alkaline Phosphatase 67 Total Protein 6.0 L Albumin 3.1 L Globulin 2.90 Albumin/Globulin Ratio 1.06 Exam/Review of Systems Exam Vitals Vital Signs Date Temp Pulse Resp B/P (MAP) Pulse Ox O2 O2 Flow FiO2 Time Delivery Rate 12/08/18 98.3 46 18 131/60 98 Room Air 14:46 (83) 12/06/18 3.0 03:58 Intake and Output 12/07/18 12/07/18 12/08/18 1414:59 22:59 06:59 IntakeIntake Total 1180 ml 1220 ml OutputOutput Total 900 ml 300 ml 700 ml BalanceBalance -900 ml 880 ml 520 ml Results Results 24hrs Laboratory Tests Test 12/08/18 06:10 White Blood Count 5.1 # Red Blood Count 4.46 L Hemoglobin 11.7 L Hematocrit 37.7 L Mean Corpuscular Volume 84.5 Mean Corpuscular Hemoglobin 26.2 L Mean Corpuscular Hemoglobin Concent 31.0 L Red Cell Distribution Width 17.8 H Platelet Count 158 Mean Platelet Volume 10.7 H Immature Granulocytes % 0.200 Neutrophils % 61.3 Lymphocytes % 21.8 Monocytes % 14.3 H Eosinophils % 1.8 Basophils % 0.6 Nucleated Red Blood Cells % 0.0 Immature Granulocytes # 0.010 Neutrophils # 3.1 Lymphocytes # 1.1 Monocytes # 0.7 Eosinophils # 0.1 Basophils # 0.0 Nucleated Red Blood Cells # 0.0 Prothrombin Time 12.5 Prothrombin Time Ratio 1.0 INR International Normalized Ratio 0.92 Sodium Level 141 Potassium Level 3.7 Chloride Level 108 Carbon Dioxide Level 28 Anion Gap 5 Blood Urea Nitrogen 6 L Creatinine 0.68 Est Glomerular Filtrat Rate mL/min > 60 Glucose Level 102 Calcium Level 8.0 L Phosphorus Level 2.9 Magnesium Level 1.9 Total Bilirubin 0.7 Direct Bilirubin 0.00 Indirect Bilirubin 0.7 Aspartate Amino Transf (AST/SGOT) 21 Alanine Aminotransferase (ALT/SGPT) 21 Alkaline Phosphatase 67 Total Protein 6.0 L Albumin 3.1 L Globulin 2.90 Albumin/Globulin Ratio 1.06 Medications Medication Current Medications Dextrose/Sodium Chloride 1,000 ml @ 100 mls/hr Q10H IV Last administered on 12/08/18at 13:18; Admin Dose 100 MLS/HR; Start 12/06/18 at 05:18 IV Flush (NS 3 ml) 3 ml PER PROTOCOL IV ; Start 12/06/18 at 05:30 Ondansetron HCl (Zofran Inj) 4 mg Q6H PRN IV NAUSEA/VOMITING Last administered on 12/07/18 21:30; Admin Dose 4 MG; Start 12/06/18 at 05:30 Morphine Sulfate (morphine) 2 mg Q4H PRN IV .SEVERE PAIN 7-10 Last administered on 12/07/18 15:21; Admin Dose 2 MG; Start 12/06/18 at 05:30 Famotidine (Pepcid Iv) 20 mg Q12 IV Last administered on 12/08/18 08:04; Admin Dose 20 MG; Start 12/06/18 at 09:00 Albuterol/ Ipratropium (Duoneb) 3 ml Q2H RESP THERAPY PRN HHN SHORTNESS OF BREATH; Start 12/06/18 at 05:30 Enoxaparin Sodium (Lovenox) 40 mg DAILY SC Last administered on 12/08/18 08:05; Admin Dose 40 MG; Start 12/08/18 at 09:00 Acetaminophen 100 ml @ 400 mls/hr ONCE PRN IVPB HEADACHE Last administered on 12/08/18 00:13; Admin Dose 400 MLS/HR; Start 12/07/18 at 22:30; Stop 12/08/18 at 22:29 SONU LOZA MD Dec 08, 2018 14:52
--- NOTE | 2018-12-08 15:53 | PN ---
Date/Time of Note Date/Time of Note DATE: 12/08/18 TIME: 15:52 Assessment/Plan Lines/Catheters IV [facility]ter Type (from [facility]): Peripheral IV Assessment/Plan Chief Complaint/Hosp Course Patient is admitted for small bowel obstruction, most probably due to adhesions from previous surgery. Subjective 24 Hr Interval Summary Patient with a resolving small bowel obstruction secondary to adhesions. Passing gas and having bowel movements. NG tube discontinued. Patient can advance his diet and discharged home Exam/Review of Systems Vital Signs Vitals Vital Signs Date Temp Pulse Resp B/P (MAP) Pulse Ox O2 O2 Flow FiO2 Time Delivery Rate 12/08/18 98.3 46 18 131/60 98 Room Air 14:46 (83) 12/06/18 3.0 03:58 Intake and Output 12/07/18 12/07/18 12/08/18 1515:00 23:00 07:00 IntakeIntake Total 1180 ml 1220 ml OutputOutput Total 900 ml 300 ml 700 ml BalanceBalance -900 ml 880 ml 520 ml Results Result Diagram: 12/08/18 0610 12/08/18 0610 LORETTA BIGGS MD Dec 08, 2018 15:53
[2018-12-08 20:00] VITALS: BP 130/62; PULSE 53; RESP 18
[2018-12-09] MEDS: DEXTROSE 5%-0.45% NACL 1,000 ML IV SCH (01:35)
[2018-12-09 02:00] VITALS: BP 128/61; PULSE 50; RESP 17
[2018-12-09 07:53] VITALS: BP 128/60; PULSE 51; RESP 16
[2018-12-09] MEDS: FAMOTIDINE 20 MG INJ IV SCH (08:43)
[2018-12-09] MEDS: ENOXAPARIN 40 MG/0.4 ML SYG SC SCH (08:44)
[2018-12-09] MEDS ORDERED: DOCUSATE SODIUM 10 MG/ML (10ML CUP) PO SCH (09:00)
--- NOTE | 2018-12-09 12:13 | PDOCDIS ---
Discharge Instructions CONDITION [id number] Patient Condition: [id number] Stable HOME CARE INSTRUCTIONS: [id number] Diet Instructions: [id number] Regular [id number] Special Diet: [id number] Activity Restrictions: [id number] Rest between Activity Avoid heavy lifting FOLLOW UP/APPOINTMENTS Follow-up Plan appt primary & GI 1wk. SONU LOZA MD Dec 09, 2018 12:13
[2018-12-09] MEDS ORDERED: FAMO20TA18 PO (12:15)
[2018-12-09] MEDS ORDERED: IBUP-1542 PO (12:15)
[2018-12-09] MEDS ORDERED: DOCU50LI11 PO (12:15)
[2018-12-09] MEDS ORDERED: IBUPROFEN 600 MG TAB PO PRN (12:30)
[2018-12-09 14:38] VITALS: BP 129/61; PULSE 58; RESP 18
== END 2018-12-09 15:07 | disposition home or self-care (01) | DRG 390 ==
LOC: E/R 21:19 → PP2 12-06 01:04
PROVIDERS: ADMIT Internal Medicine; ATTEND Internal Medicine
DX: K56.609 Unspecified intestinal obstruction, unspecified as to partial versus complete obstruction (principal); E87.6 Hypokalemia; J45.909 Unspecified asthma, uncomplicated; L40.9 Psoriasis, unspecified; D64.9 Anemia, unspecified; R59.0 Localized enlarged lymph nodes; Z90.49 Acquired absence of other specified parts of digestive tract; Z96.649 Presence of unspecified artificial hip joint; Z87.891 Personal history of nicotine dependence; Z86.11 Personal history of tuberculosis
CPT/HCPCS: 36415; 74018; 74176; 80048; 80053; 81001; 81003; 83690; 83735; 84100; 85025; 85610; 85730; 96361; 96374; 96375; J0131; J1650; J2270; J2405; J3480; J7030; J7042